=== PATIENT | female | born 1935 | race Caucasian/White ===

== ENCOUNTER 2016-09-07 16:02 | Outpatient (CLI) | payer MEDICARE, OTHER | END 2016-09-07 16:03 | disposition short-term general hospital (02) | LOC: EMS 16:02 | PROVIDERS: ATTEND Surgery | DX: R11.2 Nausea with vomiting, unspecified (principal) | CPT/HCPCS: A0425; A0427; A0888 ==

== ENCOUNTER 2017-05-12 13:39 | Outpatient (CLI) | payer MEDICARE, OTHER | END 2017-05-12 13:40 | disposition short-term general hospital (02) | LOC: EMS 13:39 | PROVIDERS: ATTEND Surgery | DX: H92.01 Otalgia, right ear (principal) | CPT/HCPCS: A0425; A0429; A0888 ==

== ENCOUNTER 2017-11-20 08:38 | Outpatient (CLI) | payer MEDICARE, OTHER | END 2017-11-20 08:39 | disposition critical access hospital (66) | LOC: EMS 08:38 | PROVIDERS: ATTEND Surgery | DX: R53.1 Weakness (principal); R19.7 Diarrhea, unspecified; W19.XXXA Unspecified fall, initial encounter; Y92.009 Unspecified place in unspecified non-institutional (private) residence as the place of occurrence of the external cause | CPT/HCPCS: A0425; A0429 ==

== ENCOUNTER 2017-11-20 08:58 | Emergency (ER) | payer MEDICARE, OTHER ==
[2017-11-20] MEDS ORDERED: SODIUM CHLORIDE 0.9% 1,000 ML IV ONE (09:11)
[2017-11-20] MEDS ORDERED: ACETAMINOPHEN 1,000 MG/100 ML 100 ML IV STA (09:11)
[2017-11-20] MEDS ORDERED: ACETAMINOPHEN 325 MG TABLET PO STA (09:14)
--- NOTE | 2017-11-20 09:29 | ED Physician Documentation ---
History of Present Illness - Stated complaint Stated Complaint: WEAKNESS - Chief complaint Chief Complaint: General - Additonal information Additional information: hx from pt 82 female pmhx multiple myeloma with bony lytic lesions, anemia, neutropenia, chronic back pain, DM neuropathy, CRI, d/p R nephrectomy for renal cell carcinoma Meds revlimid 3 wk on 1 wk off, primidone, hydroxyzine, metformin, folic acid, MVI, gabapentin, loperamide, flonase, levothyroxine, colestipol, carafate, lunesta, fioricet, propanolol, percocet,beconase, macrobid PRN UTI premarin, lomotil, clobetasol cream, tinazidine, omperazole, gent eye gtt All penicllin, bactrim, levaquin, bandages getting chemo for multiple myeloma states she felt dizzy on Monday while doing something with the TV and she fell onto carpeted floor she does not know how she landed she does not recall the fall very well but she does not think she had LOC she was too weak to get up and could not reach her life line so was on the floor alone and incontinent all weekend until her caregiver arrived today and called 911 does not think she hit her head but isn't sure no neck pain R rib pain no abd pain posterior R hip pain denies fever cough NV has diarrhea denies urinary sx no blood thinners in med basket EMS brought in Review of Systems Constitutional: reports: Fatigue. denies: Fever, Chills Throat: denies: Sore throat Cardiac: denies: Chest pain / pressure Respiratory: denies: Dyspnea GI: reports: Diarrhea. denies: Abdominal Pain, Nausea, Vomiting : denies: Dysuria Skin: denies: Laceration (s) Musculoskeletal: reports: Extremity pain, Joint pain. denies: Neck pain Neurologic: reports: Generalized weakness, Syncope (maybe). 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 HEENT: Cataracts - Present Medications Home Medications: Ambulatory Orders Medication Instructions Recorded Confirmed Atorvastatin Calcium [Lipitor] 20 mg PO HS 10/11/12 07/16/13 Butalb/Acetam/Caff 50/325/40 1 each PO Q4-6H PRN 10/11/12 07/16/13 [Fioricet] Cholecalciferol (Vitamin D3) 2,000 unit PO DAILY 10/11/12 07/16/13 [Vitamin D] Clobetasol 0.05% Oint [Temovate] 15 gm TP PRN 10/11/12 07/16/13 Estrogens, Conjugated [Premarin] 0.3 mg PO HS 10/11/12 07/16/13 Eszopiclone [Lunesta] 3 mg PO 10/11/12 07/16/13 Fluticasone [Flonase] 2 sprays CHANDRIKA DAILY 10/11/12 07/16/13 Gabapentin [Neurontin] 300 mg PO TID 10/11/12 07/16/13 Multivitamin [Multivitamins] 1 each PO DAILY 10/11/12 07/16/13 Omeprazole [PriLOSEC] 40 mg PO DAILY 10/11/12 07/16/13 Primidone 100 mg PO TID 10/11/12 07/16/13 Propranolol [Inderal] 80 mg PO QID 10/11/12 07/16/13 Sertraline [Zoloft] 200 mg PO DAILY 10/11/12 07/16/13 glipiZIDE [Glucotrol] 5 mg PO 0730 10/11/12 07/16/13 metFORMIN [Glucophage] 500 mg PO BID 10/11/12 07/16/13 HYDROcod/ACETAM 5/325 [Vicodin 1 - 2 ea PO Q6H PRN #15 tablet 01/05/13 07/16/13 5/325] Liraglutide [Victoza 2-Mio] SQ 06/18/13 07/16/13 Tamsulosin [Flomax] PO DAILY 06/18/13 07/16/13 hydrOXYzine PAMOATE [Vistaril] 25 mg PO Q6HR PRN 06/27/13 07/16/13 Morphine ER [Ms Contin] 20 mg PO BID 07/02/13 07/16/13 - Allergies Allergies/Adverse Reactions: Allergies Allergy/AdvReac Type Severity Reaction Status Date / Time phenazopyridine Allergy Unknown Unknown Verified 11/20/17 09:08 [Phenazopyridine] Sulfa (Sulfonamide Allergy Unknown Hives Verified 11/20/17 09:08 Antibiotics) adhesive Allergy Rash Verified 11/20/17 09:08 celecoxib [From Celebrex] Allergy Rash Verified 11/20/17 09:08 levofloxacin [From Levaquin] Allergy Hives Verified 11/20/17 09:08 Penicillins Allergy Rash Verified 11/20/17 09:08 - Social History Does the pt smoke?: No Smoking Status: Never smoker Does the pt drink ETOH?: No Does the pt have substance abuse?: No - Immunizations Immunizations are current?: No Immunizations: TDAP >10years/unknown - POLST Patient has POLST: No PD ED PE NORMAL - Vitals Vital signs reviewed: Yes - General General: No: Alert and oriented X 3 (mild confusion) - HEENT HEENT: Atraumatic, PERRL - Neck Neck: No bony TTP (but distracting hip injury and so cannot clear) - Cardiac Cardiac: RRR - Respiratory Respiratory: No respiratory distress, Other (TTP R ribs, port s infection) - Abdomen Abdomen: Soft - Back Back: No spinal TTP, Other (no bruises) - Derm Derm: Other (dried stool on legs) - Extremities Extremities: Other (TTP posterior R hip/SI region) - Neuro Neuro: Alert and oriented X 3, rounder and backer 2-12 intact, No motor deficit, No sensory deficit, Normal speech, Other (diffsuely but non focal weakness) Results - Vitals Vitals: Vital Signs - 24 hr 11/20/17 11/21/17 11/21/17 20:01 00:04 08:26 Temperature 37 C Heart Rate 97 92 97 Respiratory 22 16 18 Rate Blood Pressure 127/57 L 125/60 150/90 H O2 Saturation 97 98 99 11/21/17 12:30 Temperature Heart Rate 99 Respiratory 21 Rate Blood Pressure 122/67 O2 Saturation 100 Oxygen O2 Source Room air - EKG (time done) 1018 Rate: Rate (enter#) (80) Rhythm: NSR Intervals: RBBB Compare to prior EKG: Other (RBBB not new) - Labs Labs: Microbiology 11/20/17 14:10 Campylobacter Antigen Assay - Final Stool Stool Culture - Preliminary 11/20/17 14:10 Clostridium difficile (PCR) - Final Stool Occult Blood - Final Laboratory Tests 11/20/17 11/20/17 11/20/17 09:30 09:30 09:30 WBC 3.7 L RBC 3.44 L Hgb 11.5 L Hct 32.9 L MCV 95.6 MCH 33.4 H MCHC 34.9 RDW 18.7 H Plt Count 186 MPV 7.9 Neut # (Auto) 2.8 Lymph # (Auto) 0.4 L [place] # (Auto) 0.1 Eos # (Auto) 0.3 Baso # (Auto) 0.1 Absolute Nucleated RBC 0.00 Nucleated RBC % 0.0 Sodium 138 Potassium 4.0 Chloride 101 Carbon Dioxide 26 Anion Gap 11.0 BUN 19 Creatinine 0.8 Estimated GFR (MDRD) 69 L Glucose 134 H Calcium 8.8 CK-MB (CK-2) 4.0 Troponin I < 0.04 TSH Urine Color Urine Clarity Urine pH Ur Specific Theodore Urine Protein Urine Glucose (UA) Urine Ketones Urine Occult Blood Urine Nitrite Urine Bilirubin Urine Urobilinogen Ur Leukocyte Esterase Ur Microscopic Review Urine Culture Comments 11/20/17 11/20/17 09:30 11:00 WBC RBC Hgb Hct MCV MCH MCHC RDW Plt Count MPV Neut # (Auto) Lymph # (Auto) [place] # (Auto) Eos # (Auto) Baso # (Auto) Absolute Nucleated RBC Nucleated RBC % Sodium Potassium Chloride Carbon Dioxide Anion Gap BUN Creatinine Estimated GFR (MDRD) Glucose Calcium CK-MB (CK-2) Troponin I TSH 3.05 Urine Color YELLOW Urine Clarity CLEAR Urine pH 6.0 Ur Specific Theodore 1.020 Urine Protein NEGATIVE Urine Glucose (UA) NEGATIVE Urine Ketones NEGATIVE Urine Occult Blood NEGATIVE Urine Nitrite NEGATIVE Urine Bilirubin NEGATIVE Urine Urobilinogen 0.2 (NORMAL) Ur Leukocyte Esterase NEGATIVE Ur Microscopic Review NOT INDICATED Urine Culture Comments NOT INDICATED - Rads (name of study) CXR Radiology: See rad report (lytic bnone lesions, no fx no infiltrate, no acute, not new) hip pelvis Radiology: See rad report (no acute, degen changes) CTH Radiology: See rad report (no acute) CT CS Radiology: See rad report (no acute) CT pelvis Radiology: See rad report (numerous lytic lesions unchanged from prior - no acute) PD MEDICAL DECISION MAKING - ED course ED course: spoke with PMD Dr Melton pt now gets onc care at [facility] has had bouts of pna was in a snf in July was dced from home health in September he saw her 3 days ago and she was independent and ambulatory and only came in for a steroid shot for her chronic R side pain no other recent med changes he is aware of Dr melton states daughter Katelyn is the best person to contact - I called both her numbers - no answer - left message Katelyn called - I explained that her mother had fallen and was unable to get up all weekend and was too weak to stand unassisted but that her very extensive work up had not found any infections or injuries meriting admission to the hospital Katelny states she thinks her mother might be faking her sx, that she has responded this way to stress in the past, that she has had recent bad news, also that she cannot afford SNF out of pocket and no recent 3 days stay, Katelyn suggest we "call [facility]PS to get her the care she needs" daughter came in and met with SW SW also thinks may be conversion disorder so we will get telpsych for input either way patient's options are as follows 1) cannot go home because she can not stand unassisted 2) cannot be admitted as she has no admitting diagnosis 3) could go to inpt mental health if telepsych feels will be useful - but is will be very very diff to place a 82 female with cancer who had diarrhea in the ED and cannot stand unassisted 4) she has GREGOR so if not going to mental health, SW can call her machine adjuster leader case trim and try to get her benefits changed to cover SNF or assisted living - this also won't happen at night so pt will be boarding overnight I will be back in AM turned over to syrup mixer pt and family understand the plan resumed care 7 AM 11/21/17 telepscyh done - per note does not think pt will benefit from in mental health so now need to place pt and assist with funding for same anticipate this will be a long process asked for family to bring in pts daily meds so she can take her own per RAHUL pt does have DSHS so is eligible for longterm residential care pt does not want to go to [facility] [place] [facility] anticipate till tomorrow turned over to next shift - Sepsis Event Vital Signs: Vital Signs - 24 hr 11/20/17 11/21/17 11/21/17 20:01 00:04 08:26 Temperature 37 C Heart Rate 97 92 97 Respiratory 22 16 18 Rate Blood Pressure 127/57 L 125/60 150/90 H O2 Saturation 97 98 99 11/21/17 12:30 Temperature Heart Rate 99 Respiratory 21 Rate Blood Pressure 122/67 O2 Saturation 100 Oxygen O2 Source Room air Departure - Departure Clinical Impression: Weakness Condition: Fair
[2017-11-20 09:44] LABS: BASOPHILS # (AUTO) 0.1 10^3/uL (0.0-0.1); BASOPHILS % (AUTO) 1.9 %; EOSINOPHILS # (AUTO) 0.3 10^3/uL (0.0-0.7); EOSINOPHILS % (AUTO) 7.4 %; HGB - HEMOGLOBIN 11.5 g/dL (12.0-16.0); LYMPHOCYTES # (AUTO) 0.4 10^3/uL (1.5-3.5); LYMPHOCYTES % (AUTO) 11.4 %; MEAN CORPUSCULAR HEMOGLOBIN 33.4 pg (27.0-31.0); MEAN CORPUSCULAR HGB CONC 34.9 g/dL (32.0-36.0); MEAN CORPUSCULAR VOLUME 95.6 fL (81.0-99.0); MEAN PLATELET VOLUME 7.9 fL (7.9-10.8); MONOCYTES # (AUTO) 0.1 10^3/uL (0.0-1.0); MONOCYTES % (AUTO) 3.8 %; NEUTROPHILS # (AUTO) 2.8 10^3/uL (1.5-6.6); NEUTROPHILS % (AUTO) 75.5 %; PLT - PLATELET COUNT 186 10^3/uL (130-450); RED BLOOD COUNT 3.44 10^6/uL (4.20-5.40); RED CELL DISTRIBUTION WIDTH 18.7 % (12.0-15.0); WHITE BLOOD COUNT 3.7 x10^3/uL (4.8-10.8)
[2017-11-20 09:56] LABS: CALCIUM 8.8 mg/dL (8.5-10.3); CREATININE 0.8 mg/dL (0.4-1.0)
[2017-11-20 10:00] LABS: TROPONIN I < 0.04 ng/mL (<0.49)
--- NOTE | 2017-11-20 10:48 | XRAY Report ---
Reason: found down X 3 days R ribs pain Procedure Date: 11/20/2017 Accession Number: [id number] / [id number] Procedure: XR - Chest 2 View X-Ray CPT Code: 04573 FULL RESULT: EXAM: CHEST RADIOGRAPHY EXAM DATE: 11/20/2017 09:43 AM. CLINICAL HISTORY: Found down X 3 days R ribs pain. COMPARISON: Reference CT of the chest from 06/20/2013. TECHNIQUE: 2 views. FINDINGS: Lungs/Pleura: Decreased volumes, lungs clear. No effusion or pneumothorax. Mediastinum: A left sided port catheter with the catheter coursing in the left side of a duplicated superior vena cava. Heart size is normal. Other: A fiducial marker is in the right posterior fifth rib. There are expansile lytic rib lesions, possibly old pathologic fractures, but no new acute fractures are identified. A 17 mm lucency in the proximal to mid right humerus probably represents a metastasis. The spinal lytic lesions are not well seen due to technique. 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 Scattered lytic rib lesions, nothing acute. No pneumothorax. RADIA
--- NOTE | 2017-11-20 11:06 | XRAY Report ---
Reason: found down X 3 days R posterior hip pain Procedure Date: 11/20/2017 Accession Number: [id number] / [id number] Procedure: XR - Hip w/Pelvis 2-3V RT CPT Code: FULL RESULT: EXAM: RIGHT HIP AND PELVIS RADIOGRAPHY EXAM DATE: 11/20/2017 09:43 AM. HISTORY: Found down X 3 days R posterior hip pain. COMPARISONS: None. TECHNIQUE: 1 view of the pelvis and 1 view of the hip. FINDINGS: Bones: No acute fracture or bony lesion. Degenerative spurring. Joints: Joint space narrowing. No dislocation. Degenerative changes of the left hip joint and lower lumbar spine. Soft Tissues: Vascular calcifications. IMPRESSION: 1. No acute osseous abnormalities. Normal alignment. 2. Mild degenerative changes of the right hip joint. RADIA
[2017-11-20 12:16] LABS: BILIRUBIN,URINE NEGATIVE (NEGATIVE); GLUCOSE, URINE (UA) NEGATIVE (NEGATIVE); KETONES,URINE (UA) NEGATIVE (NEGATIVE); LEUKOCYTE ESTERASE, URINE NEGATIVE (NEGATIVE); NITRITE,URINE NEGATIVE (NEGATIVE); OCCULT BLOOD,URINE NEGATIVE (NEGATIVE); PROTEIN,URINE NEGATIVE (NEGATIVE); UROBILINOGEN,URINE 0.2 (NORMAL) E.U./dL (NORMAL)
--- NOTE | 2017-11-20 12:20 | CT Report ---
Reason: found down Procedure Date: 11/20/2017 Accession Number: [id number] / [id number] Procedure: CT - Cervical Spine W/O CPT Code: FULL RESULT: EXAM: CT HEAD. CT SCAN OF THE CERVICAL SPINE. EXAM DATE: 11/20/2017 09:56 AM. CLINICAL HISTORY: Found down. COMPARISON: HEAD W/O 07/16/2013 3:53 PM CERVICAL SPINE W/O 11/20/2017 9:42 AM. TECHNIQUE: Noncontrast axial sections through the head and cervical spine. Reformats: Sagittal and coronal of the head, coronal and sagittal of the cervical spine. In accordance with CT protocol optimization, one or more of the following dose reduction techniques were utilized for this exam: automated exposure control, adjustment of mA and/or KV based on patient size, or use of iterative reconstructive technique. FINDINGS CT HEAD: Parenchyma: No intraparenchymal hemorrhage. No evidence of mass, midline shift, or CT findings of infarction. Matthews-white differentiation is distinct. Extraaxial Spaces: Normal for age. No subdural or epidural collections identified. Ventricles: Normal in size and position. Sinuses and orbits: Imaged paranasal sinuses, orbits, and mastoids show no significant abnormality. Bones: No evidence of fracture or calvarial defect. Other: None. FINDINGS CT CERVICAL SPINE: Alignment: The atlantooccipital relationship is preserved. There is no evidence of rotatory subluxation. No scoliosis or spondylolisthesis. Bones: No fracture or bone lesion. Interspace Levels/Facets: There is multilevel degenerative disease which is most pronounced at C4-C6 with mild anterolisthesis of C4 on C5, 2 mm. There is no evidence of traumatic fracture or dislocation. Spinal Canal: No epidural collection is detected. Musculature: Normal. No fatty atrophy. Other: The paravertebral and prevertebral soft tissues are unremarkable. Lung apices demonstrate ground glass opacity. IMPRESSION: Head CT: No acute intracranial abnormality. Cervical Spine CT: No traumatic fracture or dislocation of the cervical spine. RADIA
[2017-11-20 12:23] LABS: CLARITY,URINE CLEAR (CLEAR)
[2017-11-20] MEDS ORDERED: oxyCODONE 5 MG TABLET PO STA (13:30)
--- NOTE | 2017-11-20 15:13 | CT Report ---
Reason: R hip SI region pain, xray neg, cant walk Procedure Date: 11/20/2017 Accession Number: [id number] / [id number] Procedure: CT - Pelvis W/O CPT Code: FULL RESULT: EXAM: CT BONY PELVIS WITHOUT CONTRAST EXAM DATE: 11/20/2017 02:39 PM. CLINICAL HISTORY: Right hip SI region pain, x-ray negative, cannot walk. Past history renal cell carcinoma with bony metastases. COMPARISON: HIP W/PELVIS 2-3V RT 11/20/2017 9:43 AM ABDOMEN/PELVIS W/O 07/17/2013 7:45 PM. TECHNIQUE: Thin-section axial images were acquired of the pelvis without contrast. Post-processing: Coronal and sagittal reformats. Other: None. In accordance with CT protocol optimization, one or more of the following dose reduction techniques were utilized for this exam: automated exposure control, adjustment of mA and/or KV based on patient size, or use of iterative reconstructive technique. FINDINGS: Bones: There are numerous lytic foci with sclerotic margins seen in the femoral heads and bony pelvis. Most of these lesions were present on the prior study in 2013. The findings are consistent with the clinical history of renal cell carcinoma with bony metastases. No visible fracture. Sacroiliac Joints: Mild bilateral sacroiliac joint osteoarthritis. Symphysis Pubis: Unremarkable. Mild bilateral hip osteoarthritis. Musculature: Normal. No fatty atrophy. Pelvic Cavity: Bladder distention. No lymphadenopathy. No free fluid. Other: No lymphadenopathy. No free air or free fluid. The other visualized soft tissues are unremarkable. IMPRESSION: 1. Numerous lytic lesions with sclerotic margins throughout the bony pelvis, upper femora and lower lumbar spine consistent with known metastatic disease not significantly changed since the prior study. RADIA
--- NOTE | 2017-11-21 00:35 | TELEPSYCH PHYS NOTE ---
Telepsych Note - CHIEF COMPLAINT/HX OF PRESENT ILLNESS Cheif Complaint and History of Present Illness: Chief Complaint: weakness History of Present Illness: Pt is an 82 yo female with a hx of depression, anxiety and per her daughter, dementia, diagnosed in 2016. Pt is AxOx2, Date, May. Pt presented to the ED, BIB EMS, called by her EYEGLASS MAKER after she was found on the ground in her home. Pt reported to ED that she was on the floor for the past 2- 3 days. Per staff, the pts medical workup was negative for any acute issues. ED staff consulted psychiatry as the pts daughter expressed concern that the pt was feigning illness, - specifically her current weakness and her recent reported fall. Pt seen and evaluated. Chart reviewed and appreciated. Pt reports she is currently in the hospital as she became dizzy, tripped and fell in her home. States she felt a lot of pain post her fall on her right hip and as a result had difficulty getting up from her fall. When asked why she did not reach out for help, the pt reported she had no access to her phone. States while on the floor she was in continent of stool and urine. States she was embarrassed by her EYEGLASS MAKER seeing her in the mess and then she helped to clean me up. States she is unsure of what she stripped on. States she is surprised her ED workup was negative. States she still experiences pain in her hip though reports it has improved from earlier. States her inability to walk is more related to pain than weakness. Pt reports that she is not depressed though states she has felt depressed in that past. Spoke to pts daughter, Katelyn @ [phone] who reports pt has a prior similar episodes in which during periods of more significant stress or worsening mood she has experienced falls. States at her baseline, she walks with a walker and has home PT for additional strength building. States in the past when she has been more severely depressed she has gone through periods in which she stops eating and drinking. States there is no evidence that the pt was not eating nor drinking. Also, no evidence that the pt stopped taking her medications. States this episode is atypical as she reports looking at her home it appears as though the pt was moving about in her home on the ground. States when she has fallen previously she has reached out for help immediately. States she has been discussing with her the need for retirement placement at this time.. States the pt continues to refuse. States there have been multiple family stressors which have been difficult on everyone. States the pts grandson unexpectedly in March, pts son is medically sick. Katelyn also reports that she is also medical sick with heart problems. States as a result she has been unable to do all of the things she usually does with the pt. States she knows this is a large trigger for her as well. Of note, when property underwriter asked the pt if there were any stressors in her life, pt initially reported no, then stated that she was concerned about her daughters heart problems. Pt reported that she was less concerned about her own medical issues as she reports she is older. States she has been living with cancer for the past 5 years and states my numbers are okay now. She states she is not concerned about her reported current inability to walk as she states she will work with the staff to get myself moving again. She does discuss that my daughter wants me to go to a retirement but I want to go to my home. On ROS, pt denies AVHs, delusions nor SI/HI. Pts affect is incongruent to the situation/content. She reports feeling unconcerned by her report of being unable to walk. Pt does have multiple medical problems, she is elderly and frail thus becoming dizzy and tripping vs. falling is a real possibility. Her affect however is incongruent. She expressed little to no concern about her rep orted current inability to walk and despite her daughter indicating that she is fully aware of all the stressors, pt expressed having no current stress beyond some concern over her daughters health problems. This apparent forgetfulness may be secondary to her reported diagnosis of dementia. There is no current evidence of imminent dangerousness that would require psychiatric admission. Pt denies SI/HI nor psychotic sxs. She is future oriented and notes a willingness and desire to work with medical staff an PT to regain her strength and resume her baseline level of functioning. Pts has home aids however, she reportedly still fell and ended up on the ground x approx.. 3 days. She admits to having difficulty caring for all of her needs. She likely requires a higher level of care given her declining cognitive and functional limitations. Pt should be evaluated for retirement placement - SI/HI/SELF HARM SI/HI/Self Harm Text (Current or History of):: Denies current nor prior hx of suicidality nor homicidality. - PSYCHIATRIC HX/TREATMENT HX Psychiatric: Depression Psychiatric/Treatment Hx Other: No hx of inpt nor outpt treatment. Medications Rxed by her PCP. - MEDICAL HX Does the pt have a hx of MRSA?: No Eyes, Ears, Nose, Throat: None Cardiovascular: Hypertension, High cholesterol Respiratory: None Endocrine/Autoimmune: Type 2 diabetes Gastrointestinal: GERD Musculoskeletal: Chronic back pain - SURGICAL HX General: Cholecystectomy Orthopedic: Knee replacement, Shoulder arthroplasty Gynecologic: Hysterectomy - HOME MEDICATIONS Home Meds (as last confirmed): Patient History Medication Instructions Recorded Confirmed Atorvastatin Calcium [Lipitor] 20 mg PO HS 10/11/12 07/16/13 Butalb/Acetam/Caff 50/325/40 1 each PO Q4-6H PRN 10/11/12 07/16/13 [Fioricet] Cholecalciferol (Vitamin D3) 2,000 unit PO DAILY 10/11/12 07/16/13 [Vitamin D] Clobetasol 0.05% Oint [Temovate] 15 gm TP PRN 10/11/12 07/16/13 Estrogens, Conjugated [Premarin] 0.3 mg PO HS 10/11/12 07/16/13 Eszopiclone [Lunesta] 3 mg PO 10/11/12 07/16/13 Fluticasone [Flonase] 2 sprays CHANDRIKA DAILY 10/11/12 07/16/13 Gabapentin [Neurontin] 300 mg PO TID 10/11/12 07/16/13 Multivitamin [Multivitamins] 1 each PO DAILY 10/11/12 07/16/13 Omeprazole [PriLOSEC] 40 mg PO DAILY 10/11/12 07/16/13 Primidone 100 mg PO TID 10/11/12 07/16/13 Propranolol [Inderal] 80 mg PO QID 10/11/12 07/16/13 Sertraline [Zoloft] 200 mg PO DAILY 10/11/12 07/16/13 glipiZIDE [Glucotrol] 5 mg PO 0730 10/11/12 07/16/13 metFORMIN [Glucophage] 500 mg PO BID 10/11/12 07/16/13 Liraglutide [Victoza 2-Mio] SQ 06/18/13 07/16/13 Tamsulosin [Flomax] PO DAILY 06/18/13 07/16/13 hydrOXYzine PAMOATE [Vistaril] 25 mg PO Q6HR PRN 06/27/13 07/16/13 Morphine ER [Ms Contin] 20 mg PO BID 07/02/13 07/16/13 - ALLERGIES Allergies (as last confirmed): Allergies Allergy/AdvReac Type Severity Reaction Status Date / Time phenazopyridine Allergy Unknown Unknown Verified 11/20/17 09:08 [Phenazopyridine] Sulfa (Sulfonamide Allergy Unknown Hives Verified 11/20/17 09:08 Antibiotics) adhesive Allergy Rash Verified 11/20/17 09:08 celecoxib [From Celebrex] Allergy Rash Verified 11/20/17 09:08 levofloxacin [From Levaquin] Allergy Hives Verified 11/20/17 09:08 Penicillins Allergy Rash Verified 11/20/17 09:08 - FAMILY PSYCH/SUICIDE/SOCIAL HX-MENTAL Family - Suicide - Social Hx and Mental Status Exam: Family Psych hx - none reported Mental Status Exam: Appearance and attire: Dressed in hospital attire Attitude and behavior: cooperative Affect and mood: anxious/bright Association and thought processes: forgetful Thought content: denies delusions. Denies SI/HI. Perceptual: Denies AVHs Sensorium, memory, and orientation AxOx2 Insight and judgment: limited - TREATMENT/PHARMACOLOGICAL RECOMMENDATION Treatment - Pharmacological - Therapy Recommendations: Diagnosis: Major Neurocognitive disorder, dementia, R/O conversion disorder, unspecified Depressive Disorder. Assessment: Pt does have multiple medical problems, she is elderly and frail thus becoming dizzy and tripping vs. falling is a real possibility. Her affect however is incongruent. She expressed little to no concern about her reported current inability to walk and despite her daughter indicating that she is fully aware of all the stressors, pt expressed having no current stress beyond some concern over her daughters health problems. This apparent forgetfulness may be secondary to her reported diagnosis of dementia. There is no current evidence of imminent dangerousness that would require psychiatric admission. Pt denies SI/HI nor psychotic sxs. She is future oriented and notes a willingness and desire to work with medical staff an PT to regain her strength and resume her baseline level of functioning. Pts has home aids however, she reportedly still fell and ended up on the ground x approx.. 3 days. She admits to having difficulty caring for all of her needs. She likely requires a higher level of care given her declining cognitive and functional limitations. Pt should be evaluated for retirement placement Treatment Recommendations: No current indication for psychiatry inpt placement. She likely requires a higher level of ongoing care given her declining cognitive and functional limitations. Pt should be evaluated for possible retirement placement Continue zoloft - TIME SPENT & PROVIDER LOCATION Telepsych consultation conducted via videoconferencing: Yes List names and roles of persons who participated in consult: Patient, Katelyn Maldonado (daughter) Telepsych Provider Location: [place] Time Telepsych consult began: 01:30 Time Telepsych consult completed: 02:10
--- NOTE | 2017-11-21 05:38 | ED Physician Documentation ---
ED Addendum - Addendum Addendum: 11/21/17 05:37 Patient was signed over to me by dr. olson. Patient was evaluated by telepsych who did not recommend inpatient psychiatric care, but agreed that the patient might need further resources. Patient was signed back over to Dr. Olson pending social work evaluation.
[2017-11-22] MEDS ORDERED: ACETAMINOPHEN 325 MG TABLET PO STA (09:44)
--- NOTE | 2017-11-22 15:15 | ED Physician Documentation ---
ED Addendum - Addendum Addendum: 11/22/17 15:13 Patient feeling better today and ambulating independently. She is comfortable going home at this time and will follow up with her [facility] program. Daughter comfortable with plan per SW. No acute emergency medical condition at this time. She may be taking too many of her narcotics and recommend that she stay away from narcotics. Patient counseled regarding signs and symptoms for which I believe and urgent re-evaluation would be necessary. Patient with good understanding of and agreement to plan and is comfortable going home at this time This document was made in part using voice recognition software. While efforts are made to proofread this document, sound alike and grammatical errors may occur. Departure - Departure Disposition: 01 Home, Self Care Clinical Impression: Weakness Condition: Good Instructions: ED Weakness [facility]O Follow-Up: Chaparro Avina MD [Primary Care Provider] - Within 3 Days Comments: Return if you worsen. Follow up with [facility] as instructed by Social work today. You should use a walker at home and try to avoid narcotic medications.
[2017-11-22 18:44] VITALS: BP 132/74
== END 2017-11-22 18:43 | disposition home or self-care (01) ==
LOC: EDUNIT# → ED 08:58
DX: R53.1 Weakness (principal); C90.00 Multiple myeloma not having achieved remission; I45.2 Bifascicular block; F32.9 Major depressive disorder, single episode, unspecified; F03.90 Unspecified dementia, unspecified severity, without behavioral disturbance, psychotic disturbance, mood disturbance, and anxiety; E11.42 Type 2 diabetes mellitus with diabetic polyneuropathy; Z79.84 Long term (current) use of oral hypoglycemic drugs; E78.00 Pure hypercholesterolemia, unspecified; Z96.659 Presence of unspecified artificial knee joint; Z85.53 Personal history of malignant neoplasm of renal pelvis; Z90.5 Acquired absence of kidney; Z92.21 Personal history of antineoplastic chemotherapy
CPT/HCPCS: 36415; 51701; 70450; 71046; 72125; 72192; 73502; 80048; 81003; 82270; 82553; 84443; 84484; 85025; 87045; 87046; 87493; 93005; 96361; 96374; 99284; 99285; A9270; G0425; Q3014; 81001; 87086

== ENCOUNTER 2017-12-20 11:42 | Outpatient (CLI) | payer MEDICARE, OTHER | END 2017-12-20 11:43 | disposition critical access hospital (66) | LOC: EMS 11:42 | PROVIDERS: ATTEND Surgery | DX: R06.02 Shortness of breath (principal) | CPT/HCPCS: A0425; A0429 ==

== ENCOUNTER 2017-12-20 12:07 | Inpatient (IN) | payer MEDICARE, OTHER ==
--- NOTE | 2017-12-20 13:01 | XRAY Report ---
Reason: hypoxia Procedure Date: 12/20/2017 Accession Number: [id number] / [id number] Procedure: XR - Chest 1 View X-Ray CPT Code: 16707 FULL RESULT: EXAM: CHEST RADIOGRAPHY EXAM DATE: 12/20/2017 12:47 PM. CLINICAL HISTORY: Hypoxia. COMPARISON: CHEST 2 VIEW 11/20/2017 9:43 AM CHEST W/O 06/20/2013 4:57 PM. TECHNIQUE: 1 view. FINDINGS: Lungs/Pleura: No focal opacities evident. No pleural effusion. No pneumothorax. Lung volumes are overall low. Mediastinum: Stable cardiomediastinal silhouette. Other: Chest port in stable position, known duplicated SVC. IMPRESSION: Low lung volumes with no detected acute cardiopulmonary abnormality. RADIA
[2017-12-20 13:12] LABS: BASOPHILS # (AUTO) 0.1 10^3/uL (0.0-0.1); BASOPHILS % (AUTO) 3.2 %; EOSINOPHILS # (AUTO) 0.2 10^3/uL (0.0-0.7); EOSINOPHILS % (AUTO) 5.6 %; HGB - HEMOGLOBIN 10.3 g/dL (12.0-16.0); LYMPHOCYTES # (AUTO) 0.6 10^3/uL (1.5-3.5); LYMPHOCYTES % (AUTO) 20.1 %; MEAN CORPUSCULAR HEMOGLOBIN 34.3 pg (27.0-31.0); MEAN CORPUSCULAR HGB CONC 33.9 g/dL (32.0-36.0); MEAN CORPUSCULAR VOLUME 101.1 fL (81.0-99.0); MEAN PLATELET VOLUME 8.4 fL (7.9-10.8); MONOCYTES # (AUTO) 0.4 10^3/uL (0.0-1.0); MONOCYTES % (AUTO) 12.7 %; NEUTROPHILS # (AUTO) 1.7 10^3/uL (1.5-6.6); NEUTROPHILS % (AUTO) 58.4 %; PLT - PLATELET COUNT 151 10^3/uL (130-450); RED BLOOD COUNT 3.01 10^6/uL (4.20-5.40); RED CELL DISTRIBUTION WIDTH 19.4 % (12.0-15.0); WHITE BLOOD COUNT 2.9 x10^3/uL (4.8-10.8)
[2017-12-20] MEDS ORDERED: IPRATROPIUM/ALBUTEROL 3 ML NEB INH STA (13:20)
[2017-12-20 13:27] LABS: ALBUMIN 2.9 g/dL (3.2-5.5); ALBUMIN/GLOBULIN RATIO 0.9 (1.0-2.2); BILIRUBIN,TOTAL 0.7 mg/dL (0.2-1.0); CALCIUM 7.7 mg/dL (8.5-10.3); CREATININE 0.9 mg/dL (0.4-1.0); TOTAL PROTEIN 6.1 g/dL (6.7-8.2)
[2017-12-20 13:29] LABS: BILIRUBIN,URINE NEGATIVE (NEGATIVE); GLUCOSE, URINE (UA) NEGATIVE (NEGATIVE); KETONES,URINE (UA) NEGATIVE (NEGATIVE); LEUKOCYTE ESTERASE, URINE TRACE (NEGATIVE); NITRITE,URINE NEGATIVE (NEGATIVE); OCCULT BLOOD,URINE NEGATIVE (NEGATIVE); PROTEIN,URINE 30 mg/dL (NEGATIVE); UROBILINOGEN,URINE 0.2 (NORMAL) E.U./dL (NORMAL)
[2017-12-20 13:36] LABS: CLARITY,URINE CLOUDY (CLEAR)
[2017-12-20 13:37] LABS: BACTERIA,URINE Many /HPF (None Seen); RBC,URINE 0-5 /HPF (0-5); SQUAMOUS EPITHELIAL CELL,UR NONE SEEN (<= Few); WBC CLUMPS,URINE PRESENT
[2017-12-20 13:58] LABS: PLATELET ESTIMATE, MANUAL NORMAL (130-450,000) (NORMAL); PLATELET MORPHOLOGY 1+ LARGE PLATELETS (NORMAL)
[2017-12-20] MEDS ORDERED: cefTRIAXone 1 GM VIAL IVP STA (14:26)
[2017-12-20] MEDS ORDERED: ALBUTEROL NEB 2.5 MG/3 ML INH STA (14:47)
--- NOTE | 2017-12-20 14:49 | ED Physician Documentation ---
History of Present Illness - Stated complaint Stated Complaint: DYSPNEA - Chief complaint Chief Complaint: Resp - History obtained from History obtained from: Patient, EMS - History of Present Illness Timing: Last night Pain level max: 0 Pain level now: 0 Improved by: rest Worsened by: exertion - Additonal information Additional information: Patient is an 82-year-old female who presents to the emergency department with dyspnea since last night. She states that she feels similar to when she has had pneumonia. Has been on multiple antibiotics for UTIs recently. Has not fallen or struck her head. Denies any pain anywhere. Does have a nonproductive cough. Unsure if she has had fevers or not. She was hypoxic when EMS arrived, pulse ox of 80. Does not use oxygen at home. Also does not currently use inhalers or nebulizers. She states that she does use a nebulizer when she has pneumonia Review of Systems Ten Systems: 10 systems reviewed and negative Constitutional: reports: Chills. denies: Fever Ears: denies: Ear pain Nose: reports: Rhinorrhea / runny nose Throat: denies: Sore throat Cardiac: denies: Chest pain / pressure Respiratory: reports: Dyspnea, Cough, Wheezing GI: denies: Abdominal Pain, Nausea, Vomiting, Diarrhea Skin: denies: Rash Musculoskeletal: denies: Neck pain, Back pain Neurologic: denies: Focal weakness, Numbness, Headache PD PAST MEDICAL HISTORY - Past Medical History Cardiovascular: Hypertension, High cholesterol Respiratory: None Endocrine/Autoimmune: Type 2 diabetes GI: GERD HEENT: None Psych: Depression Musculoskeletal: Chronic back pain - Past Surgical History Past Surgical History: Yes General: Cholecystectomy Ortho: Knee replacement, Shoulder arthroplasty /METHODOLOGIST: Hysterectomy HEENT: Cataracts - Present Medications Home Medications: Ambulatory Orders Medication Instructions Recorded Confirmed Atorvastatin Calcium [Lipitor] 20 mg PO HS 10/11/12 07/16/13 Butalb/Acetam/Caff 50/325/40 1 each PO Q4-6H PRN 10/11/12 07/16/13 [Fioricet] Cholecalciferol (Vitamin D3) 2,000 unit PO DAILY 10/11/12 07/16/13 [Vitamin D] Clobetasol 0.05% Oint [Temovate] 15 gm TP PRN 10/11/12 07/16/13 Estrogens, Conjugated [Premarin] 0.3 mg PO HS 10/11/12 12/20/17 Eszopiclone [Lunesta] 3 mg PO QPM PRN 10/11/12 12/20/17 Fluticasone [Flonase] 2 sprays CHNADRIKA DAILY 10/11/12 07/16/13 Gabapentin [Neurontin] 300 mg PO TID 10/11/12 07/16/13 Multivitamin [Multivitamins] 1 each PO DAILY 10/11/12 07/16/13 Primidone 100 mg PO TID 10/11/12 07/16/13 Propranolol [Inderal] 80 mg PO QID 10/11/12 07/16/13 glipiZIDE [Glucotrol] 5 mg PO 0730 10/11/12 07/16/13 metFORMIN [Glucophage] 500 mg PO BID 10/11/12 07/16/13 HYDROcod/ACETAM 5/325 [Vicodin 1 - 2 ea PO Q6H PRN #15 tablet 01/05/13 07/16/13 5/325] Liraglutide [Victoza 2-Mio] SQ 06/18/13 07/16/13 Tamsulosin [Flomax] PO DAILY 06/18/13 07/16/13 hydrOXYzine PAMOATE [Vistaril] 25 mg PO Q6HR PRN 06/27/13 07/16/13 Morphine ER [Ms Contin] 20 mg PO BID 07/02/13 07/16/13 Diphenoxylate HCl/Atropine 1 tab PO BID PRN 12/20/17 12/20/17 [Diphenoxylate-Atrop 2.5-0.025] Omeprazole 40 mg PO BIDAC 12/20/17 12/20/17 Sertraline HCl 100 mg PO DAILY 12/20/17 12/20/17 - Allergies Allergies/Adverse Reactions: Allergies Allergy/AdvReac Type Severity Reaction Status Date / Time phenazopyridine Allergy Unknown Unknown Verified 12/20/17 12:27 [Phenazopyridine] Sulfa (Sulfonamide Allergy Unknown Hives Verified 12/20/17 12:27 Antibiotics) adhesive Allergy Rash Verified 12/20/17 12:27 celecoxib [From Celebrex] Allergy Rash Verified 12/20/17 12:27 levofloxacin [From Levaquin] Allergy Hives Verified 12/20/17 12:27 Penicillins Allergy Rash Verified 12/20/17 12:27 morphine AdvReac Unknown Verified 12/20/17 20:44 - Social History Does the pt smoke?: No Smoking Status: Never smoker Does the pt drink ETOH?: No Does the pt have substance abuse?: No - Immunizations Immunizations are current?: No Immunizations: TDAP >10years/unknown - POLST Patient has POLST: No PD ED PE NORMAL - Vitals Vital signs reviewed: Yes - General General: Alert and oriented X 3, No acute distress - HEENT HEENT: Moist mucous membranes - Neck Neck: Supple, no meningeal sign - Cardiac Cardiac: RRR - Respiratory Respiratory: Other (Diminished breath sounds bilaterally) - Abdomen Abdomen: Soft, Non tender, Non distended - Derm Derm: Warm and dry - Extremities Extremities: No calf tenderness / cord - Neuro Neuro: Alert and oriented X 3 Results - Vitals Vitals: Vital Signs - 24 hr 12/20/17 12/20/17 12/20/17 12:20 13:55 14:16 Temperature 36.8 C Heart Rate 79 70 78 Heart Rate [ Brachial] Respiratory 18 16 20 Rate Blood Pressure 111/73 122/86 H Blood Pressure [Right Brachial artery] O2 Saturation 97 95 12/20/17 12/20/17 12/20/17 14:43 14:44 14:45 Temperature Heart Rate Heart Rate [ Brachial] Respiratory Rate Blood Pressure Blood Pressure [Right Brachial artery] O2 Saturation 90 L 85 L 95 12/20/17 12/20/17 12/20/17 15:03 17:00 18:38 Temperature 37.1 C Heart Rate 78 78 Heart Rate [ 80 Brachial] Respiratory 18 16 20 Rate Blood Pressure 117/62 Blood Pressure 120/60 [Right Brachial artery] O2 Saturation 99 97 Oxygen O2 Source Nasal cannula Oxygen Flow Rate 2 - Labs Labs: Laboratory Tests 12/20/17 12/20/17 12/20/17 12:52 12:52 12:52 WBC 2.9 L RBC 3.01 L Hgb 10.3 L Hct 30.5 L MCV 101.1 H MCH 34.3 H MCHC 33.9 RDW 19.4 H Plt Count 151 MPV 8.4 Neut # (Auto) 1.7 Lymph # (Auto) 0.6 L [place] # (Auto) 0.4 Eos # (Auto) 0.2 Baso # (Auto) 0.1 Absolute Nucleated RBC 0.00 Nucleated RBC % 0.0 Manual Slide Review Indicated WBC Morphology NORMAL APPEARANCE Platelet Estimate NORMAL (130-450,000) Platelet Morphology 1+ LARGE PLATELETS RBC Morph Micro Appear 1+ HYPOCHROMASIA D-Dimer Sodium 137 Potassium 4.1 Chloride 99 L Carbon Dioxide 27 Anion Gap 11.0 BUN 17 Creatinine 0.9 Estimated GFR (MDRD) 60 L Glucose 142 H Lactic Acid Calcium 7.7 L Total Bilirubin 0.7 AST 16 ALT 13 Alkaline Phosphatase 111 Troponin I B-Natriuretic Peptide 1146 H Total Protein 6.1 L Albumin 2.9 L Globulin 3.2 Albumin/Globulin Ratio 0.9 L Lipase 23 Urine Color Urine Clarity Urine pH Ur Specific Allison Urine Protein Urine Glucose (UA) Urine Ketones Urine Occult Blood Urine Nitrite Urine Bilirubin Urine Urobilinogen Ur Leukocyte Esterase Urine RBC Urine WBC Urine WBC Clumps Ur Squamous Epith Cells Urine Bacteria Ur Microscopic Review Urine Culture Comments 12/20/17 12/20/17 12/20/17 13:12 15:15 16:25 WBC RBC Hgb Hct MCV MCH MCHC RDW Plt Count MPV Neut # (Auto) Lymph # (Auto) [place] # (Auto) Eos # (Auto) Baso # (Auto) Absolute Nucleated RBC Nucleated RBC % Manual Slide Review WBC Morphology Platelet Estimate Platelet Morphology RBC Morph Micro Appear D-Dimer > 1050.0 H Sodium Potassium Chloride Carbon Dioxide Anion Gap BUN Creatinine Estimated GFR (MDRD) Glucose Lactic Acid 1.0 Calcium Total Bilirubin AST ALT Alkaline Phosphatase Troponin I B-Natriuretic Peptide Total Protein Albumin Globulin Albumin/Globulin Ratio Lipase Urine Color YELLOW Urine Clarity CLOUDY Urine pH 6.0 Ur Specific Allison 1.025 Urine Protein 30 H Urine Glucose (UA) NEGATIVE Urine Ketones NEGATIVE Urine Occult Blood NEGATIVE Urine Nitrite NEGATIVE Urine Bilirubin NEGATIVE Urine Urobilinogen 0.2 (NORMAL) Ur Leukocyte Esterase TRACE H Urine RBC 0-5 Urine WBC >25 H Urine WBC Clumps PRESENT Ur Squamous Epith Cells NONE SEEN Urine Bacteria Many H Ur Microscopic Review INDICATED Urine Culture Comments INDICATED 12/20/17 16:25 WBC RBC Hgb Hct MCV MCH MCHC RDW Plt Count MPV Neut # (Auto) Lymph # (Auto) [place] # (Auto) Eos # (Auto) Baso # (Auto) Absolute Nucleated RBC Nucleated RBC % Manual Slide Review WBC Morphology Platelet Estimate Platelet Morphology RBC Morph Micro Appear D-Dimer Sodium Potassium Chloride Carbon Dioxide Anion Gap BUN Creatinine Estimated GFR (MDRD) Glucose Lactic Acid Calcium Total Bilirubin AST ALT Alkaline Phosphatase Troponin I 0.44 B-Natriuretic Peptide Total Protein Albumin Globulin Albumin/Globulin Ratio Lipase Urine Color Urine Clarity Urine pH Ur Specific Allison Urine Protein Urine Glucose (UA) Urine Ketones Urine Occult Blood Urine Nitrite Urine Bilirubin Urine Urobilinogen Ur Leukocyte Esterase Urine RBC Urine WBC Urine WBC Clumps Ur Squamous Epith Cells Urine Bacteria Ur Microscopic Review Urine Culture Comments - Rads (name of study) cxr Radiology: Prelim report reviewed, EMP read contemporaneously, See rad report (No acute abnormality) PD MEDICAL DECISION MAKING - ED course Complexity details: reviewed results, re-evaluated patient, considered differential, d/w patient ED course: Patient is an 82-year-old female who presents to the emergency department with difficulty breathing since last night. States it feels similar to her prior episodes of pneumonia when inhalers have helped. Given nebulizer treatments and does feel better but is persistently hypoxic. We will admit her to the hospital for further evaluation and care. Discussed the case with Dr. Cade, hospitalist who accepts This document was made in part using voice recognition software. While efforts are made to proofread this document, sound alike and grammatical errors may occur. Departure - Departure Disposition: [facility] DC/Xfer Clinical Impression: Hypoxia UTI (urinary tract infection) Qualifiers: Urinary tract infection type: acute cystitis Hematuria presence: without hematuria Qualified Code(s): N30.00 - Acute cystitis without hematuria URI (upper respiratory infection) Qualifiers: URI type: unspecified viral URI Qualified Code(s): J06.9 - Acute upper respiratory infection, unspecified Condition: Stable Discharge Date/Time: 12/20/17 18:37
[2017-12-20] MEDS ORDERED: ALBUTEROL NEB 2.5 MG/3 ML INH PRN (15:54)
[2017-12-20] MEDS ORDERED: IPRATROPIUM/ALBUTEROL 3 ML NEB INH PRN (15:54)
[2017-12-20] MEDS ORDERED: SODIUM CHLORIDE FLUSH 0.9% 10 ML SYRINGE IVP PRN (16:03)
[2017-12-20] MEDS ORDERED: ONDANSETRON 4 MG/2 ML VIAL IVP PRN (16:03)
[2017-12-20] MEDS ORDERED: methylPREDNISolone SUCCINATE 40 MG/ML VIAL IVP SCH (17:00)
--- NOTE | 2017-12-20 17:00 | HISTORY & PHYSICAL EXAMINATION ---
Chief Complaint - Chief Complaint Chief Complaint: shortness of breath History of Present Illness - History of Present Illness HPI Comment/Other: Ms. 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 pt report she suddenly developed shortness of breath on last night, and continue to have SOB today. She denies hx of Asthma, or COPD. She denies fever, chill, cough, chest pain. CXR is unremarkable. pt had significant elevated D-dimer. CTA reveals moderate to large clot burden with central embolus, consistent with associated right heart strain. Dr. Camacho helped to call [facility] intensive team. From them, recommendations are: treat with Heparin, no TPA in consideration of high risk of intracranial bleeding based on pt's age, medical history. History - Past Medical History Cardiovascular: reports: Hypertension, High cholesterol Respiratory: reports: None Endocrine/Autoimmune: reports: Type 2 diabetes GI: reports: GERD HEENT: reports: None Psych: reports: Depression Musculoskeletal: reports: Chronic back pain MRSA Hx?: No - Past Surgical History General: reports: Cholecystectomy Ortho: reports: Knee replacement, Shoulder arthroplasty /[employer]: reports: Hysterectomy HEENT: reports: Cataracts - Family & Social History Family History: Mother: , Cancer, COPD/Emphysema, Father: Family History Comment/Other: pt is living [facility], pt had four children. pt did not know much about her father medical history, but know her mother from cancer and COPD and heavy smoking. - POLST Patient has POLST: No POLST Status: Full Code Meds/Allgy - Home Medications Home Medications: Ambulatory Orders Medication Instructions Recorded Confirmed Atorvastatin Calcium [Lipitor] 20 mg PO HS 10/11/12 07/16/13 Butalb/Acetam/Caff 50/325/40 1 each PO Q4-6H PRN 10/11/12 07/16/13 [Fioricet] Cholecalciferol (Vitamin D3) 2,000 unit PO DAILY 10/11/12 07/16/13 [Vitamin D] Clobetasol 0.05% Oint [Temovate] 15 gm TP PRN 10/11/12 07/16/13 Estrogens, Conjugated [Premarin] 0.3 mg PO HS 10/11/12 12/20/17 Eszopiclone [Lunesta] 3 mg PO QPM PRN 10/11/12 12/20/17 Fluticasone [Flonase] 2 sprays CHANDRIKA DAILY 10/11/12 07/16/13 Gabapentin [Neurontin] 300 mg PO TID 10/11/12 07/16/13 Multivitamin [Multivitamins] 1 each PO DAILY 10/11/12 07/16/13 Primidone 100 mg PO TID 10/11/12 07/16/13 Propranolol [Inderal] 80 mg PO QID 10/11/12 07/16/13 glipiZIDE [Glucotrol] 5 mg PO 0730 10/11/12 07/16/13 metFORMIN [Glucophage] 500 mg PO BID 10/11/12 07/16/13 HYDROcod/ACETAM 5/325 [Vicodin 1 - 2 ea PO Q6H PRN #15 tablet 01/05/13 07/16/13 5/325] Liraglutide [Victoza 2-Mio] SQ 06/18/13 07/16/13 Tamsulosin [Flomax] PO DAILY 06/18/13 07/16/13 hydrOXYzine PAMOATE [Vistaril] 25 mg PO Q6HR PRN 06/27/13 07/16/13 Morphine ER [Ms Contin] 20 mg PO BID 07/02/13 07/16/13 Diphenoxylate HCl/Atropine 1 tab PO BID PRN 12/20/17 12/20/17 [Diphenoxylate-Atrop 2.5-0.025] Omeprazole 40 mg PO BIDAC 12/20/17 12/20/17 Sertraline HCl 100 mg PO DAILY 12/20/17 12/20/17 - Allergies Allergies/Adverse Reactions: Allergies Allergy/AdvReac Type Severity Reaction Status Date / Time phenazopyridine Allergy Unknown Nausea Verified 12/21/17 00:26 [Phenazopyridine] Sulfa (Sulfonamide Allergy Unknown Hives Verified 12/20/17 12:27 Antibiotics) adhesive Allergy Rash Verified 12/20/17 12:27 celecoxib [From Celebrex] Allergy Rash Verified 12/20/17 12:27 levofloxacin [From Levaquin] Allergy Hives Verified 12/20/17 12:27 Penicillins Allergy Rash Verified 12/20/17 12:27 morphine AdvReac Unknown Verified 12/20/17 20:44 Review of Systems - Constitutional Constitutional: denies: Fatigue, Fever, Chills, Malaise, Weakness, Poor appetite, Diaphoresis, Night sweats - Eyes Eyes: denies: Pain, Irritation, Amaurosis, Blurred vision, Spots in vision, Field loss, Vision loss, Dipolpia - Ears, Nose & Throat Ears, Nose & Throat: denies: Ear pain, Hearing loss, Hearing aids, Tinnitus, Vertigo, Nasal pain, Nasal discharge, Nosebleeds, Nasal obstruction, Nasal congestion, Postnasal drainage, Dentures, Sore throat, Hoarseness, Mouth lesions, Bleeding gums, Dental decay - Cardiovascular Cariovascular: reports: Exertional dyspnea, Decr. exercise tolerance. denies: Irregular heart rate, Palpitations, Chest pain, Edema, Lightheadedness, Syncope - Respiratory Respiratory: reports: SOB at rest, SOB with exertion. denies: Cough, Sputum pro duction, Wheezing, Snoring, Hemoptysis, Orthopnea, Apnea, Stridor, Pleuritic pain, Other - Gastrointestinal Gastrointestinal: denies: Abdominal pain, Abdominal distention, Constipation, Diarrhea, Change in bowel habits, Rectal bleeding, Black stools, Bloody stools, Vomiting, Patrice blood emesis, Coffee grounds emesis, Reflux/heartburn - Genitourinary Genitourinary: denies: Dysuria, Frequency, Urgency, Hematuria, Incontinence, Flank pain, Nocturia, Urethral discharge - Musculoskeletal Musculoskeletal: denies: Muscle pain, Back pain, Muscle aches, Stiffness, Limited range of motion, Muscle weakness, Gout, Joint pain - Integumentary Integumentary: denies: Rash, Pruritis, Lesions, Dryness, Lumps, Acne, Pigment changes, Nail changes - Neurological Neurological: denies: General weakness, Focal weakness, Headache, Dizziness, Numbness, Memory problems, Pre-existing deficit, Abnormal gait, Seizures, In coordination, Slurred speech - Psychiatric Psychiatric: denies: Depression, Anxiety, Suicidal, Delusions, Hallucinations, Homicidal - Endocrine Endocrine: denies: Polyuria, Polydypsia, Polyphagia, Intolerance to cold - Hematologic/Lymphatic Hematologic/Lymphatic: denies: Anemia, Bruising, Petechiae, Blood clots, Lymphadenopathy, Bleeding tendencies Prior Level of Functionality: pt is living with her family Exam - Vital Signs Reviewed Vital Signs: Yes Vital Signs: Vital Signs x48h Temp Pulse Resp BP Pulse Ox 12/20/17 15:03 78 18 12/20/17 14:45 95 12/20/17 14:44 85 L 12/20/17 14:43 90 L 12/20/17 14:16 78 20 122/86 H 95 12/20/17 13:55 70 16 12/20/17 12:20 36.8 C 79 18 111/73 97 - Physical Exam General Appearance: positive: No acute distress, Mild distress. negative: Lethargic Eyes Bilateral: positive: Normal inspection, PERRL, No lid inflammation, Conjunctivae nml ENT: positive: ENT inspection nml, Pharynx nml, No signs of dehydration. negative: Purulent nasal drainage, Pharyngeal erythema, Oral lesions Neck: positive: Nml inspection, Thyroid nml, No JVD, Trachea midline. negative: Thyromegaly, Lymphadenopathy (R), Lymphadenopathy (L), Stiff neck, Swelling/bruising, Tracheal deviation Respiratory: positive: Chest non-tender. negative: No respiratory distress, Breath sounds nml, Wheezes, Rales, Rhonchi Cardiovascular: positive: Regular rate & rhythm, No murmur, No gallop. negative: Irregularly irregular, Extrasystoles, Tachycardia, Bradycardia, JVD present, Systolic murmur, Diastolic murmur Peripheral Pulses: positive: 2+ Abdomen: positive: Non-tender, No organomegaly, Nml bowel sounds, No distention. negative: Tenderness, Guarding, Rebound Back: positive: Nml inspection. negative: CVA tenderness (R), CVA tenderness (L) Skin: positive: Color nml, No rash, Warm, Dry. negative: Cyanosis, Diaphoresis, Pallor Extremities: positive: Non-tender, Full ROM, Nml appearance. negative: Calf tenderness, Joint swelling, Brannon's sign/cords Neurologic/Psychiatric: positive: Oriented x3, Motor nml, Sensation nml, Mood/affect nml. negative: Weakness, Sensory loss, Facial droop, Slurred/abnml speech, Depressed mood/affect Conclusion/Plan - Problem List (1) Pulmonary embolism Conclusion/Plan: Moderate to large central PE, pt present significantly SOB, followup recommendation: Heparin IV and heparin protocol tele and vital monitor (2) Shortness of breath Conclusion/Plan: It appears caused by PE treat with Heparin PRN with INH treatment O2 supplement as needed (3) Elevated troponin Conclusion/Plan: it appears from strain from moderate to large to the right ventricle, per CTA analysis. pt denies chest pain. EKG is pending will continue serial troponin tele and vital monitor pt is on Heparin and protocol (4) Pancytopenia Conclusion/Plan: WBC 2.9, RBC 3. it appears from her MM advise pt followup her oncologist as out-pt (5) DM2 (diabetes mellitus, type 2) Conclusion/Plan: slide scale, ACHS hypoglycemia protocol (6) UTI (urinary tract infection) Conclusion/Plan: UA reveals UTI, Rocephin and follow up UA culture (7) Full code status Conclusion/Plan: pt request full code - Lab Results Fish Bones: 12/21/17 10:57 12/21/17 03:15 Core Measures - Anticipated LOS I expect patient to be DC'd or transferred within 96 hours.: Yes - DVT/VTE - Prophylaxis VTE/DVT Device ordered at admit?: Yes
[2017-12-20] MEDS ORDERED: IOPAMIDOL-300 100 ML VIAL ONE (17:11)
[2017-12-20] MEDS ORDERED: MORPHINE 2 MG/ML CARPUJECT IVP PRN (18:31)
--- NOTE | 2017-12-20 18:57 | CT Report ---
Reason: suddenly SOB Procedure Date: 12/20/2017 Accession Number: [id number] / [id number] Procedure: CT - Chest Angio (PE) CPT Code: FULL RESULT: EXAM: CT ANGIOGRAM CHEST EXAM DATE: 12/20/2017 06:23 PM. CLINICAL HISTORY: Suddenly SOB. COMPARISON: CHEST W/O 06/20/2013 4:57 PM CH/ABD/PEL 07/07/2009 11:37 AM. TECHNIQUE: Routine helical imaging was performed through the chest in the pulmonary arterial phase. IV Contrast: ISOVUE 300 80mL. Reconstructions: Coronal 3-D MIP reconstructions.Sagittal and coronal. In accordance with CT protocol optimization, one or more of the following dose reduction techniques were utilized for this exam: automated exposure control, adjustment of mA and/or KV based on patient size, or use of iterative reconstructive technique. FINDINGS: Pulmonary Arteries: Diagnostic quality: Adequate through the segmental arteries. There is pulmonary embolism within branch vessel supplying all lung lobes. Thrombus is seen within the central left pulmonary artery. There is enlargement of the main pulmonary artery. There is flattening of the interventricular septum and increased RV/LV ratio. Lungs/Pleura: The lungs demonstrate a mosaic parenchymal pattern with mildly increased perihilar groundglass. No evidence of lobar infiltrate. No effusion. No pneumothorax. Mediastinum: Mild cardiomegaly. 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 There are coronary artery calcifications. There are no enlarged axillary, supraclavicular, mediastinal, or hilar lymph nodes. Thoracic Aorta: There is thoracic aortic tortuosity. Upper Abdomen: Unremarkable. Other: None. IMPRESSION: 1. There is pulmonary embolism. Moderate to large clot burden with central embolus. There is flattening of the interventricular septum and increased RV/LV ratio, consistent with associated right heart strain. 2. The lungs demonstrate a mosaic parenchymal pattern. The relative groundglass opacity is located within a perihilar distribution; findings are suspicious for lung edema rather than air trapping. 3. No evidence of lobar infiltrate. No pneumothorax. 4. There is thoracic aortic tortuosity. There is no evidence of dissection or aneurysm. 5. Incidental note is made of a left-sided SVC. RADIA The above findings were discussed with Dr Brown by Dr. Merry Parker at 18:55 hrs on 12/20/17.
[2017-12-20] MEDS: FUROSEMIDE 20 MG TABLET PO SCH (19:39)
[2017-12-20] MEDS: SODIUM CHLORIDE FLUSH 0.9% 10 ML SYRINGE IVP SCH (19:40)
[2017-12-20] MEDS: ACETAMINOPHEN 325 MG TABLET PO PRN (20:47)
[2017-12-20] MEDS: FAMOTIDINE 20 MG TABLET PO SCH (20:48)
[2017-12-20] MEDS: INSULIN ASPART 300 UNIT/3 ML PEN SUBQ SCH (20:57)
[2017-12-20] MEDS ORDERED: HEPARIN 5,000 UNIT/ML VIAL IVP SCH (21:00)
[2017-12-20] MEDS ORDERED: ENOXAPARIN 80 MG/0.8 ML SYRINGE SUBQ SCH (21:00)
[2017-12-20] MEDS: HEPARIN 25000UNITS/500ML (D5W) 25,000 UNIT/500 ML BAG IV SCH (21:19)
[2017-12-20 21:24] LABS: HGB - HEMOGLOBIN 9.8 g/dL (12.0-16.0); MEAN CORPUSCULAR HEMOGLOBIN 33.4 pg (27.0-31.0); MEAN CORPUSCULAR HGB CONC 32.8 g/dL (32.0-36.0); MEAN CORPUSCULAR VOLUME 101.8 fL (81.0-99.0); MEAN PLATELET VOLUME 8.7 fL (7.9-10.8); RED BLOOD COUNT 2.95 10^6/uL (4.20-5.40); RED CELL DISTRIBUTION WIDTH 19.3 % (12.0-15.0); WHITE BLOOD COUNT 2.9 x10^3/uL (4.8-10.8)
[2017-12-20 22:03] LABS: HB2 TOTAL 10.2 g/dL; HEMOGLOBIN A1C 0.47 g/dL; HEMOGLOBIN A1C % 6.4 % (4.6-6.2)
[2017-12-21] MEDS ORDERED: COD LIVER OIL/ZINC OXIDE 113 GM TUBE TOP PRN (00:10)
[2017-12-21] MEDS ORDERED: LIDOCAINE 2% URO-JET 5 ML SYRINGE UR SCH (00:55)
[2017-12-21] MEDS ORDERED: LIDOCAINE JELLY 2% 5 ML TUBE TOP ONE (01:03)
[2017-12-21] MEDS ORDERED: LIDOCAINE 2% URO-JET 5 ML SYRINGE UR ONE (01:07)
[2017-12-21] MEDS: SODIUM CHLORIDE FLUSH 0.9% 10 ML SYRINGE IVP SCH ×3 (01:26→16:59)
[2017-12-21 03:29] LABS: BASOPHILS # (AUTO) 0.1 10^3/uL (0.0-0.1); BASOPHILS % (AUTO) 2.3 %; EOSINOPHILS # (AUTO) 0.2 10^3/uL (0.0-0.7); EOSINOPHILS % (AUTO) 5.9 %; HGB - HEMOGLOBIN 9.8 g/dL (12.0-16.0); LYMPHOCYTES # (AUTO) 0.5 10^3/uL (1.5-3.5); LYMPHOCYTES % (AUTO) 17.8 %; MEAN CORPUSCULAR HEMOGLOBIN 34.2 pg (27.0-31.0); MEAN CORPUSCULAR HGB CONC 33.3 g/dL (32.0-36.0); MEAN CORPUSCULAR VOLUME 102.8 fL (81.0-99.0); MEAN PLATELET VOLUME 8.8 fL (7.9-10.8); MONOCYTES # (AUTO) 0.3 10^3/uL (0.0-1.0); MONOCYTES % (AUTO) 10.2 %; NEUTROPHILS # (AUTO) 1.9 10^3/uL (1.5-6.6); NEUTROPHILS % (AUTO) 63.8 %; PLT - PLATELET COUNT 139 10^3/uL (130-450); RED BLOOD COUNT 2.85 10^6/uL (4.20-5.40); RED CELL DISTRIBUTION WIDTH 19.8 % (12.0-15.0)
[2017-12-21 03:36] LABS: ALBUMIN 2.7 g/dL (3.2-5.5); ALBUMIN/GLOBULIN RATIO 0.9 (1.0-2.2); BILIRUBIN,TOTAL 0.6 mg/dL (0.2-1.0); CALCIUM 7.7 mg/dL (8.5-10.3); CREATININE 0.8 mg/dL (0.4-1.0); MAGNESIUM 1.6 mg/dL (1.7-2.8); TOTAL PROTEIN 5.8 g/dL (6.7-8.2)
[2017-12-21] MEDS ORDERED: POTASSIUM CHLORIDE 20 MEQ TABLET PO ONE ×3 (04:18→08:04)
[2017-12-21] MEDS: ACETAMINOPHEN 325 MG TABLET PO PRN ×3 (05:30→16:08)
[2017-12-21] MEDS ORDERED: MAGNESIUM SULFATE 1 GM in SODIUM CHLORIDE 0.9% 50 ML IV ONE (08:05)
[2017-12-21] MEDS: MAGNESIUM OXIDE 400 MG TABLET PO SCH (08:08)
[2017-12-21] MEDS: FAMOTIDINE 20 MG TABLET PO SCH ×2 (08:08→21:12)
[2017-12-21] MEDS: POTASSIUM CHLORIDE 20 MEQ TABLET PO SCH (08:08)
[2017-12-21] MEDS: FUROSEMIDE 20 MG TABLET PO SCH (08:08)
[2017-12-21] MEDS: POLYETHYLENE GLYCOL 3350 17 GM PACKET PO SCH (08:32)
[2017-12-21] MEDS: INSULIN ASPART 300 UNIT/3 ML PEN SUBQ SCH ×4 (08:33→21:13)
[2017-12-21] MEDS ORDERED: ENOXAPARIN 40 MG/0.4 ML SYRINGE SUBQ SCH (09:00)
[2017-12-21] MEDS ORDERED: FUROSEMIDE 20 MG TABLET PO SCH (09:00)
[2017-12-21] MEDS ORDERED: cefTRIAXone 1 GM VIAL IVP SCH (09:00)
[2017-12-21 11:03] LABS: HGB - HEMOGLOBIN 10.3 g/dL (12.0-16.0); MEAN CORPUSCULAR HEMOGLOBIN 34.1 pg (27.0-31.0); MEAN CORPUSCULAR HGB CONC 33.6 g/dL (32.0-36.0); MEAN CORPUSCULAR VOLUME 101.5 fL (81.0-99.0); MEAN PLATELET VOLUME 8.7 fL (7.9-10.8); RED BLOOD COUNT 3.04 10^6/uL (4.20-5.40); RED CELL DISTRIBUTION WIDTH 19.5 % (12.0-15.0); WHITE BLOOD COUNT 2.7 x10^3/uL (4.8-10.8)
[2017-12-21] MEDS: cefTRIAXone 1 GM in SODIUM CHLORIDE 0.9% MINIBAG 100 ML IV SCH (13:50)
[2017-12-21] MEDS: ZINC OXIDE 20% OINT 28.35 GM TUBE TOP PRN (15:33)
--- NOTE | 2017-12-21 15:35 | PROVIDER PROGRESS NOTE ---
Subjective - Prog Note Date Prog Note Date: 12/21/17 - Subjective Pt reports feeling: Improved Subjective: pt feel breathing is slight better than yesterday. pt denies chest pain, fever, or chill. Current Medications - Current Medications Current Medications: Active Medications Acetaminophen (Tylenol) 650 mg PO Q4HR PRN PRN Reason: Pain 1 to 4 Last Admin: 12/21/17 16:08 Dose: 650 mg Albuterol () 2.5 mg INH RTQ4H PRN PRN Reason: Wheezing Albuterol/Ipratropium (Duoneb) 3 ml INH RTQ4H PRN PRN Reason: Wheezing Diphenoxylate HCl/Atropine (Lomotil) 1 tab PO BID PRN PRN Reason: Diarrhea Famotidine (Pepcid) 20 mg PO BID [facility] Last Admin: 12/21/17 08:08 Dose: 20 mg Furosemide (Lasix) 40 mg PO DAILY [facility] Last Admin: 12/21/17 08:08 Dose: 40 mg Gabapentin (Neurontin) 600 mg PO TID [facility] Ceftriaxone Sodium 1 gm/ (Sodium Chloride) 100 mls @ 200 mls/hr IV Q24H [facility] Last Infusion: 12/21/17 14:10 Dose: Infused Heparin Sodium/Dextrose () 25,000 unit in 500 mls @ 26.1 mls/hr IV .[id number] [facility]; Protocol Last Titration: 12/21/17 12:00 Dose: 16 unit/kg/hr, 27.84 mls/hr Insulin Aspart (Novolog) 1 - 5 unit SUBQ 0800,1200,1700,2100 [facility]; Protocol Last Admin: 12/21/17 16:57 Dose: Not Given Levothyroxine Sodium (Synthroid) 125 mcg PO QDAC [facility] Levothyroxine Sodium (Synthroid) 25 mcg PO QDAC [facility] Magnesium Oxide (Mag Ox) 400 mg PO DAILYWM [facility] Last Admin: 12/21/17 08:08 Dose: 400 mg Multi-Ingredient Ointment (Zinc Oxide) 1 applic TOP PRN PRN PRN Reason: Skin Care Last Admin: 12/21/17 15:33 Dose: 1 applic Ondansetron HCl (Zofran Inj) 4 mg IVP Q6HR PRN PRN Reason: Nausea / Vomiting Oxycodone HCl (Roxicodone) 10 mg PO BID PRN PRN Reason: Severe Pain Polyethylene Glycol (Miralax) 17 gm PO DAILY [facility] Last Admin: 12/21/17 08:32 Dose: Not Given Potassium Chloride (K-Dur) 20 meq PO DAILYWM [facility] Last Admin: 12/21/17 08:08 Dose: 20 meq Primidone (Mysoline) 500 mg PO DAILY ANNCY Primidone (Mysoline) 300 mg PO 1200 NANCY Primidone (Mysoline) 200 mg PO QPM [facility] Sodium Chloride (Normal Saline Flush 0.9%) 10 ml IVP PRN PRN PRN Reason: NEEDED PER PROVIDER ORDERS Last Admin: 12/21/17 05:24 Dose: 10 ml Sodium Chloride (Normal Saline Flush 0.9%) 10 ml IVP 0100,0900,1700 [facility] Last Admin: 12/21/17 16:59 Dose: 10 ml Zinc Oxide (Desitin) 113 gm TOP PRN PRN PRN Reason: Skin Care Zolpidem Tartrate (Ambien) 10 mg PO QPM PRN PRN Reason: Insomnia Cholecalciferol (Vitamin D3) [Vitamin D] 2,000 unit PO DAILY 10/11/12 Clobetasol 0.05% Oint [Temovate] 1 applic TP DAILY PRN 10/11/12 Estrogens, Conjugated [Premarin] 0.3 mg PO HS 10/11/12 Eszopiclone [Lunesta] 3 mg PO QPM PRN 10/11/12 Gabapentin [Neurontin] 600 mg PO TID 10/11/12 Multivitamin [Multivitamins] 1 each PO DAILY 10/11/12 Primidone 100 mg PO TID 10/11/12 Propranolol [Inderal] 80 mg PO QID 10/11/12 Diphenoxylate HCl/Atropine [Diphenoxylate-Atrop 2.5-0.025] 1 tab PO BID PRN 12/20/17 Omeprazole 40 mg PO BIDAC 12/20/17 Sertraline HCl 100 mg PO DAILY 12/20/17 Beclomethasone Dipropionate [Beconase Aq] 2 spray NS DAILY 12/21/17 Levothyroxine Sodium 150 mcg PO DAILY 12/21/17 Nitrofurantoin [Macrobid] 100 mg PO BID PRN 12/21/17 Oxycodone HCl/Acetaminophen [Oxycodone-Acetaminophen 10-325] 1 tab PO BID PRN 12/21/17 tiZANidine [Zanaflex] 4 mg PO DAILY PRN 12/21/17 Objective - Vital Signs/Intake & Output Reviewed Vital Signs: Yes Vital Signs: Vital Signs x48h Temp Pulse Resp BP Pulse Ox 12/21/17 08:00 36.8 C 78 17 100/78 96 Intake & Output: Intake & Output 12/18/17 12/19/17 12/20/17 12/21/17 23:59 23:59 23:59 23:59 Intake Total 100 755.37 Output Total 2280 Balance 100 -1524.63 - Objective General Appearance: positive: No acute distress, Alert. negative: Lethargic Eyes Bilateral: positive: Normal inspection, PERRL, No lid inflammation, Conjunctivae nml ENT: positive: ENT inspection nml, Pharynx nml, No signs of dehydration. negative: Purulent nasal drainage, Pharyngeal erythema, Oral lesions Neck: positive: Nml inspection, Thyroid nml, No JVD, Trachea midline. negative: Thyromegaly, Lymphadenopathy (R), Lymphadenopathy (L), Stiff neck, Carotid bruit, Swelling/bruising, Tracheal deviation Respiratory: positive: Chest non-tender, No respiratory distress. negative: Wheezes, Rales, Rhonchi Cardiovascular: positive: Regular rate & rhythm, No murmur, No gallop. negative: Irregularly irregular, Extrasystoles, Tachycardia, Bradycardia, JVD present, Systolic murmur, Diastolic murmur Peripheral Pulses: 2+ Radial (R), 2+ Radial (L), 2+ Dorsalis pedis (R), 2+ Dorsalis pedis (L) Abdomen: positive: Non-tender, No organomegaly, Nml bowel sounds, No distention. negative: Tenderness, Guarding, Rebound Back: positive: Nml inspection. negative: CVA tenderness (R), CVA tenderness (L) Skin: positive: Color nml, No rash, Warm, Dry. negative: Cyanosis, Diaphoresis, Pallor Extremities: positive: Non-tender, Full ROM, Nml appearance. negative: Calf tenderness, Joint swelling, Brannon's sign/cords Neurologic/Psychiatric: positive: Oriented x3, Sensation nml, Mood/affect nml. negative: Weakness, Sensory loss, Facial droop, Slurred/abnml speech, Depressed mood/affect - Lab Results Fish Bones: 12/21/17 10:57 12/21/17 03:15 Other Labs: Lab Results x24hrs 12/21/17 12/21/17 12/21/17 Range/Units 10:57 10:57 05:00 WBC 2.7 L (4.8-10.8) x10^3/uL RBC 3.04 L (4.20-5.40) 10^6/uL Hgb 10.3 L (12.0-16.0) g/dL Hct 30.8 L (37.0-47.0) % MCV 101.5 H (81.0-99.0) fL MCH 34.1 H (27.0-31.0) pg MCHC 33.6 (32.0-36.0) g/dL RDW 19.5 H (12.0-15.0) % Plt Count 150 (130-450) 10^3/uL MPV 8.7 (7.9-10.8) fL Neut # (Auto) (1.5-6.6) 10^3/uL Lymph # (Auto) (1.5-3.5) 10^3/uL [place] # (Auto) (0.0-1.0) 10^3/uL Eos # (Auto) (0.0-0.7) 10^3/uL Baso # (Auto) (0.0-0.1) 10^3/uL Absolute Nucleated RBC x10^3/uL Nucleated RBC % /100WBC D-Dimer (200.0-255.0) ng/mL Anti-Xa Level 0.0 0.4 ( - 0.7) U/mL Sodium (135-145) mmol/L Potassium (3.5-5.0) mmol/L Chloride (101-111) mmol/L Carbon Dioxide (21-32) mmol/L Anion Gap (6-13) BUN (6-20) mg/dL Creatinine (0.4-1.0) mg/dL Estimated GFR (MDRD) (>89) Glucose (70-100) mg/dL Glycated Hemoglobin (4.6-6.2) % Estim Average Glucose (70-100) Calcium (8.5-10.3) mg/dL Magnesium (1.7-2.8) mg/dL Total Bilirubin (0.2-1.0) mg/dL AST (10-42) IU/L ALT (10-60) IU/L Alkaline Phosphatase (42-121) IU/L Troponin I (<0.49) ng/mL Total Protein (6.7-8.2) g/dL Albumin (3.2-5.5) g/dL Globulin (2.1-4.2) g/dL Albumin/Globulin Ratio (1.0-2.2) 12/21/17 12/21/17 12/21/17 Range/Units 05:00 03:15 03:15 WBC (4.8-10.8) x10^3/uL RBC (4.20-5.40) 10^6/uL Hgb (12.0-16.0) g/dL Hct (37.0-47.0) % MCV (81.0-99.0) fL MCH (27.0-31.0) pg MCHC (32.0-36.0) g/dL RDW (12.0-15.0) % Plt Count (130-450) 10^3/uL MPV (7.9-10.8) fL Neut # (Auto) (1.5-6.6) 10^3/uL Lymph # (Auto) (1.5-3.5) 10^3/uL [place] # (Auto) (0.0-1.0) 10^3/uL Eos # (Auto) (0.0-0.7) 10^3/uL Baso # (Auto) (0.0-0.1) 10^3/uL Absolute Nucleated RBC x10^3/uL Nucleated RBC % /100WBC D-Dimer (200.0-255.0) ng/mL Anti-Xa Level 1.0 H ( - 0.7) U/mL Sodium 137 (135-145) mmol/L Potassium 3.3 L (3.5-5.0) mmol/L Chloride 100 L (101-111) mmol/L Carbon Dioxide 27 (21-32) mmol/L Anion Gap 10.0 (6-13) BUN 15 (6-20) mg/dL Creatinine 0.8 (0.4-1.0) mg/dL Estimated GFR (MDRD) 69 L (>89) Glucose 157 H (70-100) mg/dL Glycated Hemoglobin (4.6-6.2) % Estim Average Glucose (70-100) Calcium 7.7 L (8.5-10.3) mg/dL Magnesium 1.6 L (1.7-2.8) mg/dL Total Bilirubin 0.6 (0.2-1.0) mg/dL AST 18 (10-42) IU/L ALT 12 (10-60) IU/L Alkaline Phosphatase 102 (42-121) IU/L Troponin I 0.29 (<0.49) ng/mL Total Protein 5.8 L (6.7-8.2) g/dL Albumin 2.7 L (3.2-5.5) g/dL Globulin 3.1 (2.1-4.2) g/dL Albumin/Globulin Ratio 0.9 L (1.0-2.2) 12/21/17 12/20/17 12/20/17 Range/Units 03:15 23:50 21:12 WBC 3.0 L 2.9 L (4.8-10.8) x10^3/uL RBC 2.85 L 2.95 L (4.20-5.40) 10^6/uL Hgb 9.8 L 9.8 L (12.0-16.0) g/dL Hct 29.3 L 30.0 L (37.0-47.0) % MCV 102.8 H 101.8 H (81.0-99.0) fL MCH 34.2 H 33.4 H (27.0-31.0) pg MCHC 33.3 32.8 (32.0-36.0) g/dL RDW 19.8 H 19.3 H (12.0-15.0) % Plt Count 139 142 (130-450) 10^3/uL MPV 8.8 8.7 (7.9-10.8) fL Neut # (Auto) 1.9 (1.5-6.6) 10^3/uL Lymph # (Auto) 0.5 L (1.5-3.5) 10^3/uL [place] # (Auto) 0.3 (0.0-1.0) 10^3/uL Eos # (Auto) 0.2 (0.0-0.7) 10^3/uL Baso # (Auto) 0.1 (0.0-0.1) 10^3/uL Absolute Nucleated RBC 0.00 x10^3/uL Nucleated RBC % 0.2 /100WBC D-Dimer (200.0-255.0) ng/mL Anti-Xa Level ( - 0.7) U/mL Sodium (135-145) mmol/L Potassium (3.5-5.0) mmol/L Chloride (101-111) mmol/L Carbon Dioxide (21-32) mmol/L Anion Gap (6-13) BUN (6-20) mg/dL Creatinine (0.4-1.0) mg/dL Estimated GFR (MDRD) (>89) Glucose (70-100) mg/dL Glycated Hemoglobin (4.6-6.2) % Estim Average Glucose (70-100) Calcium (8.5-10.3) mg/dL Magnesium (1.7-2.8) mg/dL Total Bilirubin (0.2-1.0) mg/dL AST (10-42) IU/L ALT (10-60) IU/L Alkaline Phosphatase (42-121) IU/L Troponin I 0.37 (<0.49) ng/mL Total Protein (6.7-8.2) g/dL Albumin (3.2-5.5) g/dL Globulin (2.1-4.2) g/dL Albumin/Globulin Ratio (1.0-2.2) 12/20/17 12/20/17 12/20/17 Range/Units 21:12 21:12 16:25 WBC (4.8-10.8) x10^3/uL RBC (4.20-5.40) 10^6/uL Hgb (12.0-16.0) g/dL Hct (37.0-47.0) % MCV (81.0-99.0) fL MCH (27.0-31.0) pg MCHC (32.0-36.0) g/dL RDW (12.0-15.0) % Plt Count (130-450) 10^3/uL MPV (7.9-10.8) fL Neut # (Auto) (1.5-6.6) 10^3/uL Lymph # (Auto) (1.5-3.5) 10^3/uL [place] # (Auto) (0.0-1.0) 10^3/uL Eos # (Auto) (0.0-0.7) 10^3/uL Baso # (Auto) (0.0-0.1) 10^3/uL Absolute Nucleated RBC x10^3/uL Nucleated RBC % /100WBC D-Dimer (200.0-255.0) ng/mL Anti-Xa Level 0.0 ( - 0.7) U/mL Sodium (135-145) mmol/L Potassium (3.5-5.0) mmol/L Chloride (101-111) mmol/L Carbon Dioxide (21-32) mmol/L Anion Gap (6-13) BUN (6-20) mg/dL Creatinine (0.4-1.0) mg/dL Estimated GFR (MDRD) (>89) Glucose (70-100) mg/dL Glycated Hemoglobin 6.4 H (4.6-6.2) % Estim Average Glucose 137 H (70-100) Calcium (8.5-10.3) mg/dL Magnesium (1.7-2.8) mg/dL Total Bilirubin (0.2-1.0) mg/dL AST (10-42) IU/L ALT (10-60) IU/L Alkaline Phosphatase (42-121) IU/L Troponin I 0.44 (<0.49) ng/mL Total Protein (6.7-8.2) g/dL Albumin (3.2-5.5) g/dL Globulin (2.1-4.2) g/dL Albumin/Globulin Ratio (1.0-2.2) 12/20/17 Range/Units 16:25 WBC (4.8-10.8) x10^3/uL RBC (4.20-5.40) 10^6/uL Hgb (12.0-16.0) g/dL Hct (37.0-47.0) % MCV (81.0-99.0) fL MCH (27.0-31.0) pg MCHC (32.0-36.0) g/dL RDW (12.0-15.0) % Plt Count (130-450) 10^3/uL MPV (7.9-10.8) fL Neut # (Auto) (1.5-6.6) 10^3/uL Lymph # (Auto) (1.5-3.5) 10^3/uL [place] # (Auto) (0.0-1.0) 10^3/uL Eos # (Auto) (0.0-0.7) 10^3/uL Baso # (Auto) (0.0-0.1) 10^3/uL Absolute Nucleated RBC x10^3/uL Nucleated RBC % /100WBC D-Dimer > 1050.0 H (200.0-255.0) ng/mL Anti-Xa Level ( - 0.7) U/mL Sodium (135-145) mmol/L Potassium (3.5-5.0) mmol/L Chloride (101-111) mmol/L Carbon Dioxide (21-32) mmol/L Anion Gap (6-13) BUN (6-20) mg/dL Creatinine (0.4-1.0) mg/dL Estimated GFR (MDRD) (>89) Glucose (70-100) mg/dL Glycated Hemoglobin (4.6-6.2) % Estim Average Glucose (70-100) Calcium (8.5-10.3) mg/dL Magnesium (1.7-2.8) mg/dL Total Bilirubin (0.2-1.0) mg/dL AST (10-42) IU/L ALT (10-60) IU/L Alkaline Phosphatase (42-121) IU/L Troponin I (<0.49) ng/mL Total Protein (6.7-8.2) g/dL Albumin (3.2-5.5) g/dL Globulin (2.1-4.2) g/dL Albumin/Globulin Ratio (1.0-2.2) ABX Reporting Has patient been on IV antibiotics over the past 48 hours?: No Assessment/Plan - Problem List (1) Pulmonary embolism Impression: 12/21 pt feel slight better for her breathing. continue heparin IV and follow up protocol continue tele and monitor Moderate to large central PE, pt present significantly SOB, followup recommendation: Heparin IV and heparin protocol tele and vital monitor (2) Shortness of breath Conclusion/Plan: 12/21 improved, continue heparin IV and protocol It appears caused by PE treat with Heparin PRN with INH treatment O2 supplement as needed (3) Elevated troponin Conclusion/Plan: 12/21 stable, denies chest pain, ECHO reveals unremarkable. it seems from large PE stain on right ventricle. continue on ICU monitor, continue tele, vital it appears from strain from moderate to large to the right ventricle, per CTA analysis. pt denies chest pain. EKG is pending will continue serial troponin tele and vital monitor pt is on Heparin and protocol (4) Pancytopenia Conclusion/Plan: stable, no fever, or chill, follow up Dr. Sharma as out-pt WBC 2.9, RBC 3. it appears from her MM advise pt followup her oncologist as out-pt (5) DM2 (diabetes mellitus, type 2) Conclusion/Plan: slide scale, ACHS hypoglycemia protocol (6) UTI (urinary tract infection) Conclusion/Plan: UA reveals UTI, Rocephin and follow up UA culture
[2017-12-21] MEDS ORDERED: ZOLPIDEM 5 MG TABLET PO PRN (16:27)
[2017-12-21] MEDS: HEPARIN 25000UNITS/500ML (D5W) 25,000 UNIT/500 ML BAG IV SCH (18:00)
[2017-12-21] MEDS: DIPHENOX/ATROPINE 2.5/0.025 MG TABLET PO PRN ×2 (18:16→21:12)
[2017-12-21] MEDS: PRIMIDONE 50 MG TABLET PO SCH (21:13)
[2017-12-21] MEDS: GABAPENTIN 300 MG CAPSULE PO SCH (21:13)
[2017-12-22] MEDS: SODIUM CHLORIDE FLUSH 0.9% 10 ML SYRINGE IVP SCH ×3 (01:40→17:02)
[2017-12-22] MEDS ORDERED: HEPARIN 5,000 UNIT/ML VIAL IVP ONE (03:05)
[2017-12-22 05:14] LABS: BASOPHILS % (AUTO) 2.5 %; EOSINOPHILS % (AUTO) 6.5 %; HGB - HEMOGLOBIN 9.7 g/dL (12.0-16.0); MEAN CORPUSCULAR HEMOGLOBIN 33.6 pg (27.0-31.0); MEAN CORPUSCULAR VOLUME 101.9 fL (81.0-99.0); MEAN PLATELET VOLUME 9.2 fL (7.9-10.8); MONOCYTES % (AUTO) 9.9 %; NEUTROPHILS % (AUTO) 66.1 %; PLT - PLATELET COUNT 132 10^3/uL (130-450); RED CELL DISTRIBUTION WIDTH 19.7 % (12.0-15.0); WHITE BLOOD COUNT 2.5 x10^3/uL (4.8-10.8)
[2017-12-22 05:21] LABS: ALBUMIN 2.6 g/dL (3.2-5.5); ALBUMIN/GLOBULIN RATIO 0.9 (1.0-2.2); BILIRUBIN,TOTAL 0.9 mg/dL (0.2-1.0); CALCIUM 7.6 mg/dL (8.5-10.3); CREATININE 0.9 mg/dL (0.4-1.0); TOTAL PROTEIN 5.4 g/dL (6.7-8.2)
[2017-12-22 05:24] LABS: ABNORMAL LYMPHS % (MANUAL) 0 %
[2017-12-22 05:50] LABS: BAND NEUTROPHILS % (MANUAL) 8 %; DIFFERENTIAL COMMENT MANUAL DIFFERENTIAL; EOSINOPHILS # (MANUAL) 0.1 10^3/uL (0-0.7); LYMPHOCYTES # (MANUAL) 0.4 10^3/uL (1.5-3.5); LYMPHOCYTES % (MANUAL) 14 %; MONOCYTES # (MANUAL) 0.2 10^3/uL (0.0-1.0); NEUTROPHILS # (MANUAL) 1.9 10^3/uL (1.5-6.6); NEUTROPHILS % (MANUAL) 66 %; PLATELET ESTIMATE, MANUAL NORMAL (130-450,000) (NORMAL)
[2017-12-22] MEDS: GABAPENTIN 300 MG CAPSULE PO SCH ×3 (06:32→21:14)
[2017-12-22] MEDS: LEVOTHYROXINE 125 MCG TABLET PO SCH (06:33)
[2017-12-22] MEDS: ACETAMINOPHEN 325 MG TABLET PO PRN ×3 (06:33→22:58)
[2017-12-22] MEDS: LEVOTHYROXINE 25 MCG TABLET PO SCH (06:33)
[2017-12-22] MEDS ORDERED: POTASSIUM CHLORIDE 20 MEQ TABLET PO ONE (08:15)
[2017-12-22] MEDS: INSULIN ASPART 300 UNIT/3 ML PEN SUBQ SCH ×4 (08:32→21:14)
[2017-12-22] MEDS: DIPHENOX/ATROPINE 2.5/0.025 MG TABLET PO PRN (08:34)
[2017-12-22] MEDS: PRIMIDONE 50 MG TABLET PO SCH ×3 (08:34→21:14)
[2017-12-22] MEDS: FAMOTIDINE 20 MG TABLET PO SCH ×2 (08:35→21:13)
[2017-12-22] MEDS: POTASSIUM CHLORIDE 20 MEQ TABLET PO SCH (08:35)
[2017-12-22] MEDS: FUROSEMIDE 20 MG TABLET PO SCH (08:35)
[2017-12-22] MEDS: MAGNESIUM OXIDE 400 MG TABLET PO SCH (08:35)
[2017-12-22] MEDS: POLYETHYLENE GLYCOL 3350 17 GM PACKET PO SCH (08:36)
[2017-12-22] MEDS ORDERED: LEVOTHYROXINE SODIUM 150 MCG PO SCH (09:00)
[2017-12-22] MEDS: ZINC OXIDE 20% OINT 28.35 GM TUBE TOP PRN (11:41)
[2017-12-22] MEDS: cefTRIAXone 1 GM in SODIUM CHLORIDE 0.9% MINIBAG 100 ML IV SCH (14:10)
--- NOTE | 2017-12-22 15:34 | PROVIDER PROGRESS NOTE ---
Subjective - Prog Note Date Prog Note Date: 12/22/17 - Subjective Pt reports feeling: Improved Subjective: pt report she feel breath is better. She denies chest pain, fever, chill, cough. Because IV pump machine did not work on yesterday, pt did not get Heparin on yesterday. Machine is working today. Current Medications - Current Medications Current Medications: Active Medications Acetaminophen (Tylenol) 650 mg PO Q4HR PRN PRN Reason: Pain 1 to 4 Last Admin: 12/22/17 12:08 Dose: 650 mg Albuterol () 2.5 mg INH RTQ4H PRN PRN Reason: Wheezing Albuterol/Ipratropium (Duoneb) 3 ml INH RTQ4H PRN PRN Reason: Wheezing Diphenoxylate HCl/Atropine (Lomotil) 1 tab PO BID PRN PRN Reason: Diarrhea Last Admin: 12/22/17 08:34 Dose: 1 tab Famotidine (Pepcid) 20 mg PO BID [facility] Last Admin: 12/22/17 08:35 Dose: 20 mg Furosemide (Lasix) 40 mg PO DAILY [facility] Last Admin: 12/22/17 08:35 Dose: 40 mg Gabapentin (Neurontin) 600 mg PO TID [facility] Last Admin: 12/22/17 14:12 Dose: 600 mg Ceftriaxone Sodium 1 gm/ (Sodium Chloride) 100 mls @ 200 mls/hr IV Q24H [facility] Last Infusion: 12/22/17 14:40 Dose: Infused Heparin Sodium/Dextrose () 25,000 unit in 500 mls @ 26.1 mls/hr IV .[id number] [facility]; Protocol Last Titration: 12/22/17 06:14 Dose: 12 unit/kg/hr, 20.88 mls/hr Insulin Aspart (Novolog) 1 - 5 unit SUBQ 0800,1200,1700,2100 [facility]; Protocol Last Admin: 12/22/17 11:46 Dose: 1 unit Levothyroxine Sodium (Synthroid) 125 mcg PO QDAC [facility] Last Admin: 12/22/17 06:33 Dose: 125 mcg Levothyroxine Sodium (Synthroid) 25 mcg PO QDAC [facility] Last Admin: 12/22/17 06:33 Dose: 25 mcg Magnesium Oxide (Mag Ox) 400 mg PO DAILYWM [facility] Last Admin: 11/02/18 08:35 Dose: 400 mg Multi-Ingredient Ointment (Zinc Oxide) 1 applic TOP PRN PRN PRN Reason: Skin Care Last Admin: 12/22/17 11:41 Dose: 1 applic Ondansetron HCl (Zofran Inj) 4 mg IVP Q6HR PRN PRN Reason: Nausea / Vomiting Oxycodone HCl (Roxicodone) 10 mg PO BID PRN PRN Reason: Severe Pain Polyethylene Glycol (Miralax) 17 gm PO DAILY [facility] Last Admin: 12/22/17 08:36 Dose: Not Given Potassium Chloride (K-Dur) 20 meq PO DAILYWM [facility] Last Admin: 12/22/17 08:35 Dose: 20 meq Primidone (Mysoline) 500 mg PO DAILY [facility] Last Admin: 12/22/17 08:34 Dose: 500 mg Primidone (Mysoline) 300 mg PO 1200 [facility] Last Admin: 12/22/17 12:07 Dose: 300 mg Primidone (Mysoline) 200 mg PO QPM [facility] Last Admin: 12/21/17 21:13 Dose: 200 mg Sodium Chloride (Normal Saline Flush 0.9%) 10 ml IVP PRN PRN PRN Reason: NEEDED PER PROVIDER ORDERS Last Admin: 12/21/17 05:24 Dose: 10 ml Sodium Chloride (Normal Saline Flush 0.9%) 10 ml IVP 0100,0900,1700 [facility] Last Admin: 12/22/17 08:38 Dose: 10 ml Zinc Oxide (Desitin) 113 gm TOP PRN PRN PRN Reason: Skin Care Zolpidem Tartrate (Ambien) 10 mg PO QPM PRN PRN Reason: Insomnia Cholecalciferol (Vitamin D3) [Vitamin D] 2,000 unit PO DAILY 10/11/12 Clobetasol 0.05% Oint [Temovate] 1 applic TP DAILY PRN 10/11/12 Estrogens, Conjugated [Premarin] 0.3 mg PO HS 10/11/12 Eszopiclone [Lunesta] 3 mg PO QPM PRN 10/11/12 Gabapentin [Neurontin] 600 mg PO TID 10/11/12 Multivitamin [Multivitamins] 1 each PO DAILY 10/11/12 Primidone 100 mg PO TID 10/11/12 Propranolol [Inderal] 80 mg PO QID 10/11/12 Diphenoxylate HCl/Atropine [Diphenoxylate-Atrop 2.5-0.025] 1 tab PO BID PRN 12/20/17 Omeprazole 40 mg PO BIDAC 12/20/17 Sertraline HCl 100 mg PO DAILY 12/20/17 Beclomethasone Dipropionate [Beconase Aq] 2 spray NS DAILY 12/21/17 Levothyroxine Sodium 150 mcg PO DAILY 12/21/17 Nitrofurantoin [Macrobid] 100 mg PO BID PRN 12/21/17 Oxycodone HCl/Acetaminophen [Oxycodone-Acetaminophen 10-325] 1 tab PO BID PRN 12/21/17 tiZANidine [Zanaflex] 4 mg PO DAILY PRN 12/21/17 Objective - Vital Signs/Intake & Output Reviewed Vital Signs: Yes Vital Signs: Vital Signs x48h Temp Pulse Pulse Resp BP Pulse Ox 12/22/17 08:07 89 21 12/22/17 07:51 37.1 C 86 24 115/54 L 96 Intake & Output: Intake & Output 12/19/17 12/20/17 12/21/17 12/22/17 23:59 23:59 23:59 23:59 Intake Total 100 8678.289 5420.072 Output Total 2485 685 Balance 100 -1380.448 570.072 - Objective General Appearance: positive: No acute distress, Alert. negative: Lethargic Eyes Bilateral: positive: Normal inspection, PERRL, No lid inflammation, Conjunctivae nml ENT: positive: ENT inspection nml, Pharynx nml, No signs of dehydration. negative: Purulent nasal drainage, Pharyngeal erythema, Oral lesions Neck: positive: Nml inspection, Thyroid nml, No JVD, Trachea midline. negative: Thyromegaly, Lymphadenopathy (R), Lymphadenopathy (L), Stiff neck, Swelling/bruising, Tracheal deviation Respiratory: positive: Chest non-tender, No respiratory distress, Breath sounds nml. negative: Wheezes, Rales, Rhonchi Cardiovascular: positive: Regular rate & rhythm, No murmur, No gallop. negative: Irregularly irregular, Extrasystoles, Tachycardia, Bradycardia, JVD present, Systolic murmur, Diastolic murmur Peripheral Pulses: 2+ Radial (R), 2+ Radial (L), 2+ Dorsalis pedis (R), 2+ Dorsalis pedis (L) Abdomen: positive: Non-tender, No organomegaly, Nml bowel sounds, No distention. negative: Tenderness, Guarding, Rebound Back: positive: Nml inspection. negative: CVA tenderness (R), CVA tenderness ( L) Skin: positive: Color nml, No rash, Warm, Dry. negative: Cyanosis, Diaphoresis, Pallor Extremities: positive: Non-tender, Full ROM, Nml appearance. negative: Calf tenderness, Joint swelling, Brannon's sign/cords Neurologic/Psychiatric: positive: Oriented x3, Motor nml, Sensation nml. negative: Weakness, Sensory loss, Facial droop, Slurred/abnml speech, Depressed mood/affect - Lab Results Fish Bones: 12/22/17 04:45 12/22/17 04:45 Other Labs: Lab Results x24hrs 12/22/17 12/22/17 12/22/17 Range/Units 12:20 11:40 07:58 WBC (4.8-10.8) x10^3/uL RBC (4.20-5.40) 10^6/uL Hgb (12.0-16.0) g/dL Hct (37.0-47.0) % MCV (81.0-99.0) fL MCH (27.0-31.0) pg MCHC (32.0-36.0) g/dL RDW (12.0-15.0) % Plt Count (130-450) 10^3/uL MPV (7.9-10.8) fL Neut # (Auto) Lymph # (Auto) [place] # (Auto) Eos # (Auto) Baso # (Auto) Absolute Nucleated RBC Total Counted Band Neuts % (Manual) (0 - 10) % Abnorm Lymph % (Manual) % Nucleated RBC % Neutrophils # (Manual) (1.5-6.6) 10^3/uL Lymphocytes # (Manual) (1.5-3.5) 10^3/uL Monocytes # (Manual) (0.0-1.0) 10^3/uL Eosinophils # (Manual) (0-0.7) 10^3/uL Basophils # (Manual) (0-0.1) 10^3/uL Nucleated RBCs % Differential Comment Platelet Estimate (NORMAL) RBC Morph Micro Appear (NORMAL) Anti-Xa Level 0.5 ( - 0.7) U/mL Sodium (135-145) mmol/L Potassium (3.5-5.0) mmol/L Chloride (101-111) mmol/L Carbon Dioxide (21-32) mmol/L Anion Gap (6-13) BUN (6-20) mg/dL Creatinine (0.4-1.0) mg/dL Estimated GFR (MDRD) (>89) Glucose (70-100) mg/dL POC Whole Bld Glucose 145 H 157 H (70 - 100) mg/dL Calcium (8.5-10.3) mg/dL Total Bilirubin (0.2-1.0) mg/dL AST (10-42) IU/L ALT (10-60) IU/L Alkaline Phosphatase (42-121) IU/L B-Natriuretic Peptide (5-100) pg/mL Total Protein (6.7-8.2) g/dL Albumin (3.2-5.5) g/dL Globulin (2.1-4.2) g/dL Albumin/Globulin Ratio (1.0-2.2) TSH (0.34-5.60) uIU/mL 12/22/17 12/22/17 12/22/17 Range/Units 04:45 04:45 04:45 WBC (4.8-10.8) x10^3/uL RBC (4.20-5.40) 10^6/uL Hgb (12.0-16.0) g/dL Hct (37.0-47.0) % MCV (81.0-99.0) fL MCH (27.0-31.0) pg MCHC (32.0-36.0) g/dL RDW (12.0-15.0) % Plt Count (130-450) 10^3/uL MPV (7.9-10.8) fL Neut # (Auto) Lymph # (Auto) [place] # (Auto) Eos # (Auto) Baso # (Auto) Absolute Nucleated RBC Total Counted Band Neuts % (Manual) (0 - 10) % Abnorm Lymph % (Manual) % Nucleated RBC % Neutrophils # (Manual) (1.5-6.6) 10^3/uL Lymphocytes # (Manual) (1.5-3.5) 10^3/uL Monocytes # (Manual) (0.0-1.0) 10^3/uL Eosinophils # (Manual) (0-0.7) 10^3/uL Basophils # (Manual) (0-0.1) 10^3/uL Nucleated RBCs % Differential Comment Platelet Estimate (NORMAL) RBC Morph Micro Appear (NORMAL) Anti-Xa Level ( - 0.7) U/mL Sodium 137 (135-145) mmol/L Potassium 3.4 L (3.5-5.0) mmol/L Chloride 103 (101-111) mmol/L Carbon Dioxide 27 (21-32) mmol/L Anion Gap 7.0 (6-13) BUN 12 (6-20) mg/dL Creatinine 0.9 (0.4-1.0) mg/dL Estimated GFR (MDRD) 60 L (>89) Glucose 145 H (70-100) mg/dL POC Whole Bld Glucose (70 - 100) mg/dL Calcium 7.6 L (8.5-10.3) mg/dL Total Bilirubin 0.9 (0.2-1.0) mg/dL AST 12 (10-42) IU/L ALT 12 (10-60) IU/L Alkaline Phosphatase 101 (42-121) IU/L B-Natriuretic Peptide 629 H (5-100) pg/mL Total Protein 5.4 L (6.7-8.2) g/dL Albumin 2.6 L (3.2-5.5) g/dL Globulin 2.8 (2.1-4.2) g/dL Albumin/Globulin Ratio 0.9 L (1.0-2.2) TSH 1.62 (0.34-5.60) uIU/mL 12/22/17 12/22/17 12/21/17 Range/Units 04:45 02:05 21:10 WBC 2.5 L (4.8-10.8) x10^3/uL RBC 2.90 L (4.20-5.40) 10^6/uL Hgb 9.7 L (12.0-16.0) g/dL Hct 29.5 L (37.0-47.0) % MCV 101.9 H (81.0-99.0) fL MCH 33.6 H (27.0-31.0) pg MCHC 33.0 (32.0-36.0) g/dL RDW 19.7 H (12.0-15.0) % Plt Count 132 (130-450) 10^3/uL MPV 9.2 (7.9-10.8) fL Neut # (Auto) Not Reportable Lymph # (Auto) Not Reportable [place] # (Auto) Not Reportable Eos # (Auto) Not Reportable Baso # (Auto) Not Reportable Absolute Nucleated RBC Not Reportable Total Counted 100 Band Neuts % (Manual) 8 (0 - 10) % Abnorm Lymph % (Manual) 0 % Nucleated RBC % Not Reportable Neutrophils # (Manual) 1.9 (1.5-6.6) 10^3/uL Lymphocytes # (Manual) 0.4 L (1.5-3.5) 10^3/uL Monocytes # (Manual) 0.2 (0.0-1.0) 10^3/uL Eosinophils # (Manual) 0.1 (0-0.7) 10^3/uL Basophils # (Manual) 0.0 (0-0.1) 10^3/uL Nucleated RBCs 1 % Differential Comment MANUAL DIFFERENTIAL Platelet Estimate NORMAL (130-450,000) (NORMAL) RBC Morph Micro Appear 1+ HYPOCHROMASIA (NORMAL) Anti-Xa Level 0.1 ( - 0.7) U/mL Sodium (135-145) mmol/L Potassium (3.5-5.0) mmol/L Chloride (101-111) mmol/L Carbon Dioxide (21-32) mmol/L Anion Gap (6-13) BUN (6-20) mg/dL Creatinine (0.4-1.0) mg/dL Estimated GFR (MDRD) (>89) Glucose (70-100) mg/dL POC Whole Bld Glucose 140 H (70 - 100) mg/dL Calcium (8.5-10.3) mg/dL Total Bilirubin (0.2-1.0) mg/dL AST (10-42) IU/L ALT (10-60) IU/L Alkaline Phosphatase (42-121) IU/L B-Natriuretic Peptide (5-100) pg/mL Total Protein (6.7-8.2) g/dL Albumin (3.2-5.5) g/dL Globulin (2.1-4.2) g/dL Albumin/Globulin Ratio (1.0-2.2) TSH (0.34-5.60) uIU/mL 12/21/17 12/21/17 12/21/17 Range/Units 18:04 16:51 12:05 WBC (4.8-10.8) x10^3/uL RBC (4.20-5.40) 10^6/uL Hgb (12.0-16.0) g/dL Hct (37.0-47.0) % MCV (81.0-99.0) fL MCH (27.0-31.0) pg MCHC (32.0-36.0) g/dL RDW (12.0-15.0) % Plt Count (130-450) 10^3/uL MPV (7.9-10.8) fL Neut # (Auto) Lymph # (Auto) [place] # (Auto) Eos # (Auto) Baso # (Auto) Absolute Nucleated RBC Total Counted Band Neuts % (Manual) (0 - 10) % Abnorm Lymph % (Manual) % Nucleated RBC % Neutrophils # (Manual) (1.5-6.6) 10^3/uL Lymphocytes # (Manual) (1.5-3.5) 10^3/uL Monocytes # (Manual) (0.0-1.0) 10^3/uL Eosinophils # (Manual) (0-0.7) 10^3/uL Basophils # (Manual) (0-0.1) 10^3/uL Nucleated RBCs % Differential Comment Platelet Estimate (NORMAL) RBC Morph Micro Appear (NORMAL) Anti-Xa Level 0.0 ( - 0.7) U/mL Sodium (135-145) mmol/L Potassium (3.5-5.0) mmol/L Chloride (101-111) mmol/L Carbon Dioxide (21-32) mmol/L Anion Gap (6-13) BUN (6-20) mg/dL Creatinine (0.4-1.0) mg/dL Estimated GFR (MDRD) (>89) Glucose (70-100) mg/dL POC Whole Bld Glucose 126 H 154 H (70 - 100) mg/dL Calcium (8.5-10.3) mg/dL Total Bilirubin (0.2-1.0) mg/dL AST (10-42) IU/L ALT (10-60) IU/L Alkaline Phosphatase (42-121) IU/L B-Natriuretic Peptide (5-100) pg/mL Total Protein (6.7-8.2) g/dL Albumin (3.2-5.5) g/dL Globulin (2.1-4.2) g/dL Albumin/Globulin Ratio (1.0-2.2) TSH (0.34-5.60) uIU/mL 12/21/17 12/20/17 Range/Units 08:16 20:20 WBC (4.8-10.8) x10^3/uL RBC (4.20-5.40) 10^6/uL Hgb (12.0-16.0) g/dL Hct (37.0-47.0) % MCV (81.0-99.0) fL MCH (27.0-31.0) pg MCHC (32.0-36.0) g/dL RDW (12.0-15.0) % Plt Count (130-450) 10^3/uL MPV (7.9-10.8) fL Neut # (Auto) Lymph # (Auto) [place] # (Auto) Eos # (Auto) Baso # (Auto) Absolute Nucleated RBC Total Counted Band Neuts % (Manual) (0 - 10) % Abnorm Lymph % (Manual) % Nucleated RBC % Neutrophils # (Manual) (1.5-6.6) 10^3/uL Lymphocytes # (Manual) (1.5-3.5) 10^3/uL Monocytes # (Manual) (0.0-1.0) 10^3/uL Eosinophils # (Manual) (0-0.7) 10^3/uL Basophils # (Manual) (0-0.1) 10^3/uL Nucleated RBCs % Differential Comment Platelet Estimate (NORMAL) RBC Morph Micro Appear (NORMAL) Anti-Xa Level ( - 0.7) U/mL Sodium (135-145) mmol/L Potassium (3.5-5.0) mmol/L Chloride (101-111) mmol/L Carbon Dioxide (21-32) mmol/L Anion Gap (6-13) BUN (6-20) mg/dL Creatinine (0.4-1.0) mg/dL Estimated GFR (MDRD) (>89) Glucose (70-100) mg/dL POC Whole Bld Glucose 130 H 195 H (70 - 100) mg/dL Calcium (8.5-10.3) mg/dL Total Bilirubin (0.2-1.0) mg/dL AST (10-42) IU/L ALT (10-60) IU/L Alkaline Phosphatase (42-121) IU/L B-Natriuretic Peptide (5-100) pg/mL Total Protein (6.7-8.2) g/dL Albumin (3.2-5.5) g/dL Globulin (2.1-4.2) g/dL Albumin/Globulin Ratio (1.0-2.2) TSH (0.34-5.60) uIU/mL ABX Reporting Has patient been on IV antibiotics over the past 48 hours?: No Assessment/Plan - Problem List (1) Pulmonary embolism Impression: 12/22 pt took Estrogen at home without medical need as pt's daughter report. It is a high risk factor for pt to develop PE. continue heparin and follow up heparin protocol There is no swelling, redness, or any indication for DVT in pt's low extremities 12/21 pt feel slight better for her breathing. continue heparin IV and follow up protocol continue tele and monitor Moderate to large central PE, pt present significantly SOB, followup recommendation: Heparin IV and heparin protocol tele and vital monitor (2) Shortness of breath Conclusion/Plan: 12/22 better for breath, continue heparin treatment plan 12/21 improved, continue heparin IV and protocol It appears caused by PE treat with Heparin PRN with INH treatment O2 supplement as needed (3) Elevated troponin Conclusion/Plan: 12/22 no chest pain or distress 12/21 stable, denies chest pain, ECHO reveals unremarkable. it seems from large PE stain on right ventricle. continue on ICU monitor, continue tele, vital it appears from strain from moderate to large to the right ventricle, per CTA analysis. pt denies chest pain. EKG is pending will continue serial troponin tele and vital monitor pt is on Heparin and protocol (4) Pancytopenia Conclusion/Plan: 12/22 stable, continue monitor stable, no fever, or chill, follow up Dr. Sharma as out-pt WBC 2.9, RBC 3. it appears from her MM advise pt followup her oncologist as out-pt (5) DM2 (diabetes mellitus, type 2) Conclusion/Plan: slide scale, ACHS hypoglycemia protocol (6) UTI (urinary tract infection) Conclusion/Plan: UA reveals UTI, Rocephin and follow up UA culture
--- NOTE | 2017-12-22 15:42 | ADVANCE CARE PLANNING NOTE ---
Advance Care Planning - Date/Time Date: 12/22/17 Time: 13:00 - Purpose of encounter Text: advance care - Parties in attendance Parties in attendance: pt, me and nurse - Decisional capacity Decisional capacity of: pt is alert and oriented, full capability to made decision. - Subjective/Patient's story Subjective/Patient's story: pt report she recognize she can not have full code at this time medical condition, because she had large central PE - Objective/Medical story Objective/Medical Story: Multiple meyloma, large PE, DM2, UTI - Goals of Care Goals of care determinations: pt desire to switch from full code to DNR - Plan Plan: code status switch to DNR - Time Spent on Advance Care Planning Time spent on advance care plannin
[2017-12-23] MEDS: SODIUM CHLORIDE FLUSH 0.9% 10 ML SYRINGE IVP SCH ×3 (00:36→19:41)
[2017-12-23 04:47] LABS: BASOPHILS # (AUTO) 0.1 10^3/uL (0.0-0.1); EOSINOPHILS # (AUTO) 0.1 10^3/uL (0.0-0.7); EOSINOPHILS % (AUTO) 4.5 %; HGB - HEMOGLOBIN 9.5 g/dL (12.0-16.0); LYMPHOCYTES # (AUTO) 0.8 10^3/uL (1.5-3.5); LYMPHOCYTES % (AUTO) 23.9 %; MEAN CORPUSCULAR HEMOGLOBIN 33.7 pg (27.0-31.0); MEAN CORPUSCULAR HGB CONC 32.8 g/dL (32.0-36.0); MEAN CORPUSCULAR VOLUME 102.6 fL (81.0-99.0); MEAN PLATELET VOLUME 9.2 fL (7.9-10.8); MONOCYTES # (AUTO) 0.4 10^3/uL (0.0-1.0); MONOCYTES % (AUTO) 11.6 %; NEUTROPHILS # (AUTO) 1.8 10^3/uL (1.5-6.6); PLT - PLATELET COUNT 140 10^3/uL (130-450); RED BLOOD COUNT 2.82 10^6/uL (4.20-5.40); RED CELL DISTRIBUTION WIDTH 19.2 % (12.0-15.0); WHITE BLOOD COUNT 3.2 x10^3/uL (4.8-10.8)
[2017-12-23 04:53] LABS: ALBUMIN 2.4 g/dL (3.2-5.5); ALBUMIN/GLOBULIN RATIO 0.8 (1.0-2.2); BILIRUBIN,TOTAL 0.5 mg/dL (0.2-1.0); CALCIUM 7.7 mg/dL (8.5-10.3); CREATININE 0.9 mg/dL (0.4-1.0); TOTAL PROTEIN 5.4 g/dL (6.7-8.2)
[2017-12-23] MEDS: HEPARIN 25000UNITS/500ML (D5W) 25,000 UNIT/500 ML BAG IV SCH (04:55)
[2017-12-23] MEDS: GABAPENTIN 300 MG CAPSULE PO SCH ×3 (06:27→21:03)
[2017-12-23] MEDS: LEVOTHYROXINE 125 MCG TABLET PO SCH (06:28)
[2017-12-23] MEDS: LEVOTHYROXINE 25 MCG TABLET PO SCH (06:28)
[2017-12-23] MEDS: ZINC OXIDE 20% OINT 28.35 GM TUBE TOP PRN (08:20)
[2017-12-23] MEDS: INSULIN ASPART 300 UNIT/3 ML PEN SUBQ SCH ×4 (08:40→20:36)
[2017-12-23] MEDS: FAMOTIDINE 20 MG TABLET PO SCH ×2 (08:42→21:04)
[2017-12-23] MEDS: DIPHENOX/ATROPINE 2.5/0.025 MG TABLET PO PRN ×2 (08:42→21:03)
[2017-12-23] MEDS: MAGNESIUM OXIDE 400 MG TABLET PO SCH (08:42)
[2017-12-23] MEDS: POTASSIUM CHLORIDE 20 MEQ TABLET PO SCH (08:42)
[2017-12-23] MEDS ORDERED: CALCIUM GLUCONATE 1,000 MG in SODIUM CHLORIDE 0.9% 50 ML IV ONE (09:00)
[2017-12-23] MEDS: PRIMIDONE 50 MG TABLET PO SCH ×3 (09:05→21:03)
[2017-12-23] MEDS: FUROSEMIDE 20 MG TABLET PO SCH (09:05)
[2017-12-23] MEDS: POLYETHYLENE GLYCOL 3350 17 GM PACKET PO SCH (09:08)
--- NOTE | 2017-12-23 09:52 | XRAY Report ---
Reason: SOB Procedure Date: 12/23/2017 Accession Number: [id number] / [id number] Procedure: XR - Chest 1 View X-Ray CPT Code: 76502 FULL RESULT: EXAM: CHEST RADIOGRAPHY EXAM DATE: 12/23/2017 09:20 AM. CLINICAL HISTORY: Shortness of breath. COMPARISON: Chest radiograph from 12/20/2017, CT pulmonary angiogram from 12/20/2017. TECHNIQUE: 1 view. FINDINGS: Lungs/Pleura: There are mild hazy opacities throughout both lungs, not significantly changed. No dense consolidation demonstrated. No pleural effusion or pneumothorax. Mediastinum: There is prominence of the right hilum, as seen previously. This may correspond to enlarged branch of the right pulmonary artery with pulmonary embolus, seen on prior CTA. Cardiomediastinal contours otherwise within normal limits. Other: Right Port-A-Cath is present, terminating in the region of the right atrium. A duplicated SVC is present, as seen on CT. There are expansile lytic lesions of the left lateral sixth rib and right lateral seventh rib, as seen on CT. There also appears to be lucent lesions in bilateral humeri. There is osteolysis of the lateral right clavicle. IMPRESSION: 1. Prominence of the right hilum, which may correspond to enlarged branch of the right pulmonary artery, which demonstrated embolus on prior CTA. Prior CT demonstrated fairly large embolic burden with findings suggestive of right heart strain. 2. No significant change in mild hazy opacities over both lungs, corresponding to groundglass foci seen on CT. This may represent pneumonitis or perfusion abnormality related to pulmonary emboli. 3. Multiple lucent osseous lesions involving bilateral ribs and bilateral humeri, compatible with osseous metastatic disease seen on previous CT. [facility]
[2017-12-23] MEDS: ACETAMINOPHEN 325 MG TABLET PO PRN ×2 (10:05→21:03)
[2017-12-23] MEDS: oxyCODONE 5 MG TABLET PO PRN (12:10)
[2017-12-23] MEDS: cefTRIAXone 1 GM in SODIUM CHLORIDE 0.9% MINIBAG 100 ML IV SCH (14:08)
[2017-12-23] MEDS: PROPRANOLOL 40 MG TABLET PO SCH ×2 (14:51→21:03)
--- NOTE | 2017-12-23 15:41 | PROVIDER PROGRESS NOTE ---
Subjective - Prog Note Date Prog Note Date: 12/23/17 - Subjective Pt reports feeling: Improved Subjective: pt report she feel a little better breath than yesterday. She report some cough today but no fever, chill, or chest pain. Because this is moderate to large central PE without thrombolytic according to [facility] critical team recommendation, because of high risk of intracranial bleeding as pt's ago, continue three days heparin then switch to Subq lovenex. According to Update Dr. Polo Moore's article, either LMW heparin or Edoxaban is the choice for superintendent container terminal (3-6 months) treatment with malignancy pt. Pt has hx of MM. Current Medications - Current Medications Current Medications: Active Medications Acetaminophen (Tylenol) 650 mg PO Q4HR PRN PRN Reason: Pain 1 to 4 Last Admin: 12/23/17 10:05 Dose: 650 mg Albuterol () 2.5 mg INH RTQ4H PRN PRN Reason: Wheezing Albuterol/Ipratropium (Duoneb) 3 ml INH RTQ4H PRN PRN Reason: Wheezing Cholecalciferol (Vitamin D3) 2,000 unit PO DAILY [facility] Diphenoxylate HCl/Atropine (Lomotil) 1 tab PO BID PRN PRN Reason: Diarrhea Last Admin: 12/23/17 08:42 Dose: 1 tab Famotidine (Pepcid) 20 mg PO BID [facility] Last Admin: 12/23/17 08:42 Dose: 20 mg Furosemide (Lasix) 40 mg PO DAILY [facility] Last Admin: 12/23/17 09:05 Dose: 40 mg Gabapentin (Neurontin) 600 mg PO TID [facility] Last Admin: 12/23/17 14:08 Dose: 600 mg Ceftriaxone Sodium 1 gm/ (Sodium Chloride) 100 mls @ 200 mls/hr IV Q24H [facility] Last Infusion: 12/23/17 14:40 Dose: Infused Heparin Sodium/Dextrose () 25,000 unit in 500 mls @ 26.1 mls/hr IV .[id number] [facility]; Protocol Last Admin: 12/23/17 04:55 Dose: 14 unit/kg/hr, 24.36 mls/hr Insulin Aspart (Novolog) 1 - 5 unit SUBQ 0800,1200,1700,2100 [facility]; Protocol Last Admin: 12/23/17 12:05 Dose: 2 unit Levothyroxine Sodium (Synthroid) 125 mcg PO QDAC [facility] Last Admin: 12/23/17 06:28 Dose: 125 mcg Levothyroxine Sodium (Synthroid) 25 mcg PO QDAC [facility] Last Admin: 12/23/17 06:28 Dose: 25 mcg Magnesium Oxide (Mag Ox) 400 mg PO DAILYWM [facility] Last Admin: 12/23/17 08:42 Dose: 400 mg Multi-Ingredient Ointment (Zinc Oxide) 1 applic TOP PRN PRN PRN Reason: Skin Care Last Admin: 12/23/17 08:20 Dose: 1 applic Multivitamins (Theragran) 1 tab PO DAILYWM [facility] Ondansetron HCl (Zofran Inj) 4 mg IVP Q6HR PRN PRN Reason: Nausea / Vomiting Oxycodone HCl (Roxicodone) 10 mg PO BID PRN PRN Reason: Severe Pain Last Admin: 12/23/17 12:10 Dose: 10 mg Beclomethasone Dipropionate [ Beconase Aq] 2 each [place] DAILY [facility] Polyethylene Glycol (Miralax) 17 gm PO DAILY [facility] Last Admin: 12/23/17 09:08 Dose: Not Given Potassium Chloride (K-Dur) 20 meq PO DAILYWM [facility] Last Admin: 12/23/17 08:42 Dose: 20 meq Primidone (Mysoline) 500 mg PO DAILY [facility] Last Admin: 12/23/17 09:05 Dose: 500 mg Primidone (Mysoline) 300 mg PO 1200 [facility] Last Admin: 12/23/17 12:13 Dose: 300 mg Primidone (Mysoline) 200 mg PO QPM [facility] Last Admin: 12/22/17 21:14 Dose: 200 mg Propranolol HCl (Inderal) 80 mg PO 1200 [facility] Last Admin: 12/23/17 14:51 Dose: 80 mg Propranolol HCl (Inderal) 80 mg PO QPM [facility] Propranolol HCl (Inderal) 160 mg PO DAILY [facility] Sertraline HCl (Zoloft) 100 mg PO DAILY [facility] Sodium Chloride (Normal Saline Flush 0.9%) 10 ml IVP PRN PRN PRN Reason: NEEDED PER PROVIDER ORDERS Last Admin: 12/21/17 05:24 Dose: 10 ml Sodium Chloride (Normal Saline Flush 0.9%) 10 ml IVP 0100,0900,1700 [facility] Last Admin: 12/23/17 09:07 Dose: 10 ml Zinc Oxide (Desitin) 113 gm TOP PRN PRN PRN Reason: Skin Care Zolpidem Tartrate (Ambien) 10 mg PO QPM PRN PRN Reason: Insomnia Cholecalciferol (Vitamin D3) [Vitamin D] 2,000 unit PO DAILY 10/11/12 Clobetasol 0.05% Oint [Temovate] 1 applic TP DAILY PRN 10/11/12 Estrogens, Conjugated [Premarin] 0.3 mg PO HS 10/11/12 Eszopiclone [Lunesta] 3 mg PO QPM PRN 10/11/12 Gabapentin [Neurontin] 600 mg PO TID 10/11/12 Multivitamin [Multivitamins] 1 each PO DAILY 10/11/12 Primidone 100 mg PO TID 10/11/12 Propranolol [Inderal] 80 mg PO QID 10/11/12 Diphenoxylate HCl/Atropine [Diphenoxylate-Atrop 2.5-0.025] 1 tab PO BID PRN 12/20/17 Omeprazole 40 mg PO BIDAC 12/20/17 Sertraline HCl 100 mg PO DAILY 12/20/17 Beclomethasone Dipropionate [Beconase Aq] 2 spray NS DAILY 12/21/17 Levothyroxine Sodium 150 mcg PO DAILY 12/21/17 Nitrofurantoin [Macrobid] 100 mg PO BID PRN 12/21/17 Oxycodone HCl/Acetaminophen [Oxycodone-Acetaminophen 10-325] 1 tab PO BID PRN 12/21/17 tiZANidine [Zanaflex] 4 mg PO DAILY PRN 12/21/17 Objective - Vital Signs/Intake & Output Vital Signs: Vital Signs x48h Temp Pulse Pulse Resp Resp BP Pulse Ox 12/23/17 12:42 102 H 18 12/23/17 08:00 36.9 C 87 27 H 117/58 L 98 Pulse Ox 12/23/17 12:42 98 12/23/17 08:00 Intake & Output: Intake & Output 12/20/17 12/21/17 12/22/17 12/23/17 23:59 23:59 23:59 23:59 Intake Total 100 4737.505 1771.448 920 Output Total 2485 900 701 Balance 100 -1380.448 918.448 219 - Objective General Appearance: positive: No acute distress, Alert. negative: Lethargic Eyes Bilateral: positive: Normal inspection, PERRL, No lid inflammation, Conjunctivae nml ENT: positive: ENT inspection nml, Pharynx nml, No signs of dehydration. negative: Purulent nasal drainage, Pharyngeal erythema, Oral lesions Neck: positive: Nml inspection, Thyroid nml, No JVD, Trachea midline. negative: Thyromegaly, Lymphadenopathy (R), Lymphadenopathy (L), Stiff neck, Swelling/bruising, Tracheal deviation Respiratory: positive: Chest non-tender, No respiratory distress. negative: Wheezes, Rales, Rhonchi Cardiovascular: positive: Regular rate & rhythm, No murmur, No gallop. negative: Irregularly irregular, Extrasystoles, Tachycardia, Bradycardia, JVD present, Systolic murmur, Diastolic murmur Peripheral Pulses: 2+ Radial (R), 2+ Radial (L), 2+ Dorsalis pedis (R), 2+ Dorsalis pedis (L) Abdomen: positive: Non-tender, No organomegaly, Nml bowel sounds, No distention. negative: Tenderness, Guarding, Rebound Back: positive: Nml inspection. negative: CVA tenderness (R), CVA tenderness (L) Skin: positive: Color nml, No rash, Warm, Dry. negative: Cyanosis, Diaphoresis, Pallor Extremities: positive: Non-tender, Full ROM, Nml appearance. negative: Calf tenderness, Joint swelling, Brannon's sign/cords Neurologic/Psychiatric: positive: Oriented x3, Motor nml, Sensation nml, Mood/affect nml. negative: Weakness, Sensory loss, Facial droop, Slurred/abnml speech, Depressed mood/affect - Lab Results Fish Bones: 12/23/17 04:10 12/23/17 04:10 Other Labs: Lab Results x24hrs 12/23/17 12/23/17 12/23/17 Range/Units 11:45 10:55 08:00 WBC (4.8-10.8) x10^3/uL RBC (4.20-5.40) 10^6/uL Hgb (12.0-16.0) g/dL Hct (37.0-47.0) % MCV (81.0-99.0) fL MCH (27.0-31.0) pg MCHC (32.0-36.0) g/dL RDW (12.0-15.0) % Plt Count (130-450) 10^3/uL MPV (7.9-10.8) fL Neut # (Auto) (1.5-6.6) 10^3/uL Lymph # (Auto) (1.5-3.5) 10^3/uL [place] # (Auto) (0.0-1.0) 10^3/uL Eos # (Auto) (0.0-0.7) 10^3/uL Baso # (Auto) (0.0-0.1) 10^3/uL Absolute Nucleated RBC x10^3/uL Nucleated RBC % /100WBC Anti-Xa Level 0.5 ( - 0.7) U/mL Sodium (135-145) mmol/L Potassium (3.5-5.0) mmol/L Chloride (101-111) mmol/L Carbon Dioxide (21-32) mmol/L Anion Gap (6-13) BUN (6-20) mg/dL Creatinine (0.4-1.0) mg/dL Estimated GFR (MDRD) (>89) Glucose (70-100) mg/dL POC Whole Bld Glucose 185 H 142 H (70 - 100) mg/dL Calcium (8.5-10.3) mg/dL Total Bilirubin (0.2-1.0) mg/dL AST (10-42) IU/L ALT (10-60) IU/L Alkaline Phosphatase (42-121) IU/L Total Protein (6.7-8.2) g/dL Albumin (3.2-5.5) g/dL Globulin (2.1-4.2) g/dL Albumin/Globulin Ratio (1.0-2.2) 12/23/17 12/23/17 12/23/17 Range/Units 04:10 04:10 04:10 WBC 3.2 L (4.8-10.8) x10^3/uL RBC 2.82 L (4.20-5.40) 10^6/uL Hgb 9.5 L (12.0-16.0) g/dL Hct 29.0 L (37.0-47.0) % MCV 102.6 H (81.0-99.0) fL MCH 33.7 H (27.0-31.0) pg MCHC 32.8 (32.0-36.0) g/dL RDW 19.2 H (12.0-15.0) % Plt Count 140 (130-450) 10^3/uL MPV 9.2 (7.9-10.8) fL Neut # (Auto) 1.8 (1.5-6.6) 10^3/uL Lymph # (Auto) 0.8 L (1.5-3.5) 10^3/uL [place] # (Auto) 0.4 (0.0-1.0) 10^3/uL Eos # (Auto) 0.1 (0.0-0.7) 10^3/uL Baso # (Auto) 0.1 (0.0-0.1) 10^3/uL Absolute Nucleated RBC 0.01 x10^3/uL Nucleated RBC % 0.2 /100WBC Anti-Xa Level 0.2 ( - 0.7) U/mL Sodium 137 (135-145) mmol/L Potassium 3.7 (3.5-5.0) mmol/L Chloride 99 L (101-111) mmol/L Carbon Dioxide 29 (21-32) mmol/L Anion Gap 9.0 (6-13) BUN 11 (6-20) mg/dL Creatinine 0.9 (0.4-1.0) mg/dL Estimated GFR (MDRD) 60 L (>89) Glucose 135 H (70-100) mg/dL POC Whole Bld Glucose (70 - 100) mg/dL Calcium 7.7 L (8.5-10.3) mg/dL Total Bilirubin 0.5 (0.2-1.0) mg/dL AST 12 (10-42) IU/L ALT 11 (10-60) IU/L Alkaline Phosphatase 107 (42-121) IU/L Total Protein 5.4 L (6.7-8.2) g/dL Albumin 2.4 L (3.2-5.5) g/dL Globulin 3.0 (2.1-4.2) g/dL Albumin/Globulin Ratio 0.8 L (1.0-2.2) 11/02/18 11/02/18 11/02/18 Range/Units 21:12 18:46 16:59 WBC (4.8-10.8) x10^3/uL RBC (4.20-5.40) 10^6/uL Hgb (12.0-16.0) g/dL Hct (37.0-47.0) % MCV (81.0-99.0) fL MCH (27.0-31.0) pg MCHC (32.0-36.0) g/dL RDW (12.0-15.0) % Plt Count (130-450) 10^3/uL MPV (7.9-10.8) fL Neut # (Auto) (1.5-6.6) 10^3/uL Lymph # (Auto) (1.5-3.5) 10^3/uL [place] # (Auto) (0.0-1.0) 10^3/uL Eos # (Auto) (0.0-0.7) 10^3/uL Baso # (Auto) (0.0-0.1) 10^3/uL Absolute Nucleated RBC x10^3/uL Nucleated RBC % /100WBC Anti-Xa Level 0.3 ( - 0.7) U/mL Sodium (135-145) mmol/L Potassium (3.5-5.0) mmol/L Chloride (101-111) mmol/L Carbon Dioxide (21-32) mmol/L Anion Gap (6-13) BUN (6-20) mg/dL Creatinine (0.4-1.0) mg/dL Estimated GFR (MDRD) (>89) Glucose (70-100) mg/dL POC Whole Bld Glucose 156 H 116 H (70 - 100) mg/dL Calcium (8.5-10.3) mg/dL Total Bilirubin (0.2-1.0) mg/dL AST (10-42) IU/L ALT (10-60) IU/L Alkaline Phosphatase (42-121) IU/L Total Protein (6.7-8.2) g/dL Albumin (3.2-5.5) g/dL Globulin (2.1-4.2) g/dL Albumin/Globulin Ratio (1.0-2.2) ABX Reporting Has patient been on IV antibiotics over the past 48 hours?: No Assessment/Plan - Problem List (1) Pulmonary embolism Impression: (1) Pulmonary embolism Impression: 12/23 continue heparin until tomorrow then switch to Lovenox, according Update study, LMW heparin or Edoxaban are the choice for pt with malignancy 12/22 pt took Estrogen at home without medical need as pt's daughter report. It is a high risk factor for pt to develop PE. continue heparin and follow up heparin protocol There is no swelling, redness, or any indication for DVT in pt's low extremities 12/21 pt feel slight better for her breathing. continue heparin IV and follow up protocol continue tele and monitor Moderate to large central PE, pt present significantly SOB, followup recommendation: Heparin IV and heparin protocol tele and vital monitor (2) Shortness of breath Conclusion/Plan: 12/23 pt is better, 98% sats on 2 liter of O2, but pt report some cough order CXR, follow up continue Heparin drip 12/22 better for breath, continue heparin treatment plan 12/21 improved, continue heparin IV and protocol It appears caused by PE treat with Heparin PRN with INH treatment O2 supplement as needed (3) Elevated troponin Conclusion/Plan: 12/23 stable, continue tele, vital monitor 12/22 no chest pain or distress 12/21 stable, denies chest pain, ECHO reveals unremarkable. it seems from large PE stain on right ventricle. continue on ICU monitor, continue tele, vital it appears from strain from moderate to large to the right ventricle, per CTA analysis. pt denies chest pain. EKG is pending will continue serial troponin tele and vital monitor pt is on Heparin and protocol (4) Pancytopenia Conclusion/Plan: 12/22 stable, continue monitor stable, no fever, or chill, follow up Dr. Sharma as out-pt WBC 2.9, RBC 3. it appears from her MM advise pt followup her oncologist as out-pt (5) DM2 (diabetes mellitus, type 2) Conclusion/Plan: slide scale, ACHS hypoglycemia protocol (6) UTI (urinary tract infection) Conclusion/Plan: 12/23 UA culture, is positive Klebsiella pneumoniae, sensitive to Rocephin continue Rocephin in hospital course UA reveals UTI, Rocephin and follow up UA culture
[2017-12-24] MEDS: HEPARIN 25000UNITS/500ML (D5W) 25,000 UNIT/500 ML BAG IV SCH ×2 (00:23→20:28)
[2017-12-24] MEDS: SODIUM CHLORIDE FLUSH 0.9% 10 ML SYRINGE IVP SCH ×3 (00:24→16:41)
[2017-12-24 04:58] LABS: BASOPHILS # (AUTO) 0.1 10^3/uL (0.0-0.1); BASOPHILS % (AUTO) 2.4 %; EOSINOPHILS # (AUTO) 0.1 10^3/uL (0.0-0.7); EOSINOPHILS % (AUTO) 3.7 %; LYMPHOCYTES # (AUTO) 0.7 10^3/uL (1.5-3.5); LYMPHOCYTES % (AUTO) 22.7 %; MEAN CORPUSCULAR HEMOGLOBIN 34.1 pg (27.0-31.0); MEAN CORPUSCULAR HGB CONC 33.7 g/dL (32.0-36.0); MEAN CORPUSCULAR VOLUME 101.1 fL (81.0-99.0); MEAN PLATELET VOLUME 9.3 fL (7.9-10.8); MONOCYTES # (AUTO) 0.3 10^3/uL (0.0-1.0); MONOCYTES % (AUTO) 8.4 %; NEUTROPHILS # (AUTO) 1.9 10^3/uL (1.5-6.6); NEUTROPHILS % (AUTO) 62.8 %; PLT - PLATELET COUNT 139 10^3/uL (130-450); RED BLOOD COUNT 2.64 10^6/uL (4.20-5.40); RED CELL DISTRIBUTION WIDTH 18.7 % (12.0-15.0)
[2017-12-24 05:18] LABS: ALBUMIN 2.4 g/dL (3.2-5.5); ALBUMIN/GLOBULIN RATIO 0.9 (1.0-2.2); ALKALINE PHOSPHATASE 100 IU/L (42-121); ALT ALANINE AMINOTRANSFERASE < 10 IU/L (10-60); AST ASPARTATE AMINOTRANSFERASE < 10 IU/L (10-42); BILIRUBIN,TOTAL 0.6 mg/dL (0.2-1.0); BUN - BLOOD UREA NITROGEN 10 mg/dL (6-20); CALCIUM 8.2 mg/dL (8.5-10.3); CARBON DIOXIDE - CO2 28 mmol/L (21-32); CHLORIDE 98 mmol/L (101-111); CREATININE 0.7 mg/dL (0.4-1.0); GFR - MDRD 81 (>89); GLUCOSE 140 mg/dL (70-100); SODIUM 135 mmol/L (135-145); TOTAL PROTEIN 5.2 g/dL (6.7-8.2)
[2017-12-24] MEDS: ACETAMINOPHEN 325 MG TABLET PO PRN ×2 (06:34→10:01)
[2017-12-24] MEDS: LEVOTHYROXINE 25 MCG TABLET PO SCH (06:34)
[2017-12-24] MEDS: GABAPENTIN 300 MG CAPSULE PO SCH ×3 (06:34→21:42)
[2017-12-24] MEDS: LEVOTHYROXINE 125 MCG TABLET PO SCH (06:34)
[2017-12-24] MEDS: POLYETHYLENE GLYCOL 3350 17 GM PACKET PO SCH (07:39)
[2017-12-24] MEDS: INSULIN ASPART 300 UNIT/3 ML PEN SUBQ SCH ×4 (08:57→21:46)
[2017-12-24] MEDS: POTASSIUM CHLORIDE 20 MEQ TABLET PO SCH (09:20)
[2017-12-24] MEDS: MULTIVITAMIN TABLET PO SCH (09:21)
[2017-12-24] MEDS: DIPHENOX/ATROPINE 2.5/0.025 MG TABLET PO PRN (09:21)
[2017-12-24] MEDS: FAMOTIDINE 20 MG TABLET PO SCH ×2 (09:22→21:41)
[2017-12-24] MEDS: MAGNESIUM OXIDE 400 MG TABLET PO SCH (09:22)
[2017-12-24] MEDS: CHOLECALCIFEROL 1,000 UNIT TABLET PO SCH (09:23)
[2017-12-24] MEDS: SERTRALINE 50 MG TABLET PO SCH (09:24)
[2017-12-24] MEDS: FUROSEMIDE 20 MG TABLET PO SCH (09:25)
[2017-12-24] MEDS: BECLOMETHASONE DIPROPIONATE NAS SCH (09:43)
--- NOTE | 2017-12-24 10:55 | PROVIDER PROGRESS NOTE ---
Subjective - Prog Note Date Prog Note Date: 12/24/17 - Subjective Pt reports feeling: Improved Subjective: pt state she feel fine, she is working with PT now. This is the second day pt had therapeutical heparin treatment, tomorrow will be the third day, then switch to Lovenox. Plan d/[facility] on [facility] per PT recommended. Current Medications - Current Medications Current Medications: Active Medications Acetaminophen (Tylenol) 650 mg PO Q4HR PRN PRN Reason: Pain 1 to 4 Last Admin: 12/24/17 10:01 Dose: 650 mg Albuterol () 2.5 mg INH RTQ4H PRN PRN Reason: Wheezing Albuterol/Ipratropium (Duoneb) 3 ml INH RTQ4H PRN PRN Reason: Wheezing Cholecalciferol (Vitamin D3) 2,000 unit PO DAILY [facility] Last Admin: 12/24/17 09:23 Dose: 2,000 unit Diphenoxylate HCl/Atropine (Lomotil) 1 tab PO BID PRN PRN Reason: Diarrhea Last Admin: 12/24/17 09:21 Dose: 1 tab Famotidine (Pepcid) 20 mg PO BID [facility] Last Admin: 12/24/17 09:22 Dose: 20 mg Furosemide (Lasix) 40 mg PO DAILY [facility] Last Admin: 12/24/17 09:25 Dose: 40 mg Gabapentin (Neurontin) 600 mg PO TID [facility] Last Admin: 12/24/17 06:34 Dose: 600 mg Ceftriaxone Sodium 1 gm/ (Sodium Chloride) 100 mls @ 200 mls/hr IV Q24H [facility] Last Infusion: 12/23/17 14:40 Dose: Infused Heparin Sodium/Dextrose () 25,000 unit in 500 mls @ 26.1 mls/hr IV .[id number] [facility]; Protocol Last Admin: 12/24/17 00:23 Dose: 14 unit/kg/hr, 24.36 mls/hr Insulin Aspart (Novolog) 1 - 5 unit SUBQ 0800,1200,1700,2100 [facility]; Protocol Last Admin: 12/24/17 08:57 Dose: Not Given Levothyroxine Sodium (Synthroid) 125 mcg PO QDAC [facility] Last Admin: 12/24/17 06:34 Dose: 125 mcg Levothyroxine Sodium (Synthroid) 25 mcg PO QDAC [facility] Last Admin: 12/24/17 06:34 Dose: 25 mcg Magnesium Oxide (Mag Ox) 400 mg PO DAILYWM [facility] Last Admin: 12/24/17 09:22 Dose: 400 mg Multi-Ingredient Ointment (Zinc Oxide) 1 applic TOP PRN PRN PRN Reason: Skin Care Last Admin: 12/23/17 08:20 Dose: 1 applic Multivitamins (Theragran) 1 tab PO DAILYWM [facility] Last Admin: 12/24/17 09:21 Dose: 1 tab Ondansetron HCl (Zofran Inj) 4 mg IVP Q6HR PRN PRN Reason: Nausea / Vomiting Oxycodone HCl (Roxicodone) 10 mg PO BID PRN PRN Reason: Severe Pain Last Admin: 12/23/17 12:10 Dose: 10 mg Beclomethasone Dipropionate [ Beconase Aq] 2 each CHANDRIKA DAILY [facility] Last Admin: 12/24/17 09:43 Dose: Not Given Polyethylene Glycol (Miralax) 17 gm PO DAILY [facility] Last Admin: 12/24/17 07:39 Dose: Not Given Potassium Chloride (K-Dur) 20 meq PO DAILYWM [facility] Last Admin: 12/24/17 09:20 Dose: 20 meq Primidone (Mysoline) 500 mg PO DAILY [facility] Last Admin: 12/23/17 09:05 Dose: 500 mg Primidone (Mysoline) 300 mg PO 1200 [facility] Last Admin: 12/23/17 12:13 Dose: 300 mg Primidone (Mysoline) 200 mg PO QPM [facility] Last Admin: 12/23/17 21:03 Dose: 200 mg Propranolol HCl (Inderal) 80 mg PO 1200 [facility] Last Admin: 12/23/17 14:51 Dose: 80 mg Propranolol HCl (Inderal) 80 mg PO QPM [facility] Last Admin: 12/23/17 21:03 Dose: 80 mg Propranolol HCl (Inderal) 160 mg PO DAILY [facility] Sertraline HCl (Zoloft) 100 mg PO DAILY [facility] Last Admin: 12/24/17 09:24 Dose: 100 mg Sodium Chloride (Normal Saline Flush 0.9%) 10 ml IVP PRN PRN PRN Reason: NEEDED PER PROVIDER ORDERS Last Admin: 12/21/17 05:24 Dose: 10 ml Sodium Chloride (Normal Saline Flush 0.9%) 10 ml IVP 0100,0900,1700 [facility] Last Admin: 12/24/17 09:44 Dose: Not Given Zinc Oxide (Desitin) 113 gm TOP PRN PRN PRN Reason: Skin Care Zolpidem Tartrate (Ambien) 10 mg PO QPM PRN PRN Reason: Insomnia Cholecalciferol (Vitamin D3) [Vitamin D] 2,000 unit PO DAILY 10/11/12 Clobetasol 0.05% Oint [Temovate] 1 applic TP DAILY PRN 10/11/12 Estrogens, Conjugated [Premarin] 0.3 mg PO HS 10/11/12 Eszopiclone [Lunesta] 3 mg PO QPM PRN 10/11/12 Gabapentin [Neurontin] 600 mg PO TID 10/11/12 Multivitamin [Multivitamins] 1 each PO DAILY 10/11/12 Primidone 100 mg PO TID 10/11/12 Propranolol [Inderal] 80 mg PO QID 10/11/12 Diphenoxylate HCl/Atropine [Diphenoxylate-Atrop 2.5-0.025] 1 tab PO BID PRN 12/20/17 Omeprazole 40 mg PO BIDAC 12/20/17 Sertraline HCl 100 mg PO DAILY 12/20/17 Beclomethasone Dipropionate [Beconase Aq] 2 spray NS DAILY 12/21/17 Levothyroxine Sodium 150 mcg PO DAILY 12/21/17 Nitrofurantoin [Macrobid] 100 mg PO BID PRN 12/21/17 Oxycodone HCl/Acetaminophen [Oxycodone-Acetaminophen 10-325] 1 tab PO BID PRN 12/21/17 tiZANidine [Zanaflex] 4 mg PO DAILY PRN 12/21/17 Objective - Vital Signs/Intake & Output Reviewed Vital Signs: Yes Vital Signs: Vital Signs x48h Temp Pulse Resp BP Pulse Ox 12/24/17 08:05 65 20 101/67 98 12/24/17 04:00 36.8 C 63 25 H 114/61 100 Intake & Output: Intake & Output 12/21/17 12/22/17 12/23/17 12/24/17 23:59 23:59 23:59 22:59 Intake Total 2421.745 3448.448 1200 824.208 Output Total 2485 900 1251 700 Balance -1380.448 918.448 -51 124.208 - Objective General Appearance: positive: No acute distress, Alert. negative: Lethargic Eyes Bilateral: positive: Normal inspection, PERRL, No lid inflammation, Conjunctivae nml ENT: positive: ENT inspection nml, Pharynx nml, No signs of dehydration. negat marisela: Purulent nasal drainage, Pharyngeal erythema, Oral lesions Neck: positive: Nml inspection, Thyroid nml, No JVD, Trachea midline. negative: Thyromegaly, Lymphadenopathy (R), Lymphadenopathy (L), Stiff neck, Swelling/bruising, Tracheal deviation Respiratory: positive: Chest non-tender, No respiratory distress. negative: Wheezes, Rales, Rhonchi Cardiovascular: positive: Regular rate & rhythm, No murmur, No gallop. ne gative: Irregularly irregular, Extrasystoles, Bradycardia, JVD present, Systolic murmur, Diastolic murmur Peripheral Pulses: 2+ Radial (R), 2+ Radial (L), 2+ Dorsalis pedis (R), 2+ Dorsalis pedis (L) Abdomen: positive: Non-tender, No organomegaly, Nml bowel sounds, No distention. negative: Tenderness, Guarding, Rebound Back: positive: Nml inspection. negative: CVA tenderness (R), CVA tenderness (L) Skin: positive: Color nml, No rash, Warm, Dry. negative: Cyanosis, Diaphoresis, Pallor Extremities: positive: Non-tender, Full ROM, Nml appearance. negative: Calf tenderness, Joint swelling, Brannon's sign/cords Neurologic/Psychiatric: positive: Oriented x3, Sensation nml, Mood/affect nml. negative: Weakness, Sensory loss, Facial droop, Slurred/abnml speech, Depressed mood/affect - Lab Results Fish Bones: 12/24/17 04:25 12/24/17 04:25 Other Labs: Lab Results x24hrs 12/24/17 12/24/17 12/24/17 Range/Units 04:25 04:25 04:25 WBC 3.0 L (4.8-10.8) x10^3/uL RBC 2.64 L (4.20-5.40) 10^6/uL Hgb 9.0 L (12.0-16.0) g/dL Hct 26.7 L (37.0-47.0) % MCV 101.1 H (81.0-99.0) fL MCH 34.1 H (27.0-31.0) pg MCHC 33.7 (32.0-36.0) g/dL RDW 18.7 H (12.0-15.0) % Plt Count 139 (130-450) 10^3/uL MPV 9.3 (7.9-10.8) fL Neut # (Auto) 1.9 (1.5-6.6) 10^3/uL Lymph # (Auto) 0.7 L (1.5-3.5) 10^3/uL [place] # (Auto) 0.3 (0.0-1.0) 10^3/uL Eos # (Auto) 0.1 (0.0-0.7) 10^3/uL Baso # (Auto) 0.1 (0.0-0.1) 10^3/uL Absolute Nucleated RBC 0.00 x10^3/uL Nucleated RBC % 0.1 /100WBC Anti-Xa Level 0.4 ( - 0.7) U/mL Sodium 135 (135-145) mmol/L Potassium 3.7 (3.5-5.0) mmol/L Chloride 98 L (101-111) mmol/L Carbon Dioxide 28 (21-32) mmol/L Anion Gap 9.0 (6-13) BUN 10 (6-20) mg/dL Creatinine 0.7 (0.4-1.0) mg/dL Estimated GFR (MDRD) 81 L (>89) Glucose 140 H (70-100) mg/dL POC Whole Bld Glucose (70 - 100) mg/dL Calcium 8.2 L (8.5-10.3) mg/dL Total Bilirubin 0.6 (0.2-1.0) mg/dL AST < 10 L (10-42) IU/L ALT < 10 L (10-60) IU/L Alkaline Phosphatase 100 (42-121) IU/L Total Protein 5.2 L (6.7-8.2) g/dL Albumin 2.4 L (3.2-5.5) g/dL Globulin 2.8 (2.1-4.2) g/dL Albumin/Globulin Ratio 0.9 L (1.0-2.2) 12/23/17 12/23/17 12/23/17 Range/Units 17:08 17:07 11:45 WBC (4.8-10.8) x10^3/uL RBC (4.20-5.40) 10^6/uL Hgb (12.0-16.0) g/dL Hct (37.0-47.0) % MCV (81.0-99.0) fL MCH (27.0-31.0) pg MCHC (32.0-36.0) g/dL RDW (12.0-15.0) % Plt Count (130-450) 10^3/uL MPV (7.9-10.8) fL Neut # (Auto) (1.5-6.6) 10^3/uL Lymph # (Auto) (1.5-3.5) 10^3/uL [place] # (Auto) (0.0-1.0) 10^3/uL Eos # (Auto) (0.0-0.7) 10^3/uL Baso # (Auto) (0.0-0.1) 10^3/uL Absolute Nucleated RBC x10^3/uL Nucleated RBC % /100WBC Anti-Xa Level 0.3 ( - 0.7) U/mL Sodium (135-145) mmol/L Potassium (3.5-5.0) mmol/L Chloride (101-111) mmol/L Carbon Dioxide (21-32) mmol/L Anion Gap (6-13) BUN (6-20) mg/dL Creatinine (0.4-1.0) mg/dL Estimated GFR (MDRD) (>89) Glucose (70-100) mg/dL POC Whole Bld Glucose 142 H 185 H (70 - 100) mg/dL Calcium (8.5-10.3) mg/dL Total Bilirubin (0.2-1.0) mg/dL AST (10-42) IU/L ALT (10-60) IU/L Alkaline Phosphatase (42-121) IU/L Total Protein (6.7-8.2) g/dL Albumin (3.2-5.5) g/dL Globulin (2.1-4.2) g/dL Albumin/Globulin Ratio (1.0-2.2) 12/23/17 Range/Units 10:55 WBC (4.8-10.8) x10^3/uL RBC (4.20-5.40) 10^6/uL Hgb (12.0-16.0) g/dL Hct (37.0-47.0) % MCV (81.0-99.0) fL MCH (27.0-31.0) pg MCHC (32.0-36.0) g/dL RDW (12.0-15.0) % Plt Count (130-450) 10^3/uL MPV (7.9-10.8) fL Neut # (Auto) (1.5-6.6) 10^3/uL Lymph # (Auto) (1.5-3.5) 10^3/uL [place] # (Auto) (0.0-1.0) 10^3/uL Eos # (Auto) (0.0-0.7) 10^3/uL Baso # (Auto) (0.0-0.1) 10^3/uL Absolute Nucleated RBC x10^3/uL Nucleated RBC % /100WBC Anti-Xa Level 0.5 ( - 0.7) U/mL Sodium (135-145) mmol/L Potassium (3.5-5.0) mmol/L Chloride (101-111) mmol/L Carbon Dioxide (21-32) mmol/L Anion Gap (6-13) BUN (6-20) mg/dL Creatinine (0.4-1.0) mg/dL Estimated GFR (MDRD) (>89) Glucose (70-100) mg/dL POC Whole Bld Glucose (70 - 100) mg/dL Calcium (8.5-10.3) mg/dL Total Bilirubin (0.2-1.0) mg/dL AST (10-42) IU/L ALT (10-60) IU/L Alkaline Phosphatase (42-121) IU/L Total Protein (6.7-8.2) g/dL Albumin (3.2-5.5) g/dL Globulin (2.1-4.2) g/dL Albumin/Globulin Ratio (1.0-2.2) ABX Reporting Has patient been on IV antibiotics over the past 48 hours?: No Assessment/Plan - Problem List (1) Pulmonary embolism Impression: 12/24 this the second day pt had therapeutic Xa of heparin drip treatment, continue to tomorrow per Update recommendation, then switch to Lovenox. continue heparin drip and protocol 12/23 continue heparin until tomorrow then switch to Lovenox, according Update study, LMW heparin or Edoxaban are the choice for pt with malignancy 12/22 pt took Estrogen at home without medical need as pt's daughter report. It is a high risk factor for pt to develop PE. continue heparin and follow up heparin protocol There is no swelling, redness, or any indication for DVT in pt's low extremities 12/21 pt feel slight better for her breathing. continue heparin IV and follow up protocol continue tele and monitor Moderate to large central PE, pt present significantly SOB, followup re commendation: Heparin IV and heparin protocol tele and vital monitor (2) Shortness of breath Conclusion/Plan: 12/24 improved 12/23 pt is better, 98% sats on 2 liter of O2, but pt report some cough order CXR, follow up continue Heparin drip 12/22 better for breath, continue heparin treatment plan 12/21 improved, continue heparin IV and protocol It appears caused by PE treat with Heparin PRN with INH treatment O2 supplement as needed (3) Elevated troponin Conclusion/Plan: 12/24 stable, no chest pain 12/23 stable, continue tele, vital monitor 12/22 no chest pain or distress 12/21 stable, denies chest pain, ECHO reveals unremarkable. it seems from large PE stain on right ventricle. continue on ICU monitor, continue tele, vital it appears from strain from moderate to large to the right ventricle, per CTA analysis. pt denies chest pain. EKG is pending will continue serial troponin tele and vital monitor pt is on Heparin and protocol (4) Pancytopenia Conclusion/Plan: 12/24 continue lab monitor, Platelet is stable. 12/22 stable, continue monitor stable, no fever, or chill, follow up Dr. Sharma as out-pt WBC 2.9, RBC 3. it appears from her MM advise pt followup her oncologist as out-pt (5) DM2 (diabetes mellitus, type 2) Conclusion/Plan: slide scale, ACHS hypoglycemia protocol (6) UTI (urinary tract infection) Conclusion/Plan: 12/24 continue Rocephin 12/23 UA culture, is positive Klebsiella pneumoniae, sensitive to Rocephin continue Rocephin in hospital course UA reveals UTI, Rocephin and follow up UA culture
[2017-12-24] MEDS: PROPRANOLOL 40 MG TABLET PO SCH ×3 (10:56→21:42)
[2017-12-24] MEDS: oxyCODONE 5 MG TABLET PO PRN ×2 (11:14→21:44)
[2017-12-24] MEDS: PRIMIDONE 50 MG TABLET PO SCH ×2 (11:18→21:43)
[2017-12-24] MEDS: cefTRIAXone 1 GM in SODIUM CHLORIDE 0.9% MINIBAG 100 ML IV SCH (14:48)
[2017-12-24] MEDS ORDERED: MELATONIN PO SCH (21:00)
[2017-12-24] MEDS ORDERED: PYRIDOXINE PO SCH (21:00)
[2017-12-25] MEDS: SODIUM CHLORIDE FLUSH 0.9% 10 ML SYRINGE IVP SCH ×3 (03:46→17:38)
[2017-12-25 05:20] LABS: BASOPHILS # (AUTO) 0.1 10^3/uL (0.0-0.1); BASOPHILS % (AUTO) 2.7 %; EOSINOPHILS # (AUTO) 0.1 10^3/uL (0.0-0.7); EOSINOPHILS % (AUTO) 2.5 %; HGB - HEMOGLOBIN 9.2 g/dL (12.0-16.0); LYMPHOCYTES # (AUTO) 0.8 10^3/uL (1.5-3.5); LYMPHOCYTES % (AUTO) 21.5 %; MEAN CORPUSCULAR HEMOGLOBIN 34.1 pg (27.0-31.0); MEAN CORPUSCULAR HGB CONC 33.3 g/dL (32.0-36.0); MEAN CORPUSCULAR VOLUME 102.3 fL (81.0-99.0); MEAN PLATELET VOLUME 8.7 fL (7.9-10.8); MONOCYTES # (AUTO) 0.3 10^3/uL (0.0-1.0); MONOCYTES % (AUTO) 7.7 %; NEUTROPHILS # (AUTO) 2.4 10^3/uL (1.5-6.6); NEUTROPHILS % (AUTO) 65.6 %; PLT - PLATELET COUNT 159 10^3/uL (130-450); RED CELL DISTRIBUTION WIDTH 18.8 % (12.0-15.0); WHITE BLOOD COUNT 3.7 x10^3/uL (4.8-10.8)
[2017-12-25 05:31] LABS: ALBUMIN 2.4 g/dL (3.2-5.5); ALBUMIN/GLOBULIN RATIO 0.8 (1.0-2.2); BILIRUBIN,TOTAL 0.5 mg/dL (0.2-1.0); CALCIUM 8.2 mg/dL (8.5-10.3); CREATININE 0.8 mg/dL (0.4-1.0); TOTAL PROTEIN 5.5 g/dL (6.7-8.2)
[2017-12-25] MEDS: LEVOTHYROXINE 125 MCG TABLET PO SCH (06:22)
[2017-12-25] MEDS: GABAPENTIN 300 MG CAPSULE PO SCH ×3 (06:22→20:58)
[2017-12-25] MEDS: LEVOTHYROXINE 25 MCG TABLET PO SCH (06:22)
[2017-12-25] MEDS: SERTRALINE 50 MG TABLET PO SCH (09:21)
[2017-12-25] MEDS: MAGNESIUM OXIDE 400 MG TABLET PO SCH (09:21)
[2017-12-25] MEDS: MULTIVITAMIN TABLET PO SCH (09:22)
[2017-12-25] MEDS: FAMOTIDINE 20 MG TABLET PO SCH ×2 (09:22→20:57)
[2017-12-25] MEDS: POTASSIUM CHLORIDE 20 MEQ TABLET PO SCH (09:22)
[2017-12-25] MEDS: PRIMIDONE 50 MG TABLET PO SCH ×3 (09:22→20:58)
[2017-12-25] MEDS: PROPRANOLOL 40 MG TABLET PO SCH ×3 (09:23→20:57)
[2017-12-25] MEDS: CHOLECALCIFEROL 1,000 UNIT TABLET PO SCH (09:23)
[2017-12-25] MEDS: INSULIN ASPART 300 UNIT/3 ML PEN SUBQ SCH ×4 (09:23→20:59)
[2017-12-25] MEDS: POLYETHYLENE GLYCOL 3350 17 GM PACKET PO SCH (09:24)
[2017-12-25] MEDS: BECLOMETHASONE DIPROPIONATE NAS SCH (09:24)
[2017-12-25] MEDS: FUROSEMIDE 20 MG TABLET PO SCH (09:28)
--- NOTE | 2017-12-25 12:10 | PROVIDER PROGRESS NOTE ---
Subjective - Prog Note Date Prog Note Date: 12/25/17 - Subjective Pt reports feeling: Improved Subjective: pt report her breath is stable. She denies chest pain, fever, chill. we will switch to Lovenox this afternoon and stop Heparin drip. PT/OT recommended pt for SNF. Current Medications - Current Medications Current Medications: Active Medications Acetaminophen (Tylenol) 650 mg PO Q4HR PRN PRN Reason: Pain 1 to 4 Last Admin: 12/24/17 10:01 Dose: 650 mg Albuterol () 2.5 mg INH RTQ4H PRN PRN Reason: Wheezing Albuterol/Ipratropium (Duoneb) 3 ml INH RTQ4H PRN PRN Reason: Wheezing Cholecalciferol (Vitamin D3) 2,000 unit PO DAILY [facility] Last Admin: 12/25/17 09:23 Dose: 2,000 unit Diphenoxylate HCl/Atropine (Lomotil) 1 tab PO BID PRN PRN Reason: Diarrhea Last Admin: 12/24/17 09:21 Dose: 1 tab Famotidine (Pepcid) 20 mg PO BID [facility] Last Admin: 12/25/17 09:22 Dose: 20 mg Furosemide (Lasix) 40 mg PO DAILY [facility] Last Admin: 12/25/17 09:28 Dose: 40 mg Gabapentin (Neurontin) 600 mg PO TID [facility] Last Admin: 12/25/17 06:22 Dose: 600 mg Ceftriaxone Sodium 1 gm/ (Sodium Chloride) 100 mls @ 200 mls/hr IV Q24H [facility] Last Infusion: 12/24/17 15:20 Dose: Infused Heparin Sodium/Dextrose () 25,000 unit in 500 mls @ 26.1 mls/hr IV .[id number] [facility]; Protocol Last Admin: 12/24/17 20:28 Dose: 14 unit/kg/hr, 24.36 mls/hr Insulin Aspart (Novolog) 1 - 5 unit SUBQ 0800,1200,1700,2100 [facility]; Protocol Last Admin: 12/25/17 12:08 Dose: 2 unit Levothyroxine Sodium (Synthroid) 125 mcg PO QDAC [facility] Last Admin: 12/25/17 06:22 Dose: 125 mcg Levothyroxine Sodium (Synthroid) 25 mcg PO QDAC [facility] Last Admin: 12/25/17 06:22 Dose: 25 mcg Magnesium Oxide (Mag Ox) 400 mg PO DAILYWM [facility] Last Admin: 12/25/17 09:21 Dose: 400 mg Multi-Ingredient Ointment (Zinc Oxide) 1 applic TOP PRN PRN PRN Reason: Skin Care Last Admin: 12/23/17 08:20 Dose: 1 applic Multivitamins (Theragran) 1 tab PO DAILYWM [facility] Last Admin: 12/25/17 09:22 Dose: 1 tab Ondansetron HCl (Zofran Inj) 4 mg IVP Q6HR PRN PRN Reason: Nausea / Vomiting Oxycodone HCl (Roxicodone) 10 mg PO BID PRN PRN Reason: Severe Pain Last Admin: 12/24/17 21:44 Dose: 10 mg Beclomethasone Dipropionate [ Beconase Aq] 2 each CHANDRIKA DAILY [facility] Last Admin: 12/25/17 09:24 Dose: Not Given Melatonin 5 Mg 1 each PO QPM [facility] Last Admin: 12/25/17 09:08 Dose: Not Given Polyethylene Glycol (Miralax) 17 gm PO DAILY [facility] Last Admin: 12/25/17 09:24 Dose: Not Given Potassium Chloride (K-Dur) 20 meq PO DAILYWM [facility] Last Admin: 12/25/17 09:22 Dose: 20 meq Primidone (Mysoline) 200 mg PO DAILY [facility] Last Admin: 12/25/17 09:22 Dose: 200 mg Primidone (Mysoline) 100 mg PO QPM [facility] Last Admin: 12/24/17 21:43 Dose: 100 mg Primidone (Mysoline) 100 mg PO 1200 [facility] Propranolol HCl (Inderal) 80 mg PO 1200 [facility] Last Admin: 12/25/17 12:04 Dose: 80 mg Propranolol HCl (Inderal) 80 mg PO QPM [facility] Last Admin: 12/24/17 21:42 Dose: 80 mg Propranolol HCl (Inderal) 160 mg PO DAILY [facility] Last Admin: 12/25/17 09:23 Dose: 160 mg Sertraline HCl (Zoloft) 100 mg PO DAILY [facility] Last Admin: 12/25/17 09:21 Dose: 100 mg Sodium Chloride (Normal Saline Flush 0.9%) 10 ml IVP PRN PRN PRN Reason: NEEDED PER PROVIDER ORDERS Last Admin: 12/21/17 05:24 Dose: 10 ml Sodium Chloride (Normal Saline Flush 0.9%) 10 ml IVP 0100,0900,1700 [facility] Last Admin: 12/25/17 09:24 Dose: Not Given Zinc Oxide (Desitin) 113 gm TOP PRN PRN PRN Reason: Skin Care Zolpidem Tartrate (Ambien) 10 mg PO QPM PRN PRN Reason: Insomnia Cholecalciferol (Vitamin D3) [Vitamin D] 2,000 unit PO DAILY 10/11/12 Clobetasol 0.05% Oint [Temovate] 1 applic TP DAILY PRN 10/11/12 Estrogens, Conjugated [Premarin] 0.3 mg PO HS 10/11/12 Eszopiclone [Lunesta] 3 mg PO QPM PRN 10/11/12 Gabapentin [Neurontin] 600 mg PO TID 10/11/12 Multivitamin [Multivitamins] 1 each PO DAILY 10/11/12 Primidone 200 mg PO DAILY 10/11/12 Propranolol [Inderal] 160 mg PO DAILY 10/11/12 Diphenoxylate HCl/Atropine [Diphenoxylate-Atrop 2.5-0.025] 1 tab PO BID PRN 12/20/17 Omeprazole 40 mg PO BIDAC 12/20/17 Sertraline HCl 100 mg PO DAILY 12/20/17 Levothyroxine Sodium 150 mcg PO DAILY 12/21/17 Oxycodone HCl/Acetaminophen [Oxycodone-Acetaminophen 10-325] 1 tab PO BID PRN 12/21/17 tiZANidine [Zanaflex] 1 mg PO BID PRN 12/21/17 Ipratropium [place] 2 puffs NS DAILY 12/24/17 Lenalidomide [Revlimid] 15 mg PO DAILY 12/24/17 Melatonin 5 mg PO QPM 12/24/17 Primidone [Mysoline] 100 mg PO 1200 12/24/17 Primidone [Mysoline] 100 mg PO QPM 12/24/17 Propranolol HCl 80 mg PO 1200 12/24/17 Propranolol HCl 80 mg PO QPM 12/24/17 Objective - Vital Signs/Intake & Output Reviewed Vital Signs: Yes Vital Signs: Vital Signs x48h Temp Pulse Pulse Resp BP Pulse Ox 12/25/17 11:40 37.0 C 68 14 100 12/25/17 11:27 37.0 C 70 22 97/47 L 84 L 12/25/17 08:00 36.8 C 59 L 22 96/34 L 98 12/25/17 05:00 36.8 C 69 20 99/43 L 98 Intake & Output: Intake & Output 12/23/17 12/24/17 12/24/17 12/25/17 00:59 00:59 23:59 23:59 Intake Total 180 Output Total 750 Balance -570 - Objective General Appearance: positive: No acute distress, Alert. negative: Lethargic Eyes Bilateral: positive: Normal inspection, PERRL, No lid inflammation, Conjunctivae nml ENT: positive: ENT inspection nml, Pharynx nml, No signs of dehydration. negative: Purulent nasal drainage, Pharyngeal erythema, Oral lesions Neck: positive: Nml inspection, Thyroid nml, No JVD, Trachea midline. negative: Thyromegaly, Lymphadenopathy (R), Lymphadenopathy (L), Stiff neck, Swelling/bruising, Tracheal deviation Respiratory: positive: Chest non-tender, No respiratory distress. negative: Wheezes, Rales, Rhonchi Cardiovascular: positive: Regular rate & rhythm, No murmur, No gallop. negative: Irregularly irregular, Extrasystoles, Tachycardia, Bradycardia, JVD present, Systolic murmur, Diastolic murmur Peripheral Pulses: 2+ Radial (R), 2+ Radial (L), 2+ Dorsalis pedis (R), 2+ Dorsalis pedis (L) Abdomen: positive: Non-tender, No organomegaly, Nml bowel sounds, No distention. negative: Tenderness, Guarding, Rebound Back: positive: Nml inspection. negative: CVA tenderness (R), CVA tenderness (L) Skin: positive: Color nml, No rash, Warm, Dry. negative: Cyanosis, Diaphoresis, Pallor Extremities: positive: Non-tender, Full ROM, Nml appearance. negative: Calf tenderness, Joint swelling, Brannon's sign/cords Neurologic/Psychiatric: positive: Oriented x3, Sensation nml, Mood/affect nml. negative: Weakness, Sensory loss, Facial droop, Slurred/abnml speech, Depressed mood/affect - Lab Results Fish Bones: 12/25/17 05:15 12/25/17 05:15 Other Labs: Lab Results x24hrs 12/25/17 12/25/17 12/25/17 Range/Units 11:57 07:29 05:15 WBC (4.8-10.8) x10^3/uL RBC (4.20-5.40) 10^6/uL Hgb (12.0-16.0) g/dL Hct (37.0-47.0) % MCV (81.0-99.0) fL MCH (27.0-31.0) pg MCHC (32.0-36.0) g/dL RDW (12.0-15.0) % Plt Count (130-450) 10^3/uL MPV (7.9-10.8) fL Neut # (Auto) (1.5-6.6) 10^3/uL Lymph # (Auto) (1.5-3.5) 10^3/uL Long # (Auto) (0.0-1.0) 10^3/uL Eos # (Auto) (0.0-0.7) 10^3/uL Baso # (Auto) (0.0-0.1) 10^3/uL Absolute Nucleated RBC x10^3/uL Nucleated RBC % /100WBC Anti-Xa Level 0.4 ( - 0.7) U/mL Sodium (135-145) mmol/L Potassium (3.5-5.0) mmol/L Chloride (101-111) mmol/L Carbon Dioxide (21-32) mmol/L Anion Gap (6-13) BUN (6-20) mg/dL Creatinine (0.4-1.0) mg/dL Estimated GFR (MDRD) (>89) Glucose (70-100) mg/dL POC Whole Bld Glucose 188 H 156 H (70 - 100) mg/dL Calcium (8.5-10.3) mg/dL Total Bilirubin (0.2-1.0) mg/dL AST (10-42) IU/L ALT (10-60) IU/L Alkaline Phosphatase (42-121) IU/L Total Protein (6.7-8.2) g/dL Albumin (3.2-5.5) g/dL Globulin (2.1-4.2) g/dL Albumin/Globulin Ratio (1.0-2.2) 12/25/17 12/25/17 12/24/17 Range/Units 05:15 05:15 20:34 WBC 3.7 L (4.8-10.8) x10^3/uL RBC 2.70 L (4.20-5.40) 10^6/uL Hgb 9.2 L (12.0-16.0) g/dL Hct 27.7 L (37.0-47.0) % MCV 102.3 H (81.0-99.0) fL MCH 34.1 H (27.0-31.0) pg MCHC 33.3 (32.0-36.0) g/dL RDW 18.8 H (12.0-15.0) % Plt Count 159 (130-450) 10^3/uL MPV 8.7 (7.9-10.8) fL Neut # (Auto) 2.4 (1.5-6.6) 10^3/uL Lymph # (Auto) 0.8 L (1.5-3.5) 10^3/uL Long # (Auto) 0.3 (0.0-1.0) 10^3/uL Eos # (Auto) 0.1 (0.0-0.7) 10^3/uL Baso # (Auto) 0.1 (0.0-0.1) 10^3/uL Absolute Nucleated RBC 0.00 x10^3/uL Nucleated RBC % 0.1 /100WBC Anti-Xa Level ( - 0.7) U/mL Sodium 131 L (135-145) mmol/L Potassium 3.5 (3.5-5.0) mmol/L Chloride 94 L (101-111) mmol/L Carbon Dioxide 28 (21-32) mmol/L Anion Gap 9.0 (6-13) BUN 11 (6-20) mg/dL Creatinine 0.8 (0.4-1.0) mg/dL Estimated GFR (MDRD) 69 L (>89) Glucose 131 H (70-100) mg/dL POC Whole Bld Glucose 162 H (70 - 100) mg/dL Calcium 8.2 L (8.5-10.3) mg/dL Total Bilirubin 0.5 (0.2-1.0) mg/dL AST 13 (10-42) IU/L ALT 10 (10-60) IU/L Alkaline Phosphatase 104 (42-121) IU/L Total Protein 5.5 L (6.7-8.2) g/dL Albumin 2.4 L (3.2-5.5) g/dL Globulin 3.1 (2.1-4.2) g/dL Albumin/Globulin Ratio 0.8 L (1.0-2.2) 12/24/17 12/24/17 Range/Units 16:33 12:37 WBC (4.8-10.8) x10^3/uL RBC (4.20-5.40) 10^6/uL Hgb (12.0-16.0) g/dL Hct (37.0-47.0) % MCV (81.0-99.0) fL MCH (27.0-31.0) pg MCHC (32.0-36.0) g/dL RDW (12.0-15.0) % Plt Count (130-450) 10^3/uL MPV (7.9-10.8) fL Neut # (Auto) (1.5-6.6) 10^3/uL Lymph # (Auto) (1.5-3.5) 10^3/uL Long # (Auto) (0.0-1.0) 10^3/uL Eos # (Auto) (0.0-0.7) 10^3/uL Baso # (Auto) (0.0-0.1) 10^3/uL Absolute Nucleated RBC x10^3/uL Nucleated RBC % /100WBC Anti-Xa Level ( - 0.7) U/mL Sodium (135-145) mmol/L Potassium (3.5-5.0) mmol/L Chloride (101-111) mmol/L Carbon Dioxide (21-32) mmol/L Anion Gap (6-13) BUN (6-20) mg/dL Creatinine (0.4-1.0) mg/dL Estimated GFR (MDRD) (>89) Glucose (70-100) mg/dL POC Whole Bld Glucose 160 H 190 H (70 - 100) mg/dL Calcium (8.5-10.3) mg/dL Total Bilirubin (0.2-1.0) mg/dL AST (10-42) IU/L ALT (10-60) IU/L Alkaline Phosphatase (42-121) IU/L Total Protein (6.7-8.2) g/dL Albumin (3.2-5.5) g/dL Globulin (2.1-4.2) g/dL Albumin/Globulin Ratio (1.0-2.2) ABX Reporting Has patient been on IV antibiotics over the past 48 hours?: No Assessment/Plan - Problem List (1) Pulmonary embolism Impression: (1) Pulmonary embolism Impression: 12/25 pt is stable, per recommendations, stop Heparin drip, start Lovenox continue tele, vital monitor 12/24 this the second day pt had therapeutic Xa of heparin drip treatment, continue to tomorrow per Update recommendation, then switch to Lovenox. continue heparin drip and protocol 12/23 continue heparin until tomorrow then switch to Lovenox, according Update study, LMW heparin or Edoxaban are the choice for pt with malignancy 12/22 pt took Estrogen at home without medical need as pt's daughter report. It is a high risk factor for pt to develop PE. continue heparin and follow up heparin protocol There is no swelling, redness, or any indication for DVT in pt's low extremities 12/21 pt feel slight better for her breathing. continue heparin IV and follow up protocol continue tele and monitor Moderate to large central PE, pt present significantly SOB, followup recommendation: Heparin IV and heparin protocol tele and vital monitor (2) Shortness of breath Conclusion/Plan: 12/25, improved, switch to Lovenox 12/24 improved 12/23 pt is better, 98% sats on 2 liter of O2, but pt report some cough order CXR, follow up continue Heparin drip 12/22 better for breath, continue heparin treatment plan 12/21 improved, continue heparin IV and protocol It appears caused by PE treat with Heparin PRN with INH treatment O2 supplement as needed (3) Elevated troponin Conclusion/Plan: 12/24 stable, no chest pain 12/23 stable, continue tele, vital monitor 12/22 no chest pain or distress 12/21 stable, denies chest pain, ECHO reveals unremarkable. it seems from large PE stain on right ventricle. continue on ICU monitor, continue tele, vital it appears from strain from moderate to large to the right ventricle, per CTA analysis. pt denies chest pain. EKG is pending will continue serial troponin tele and vital monitor pt is on Heparin and protocol (4) Pancytopenia Conclusion/Plan: 12/25 stable, continue lab monitor Platelet is stable 12/24 continue lab monitor, Platelet is stable. 12/22 stable, continue monitor stable, no fever, or chill, follow up Dr. Sharma as out-pt WBC 2.9, RBC 3. it appears from her MM advise pt followup her oncologist as out-pt (5) DM2 (diabetes mellitus, type 2) Conclusion/Plan: 12/25 glucose stable, continue slide scale, ACHS slide scale, ACHS hypoglycemia protocol (6) UTI (urinary tract infection) Conclusion/Plan: 12/24 continue Rocephin 12/23 UA culture, is positive Klebsiella pneumoniae, sensitive to Rocephin continue Rocephin in hospital course UA reveals UTI, Rocephin and follow up UA culture (7) weakness continue PT/OT recommendation by PT/OT to [facility], [facility], on tomorrow.
[2017-12-25] MEDS: cefTRIAXone 1 GM in SODIUM CHLORIDE 0.9% MINIBAG 100 ML IV SCH (13:52)
[2017-12-25] MEDS: ENOXAPARIN 80 MG/0.8 ML SYRINGE SUBQ SCH ×2 (14:48→20:58)
[2017-12-25] MEDS: ZINC OXIDE 20% OINT 28.35 GM TUBE TOP PRN (17:38)
[2017-12-26] MEDS: SODIUM CHLORIDE FLUSH 0.9% 10 ML SYRINGE IVP SCH ×2 (00:59→09:05)
[2017-12-26] MEDS: GABAPENTIN 300 MG CAPSULE PO SCH ×2 (06:16→13:34)
[2017-12-26] MEDS: LEVOTHYROXINE 25 MCG TABLET PO SCH (06:17)
[2017-12-26] MEDS: LEVOTHYROXINE 125 MCG TABLET PO SCH (06:17)
[2017-12-26 07:58] VITALS: BP 109/57
[2017-12-26] MEDS: PROPRANOLOL 40 MG TABLET PO SCH ×2 (08:56→12:14)
[2017-12-26] MEDS: SERTRALINE 50 MG TABLET PO SCH (08:56)
[2017-12-26] MEDS: FUROSEMIDE 20 MG TABLET PO SCH (08:57)
[2017-12-26] MEDS: oxyCODONE 5 MG TABLET PO PRN (08:57)
[2017-12-26] MEDS: MAGNESIUM OXIDE 400 MG TABLET PO SCH (08:58)
[2017-12-26] MEDS: FAMOTIDINE 20 MG TABLET PO SCH (08:58)
[2017-12-26] MEDS: ENOXAPARIN 80 MG/0.8 ML SYRINGE SUBQ SCH (08:58)
[2017-12-26] MEDS: MULTIVITAMIN TABLET PO SCH (08:58)
[2017-12-26] MEDS: CHOLECALCIFEROL 1,000 UNIT TABLET PO SCH (08:58)
[2017-12-26] MEDS: POTASSIUM CHLORIDE 20 MEQ TABLET PO SCH (08:58)
[2017-12-26] MEDS: INSULIN ASPART 300 UNIT/3 ML PEN SUBQ SCH ×2 (09:04→12:13)
[2017-12-26] MEDS: BECLOMETHASONE DIPROPIONATE NAS SCH (09:04)
[2017-12-26] MEDS: POLYETHYLENE GLYCOL 3350 17 GM PACKET PO SCH (09:04)
[2017-12-26] MEDS: PRIMIDONE 50 MG TABLET PO SCH ×2 (09:04→12:14)
[2017-12-26] MEDS: cefTRIAXone 1 GM in SODIUM CHLORIDE 0.9% MINIBAG 100 ML IV SCH (13:34)
--- NOTE | 2017-12-26 13:50 | Discharge Plan ---
"Discharge Plan for SNF / [facility] - Discharge Plan And Transition Orders Disposition: 03 SNF DC/Xfer Condition: Good Allergies and Adverse Reactions: Allergies Allergy/AdvReac Type Severity Reaction Status Date / Time phenazopyridine Allergy Unknown Nausea Verified 12/21/17 00:26 [Phenazopyridine] Sulfa (Sulfonamide Allergy Unknown Hives Verified 12/20/17 12:27 Antibiotics) adhesive Allergy Rash Verified 12/20/17 12:27 celecoxib [From Celebrex] Allergy Rash Verified 12/20/17 12:27 levofloxacin [From Levaquin] Allergy Hives Verified 12/20/17 12:27 Penicillins Allergy Rash Verified 12/20/17 12:27 morphine AdvReac Unknown Verified 12/20/17 20:44 - SNF / DETENTION Transition Orders Admit to (Facility): [facility] Under the care of (Name): Dr. 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 Multiple myeloma (C90.00) stable. UTI (urinary tract infection) (N39.0) treatment to continue with Cipro x3 days based on urine sensitivities. Weakness (R53.1) Recommend ongoing PT. Shortness of breath (R06.02) improved, no oxygen needed. DM2 (diabetes mellitus, type 2) (E11.9) chronic, stable. Urinary incontinence (R32) chronic, stable. HLD (hyperlipidemia) (E78.5) chronic, stable. Hypertension (I10) chronic, stable. Hx of benign essential tremor (Z86.69) chronic, stable. Insomnia (G47.00) chronic, stable. Medicare Certification Statement: I certify that Post Hospital correction care is medically necessary on a continuing basis for any of the conditions for which she/he is receiving care during hospitalization. Notify PCP of admission and forward orders to primary provider for signature. Weight on admission and: Weekly Other Notification Orders: Call PCP immediately if patient develops dyspnea, chest pain/tightness or edema. House Bowel Program: Yes Additional Bowel Program Orders: If no BM after 2 days, nurse may give M.O.M. 30ml PO PRN and/or ducolax Supp 1 IN and/or JYOTHI 250mg P.O., and/or senna 1-2 tabs PO. On day 3 nurse may give repeat above order until residents constipation is resolved. Annual Influenza Vaccine (between Oct 21 and May 20): Yes Two-step PPD per [facility] [phone] or approved exception documents: Yes Treatments & Other Orders: Routine, weekly labs. Medication Orders: PLEASE REFER TO THE DISCHARGE MEDICATION LIST. Insulin Orders?: No - Medications New Prescriptions: Apixaban [Eliquis] 5 mg PO BID #60 tablet Ciprofloxacin HCl [Cipro] 500 mg PO BID #6 tablet Saccharomyces Boulardii [Florastor] 250 mg PO BID #60 capsule - Diet Type: Geriatric Texture: Regular Liquids: Thin May have monthly special meal: Yes - Therapies | Activity Therapy: Evaluation | Treat if indicated: PT, OT Rehabilitation Potential: Maximize functional status, Return to independent living, Maintain present ADL Functional Activity: Activity as Tolerated Weight Bearing: Full Weight Assistance Devices: Walker"
--- NOTE | 2017-12-26 13:50 | DISCHARGE SUMMARY ---
Discharge Summary Admit Date: 12/20/17 Discharge Date: 12/26/17 Discharging Provider: ROSALIA Castellano Primary Care Provider: Chaparro Avina/Dr. 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 Multiple myeloma (C90.00) stable. UTI (urinary tract infection) (N39.0) treatment to continue with Cipro x3 days based on urine sensitivities. Weakness (R53.1) Recommend ongoing PT. Shortness of breath (R06.02) improved, no oxygen needed. DM2 (diabetes mellitus, type 2) (E11.9) chronic, stable. Urinary incontinence (R32) chronic, stable. HLD (hyperlipidemia) (E78.5) chronic, stable. Hypertension (I10) chronic, stable. Hx of benign essential tremor (Z86.69) chronic, stable. Insomnia (G47.00) chronic, stable. 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 The patient reported that this was a sudden onset of shortness of breath that was first noticed last night, and continued this morning. She denies any history of asthma, or COPD, fevers, chills, cough, or chest pain. A chest x-ray was unremarkable. The patient had significant elevated D-dimer. CTA revealed moderate to large clot burden with central embolus, consistent with associated right heart strain. [facility] intensive team recommendations were to treat with Heparin, no TPA in consideration of high risk of intracranial bleeding based on pt's age, and medical history. - HOSPITAL COURSE Hospital Course: The patient was found to have a saddle PE, was treated with a heparin gtt, then given Lovenox BID, and finally will be transitioned to Eliquis BID indefinitely. She qualified for SNF rehab and was transported via private car by family. Orders were sent to [facility] to ensure ongoing anticoagulation. - ALLERGIES Allergies/Adverse Reactions: Allergies Allergy/AdvReac Type Severity Reaction Status Date / Time phenazopyridine Allergy Unknown Nausea Verified 12/21/17 00:26 [Phenazopyridine] Sulfa (Sulfonamide Allergy Unknown Hives Verified 12/20/17 12:27 Antibiotics) adhesive Allergy Rash Verified 12/20/17 12:27 celecoxib [From Celebrex] Allergy Rash Verified 12/20/17 12:27 levofloxacin [From Levaquin] Allergy Hives Verified 12/20/17 12:27 Penicillins Allergy Rash Verified 12/20/17 12:27 morphine AdvReac Unknown Verified 12/20/17 20:44 - MEDICATIONS Home Medications: Ambulatory Orders Medication Instructions Recorded Confirmed Clobetasol 0.05% Oint [Temovate 1 applic TP DAILY PRN 10/11/12 12/21/17 0.05% Oint] Eszopiclone [Lunesta] 3 mg PO QPM PRN 10/11/12 12/20/17 Apixaban [Eliquis] 5 mg PO BID #60 tablet 12/26/17 Cholecalciferol (Vitamin D3) 2,000 unit PO DAILY #30 12/26/17 12/21/17 [Vitamin D3] Ciprofloxacin HCl [Cipro] 500 mg PO BID #6 tablet 12/26/17 Diphenoxylate HCl/Atropine 1 tab PO BID PRN #20 12/26/17 12/20/17 [Diphenoxylate-Atrop 2.5-0.025] Enoxaparin [Lovenox] 80 mg SUBQ BID #3 syringe 12/26/17 Estrogens, Conjugated [Premarin] 0.3 mg PO HS #30 12/26/17 12/20/17 Gabapentin [Neurontin] 600 mg PO TID #90 12/26/17 12/21/17 Ipratropium [place] 2 puffs NS DAILY #60 12/26/17 12/24/17 Levothyroxine Sodium 150 mcg PO DAILY #30 12/26/17 12/21/17 Melatonin 5 mg PO QPM #30 12/26/17 12/24/17 Multivitamin [Multivitamins] 1 each PO DAILY #30 12/26/17 12/21/17 Omeprazole 40 mg PO BIDAC #30 12/26/17 12/20/17 Oxycodone HCl/Acetaminophen 1 tab PO BID PRN #25 12/26/17 12/21/17 [Oxycodone-Acetaminophen 10-325] Primidone 200 mg PO DAILY #30 12/26/17 12/24/17 Primidone [Mysoline] 100 mg PO 1200 #60 12/26/17 12/24/17 Primidone [Mysoline] 100 mg PO QPM #60 12/26/17 12/24/17 Propranolol HCl 80 mg PO 1200 #30 12/26/17 12/24/17 Propranolol HCl 80 mg PO QPM #30 12/26/17 12/24/17 Propranolol [Inderal] 160 mg PO DAILY #120 12/26/17 12/24/17 Saccharomyces Boulardii [Florastor] 250 mg PO BID #60 capsule 12/26/17 Sertraline HCl 100 mg PO DAILY #30 12/26/17 12/20/17 tiZANidine [Zanaflex] 1 mg PO BID PRN #20 12/26/17 12/24/17 - PHYSICAL EXAM AT DISCHARGE General Appearance: positive: No acute distress, Alert Eyes Bilateral: positive: Normal inspection, PERRL ENT: positive: ENT inspection nml, Pharynx nml, No signs of dehydration Neck: positive: Nml inspection, Thyroid nml, No JVD Respiratory: positive: Chest non-tender, No respiratory distress, Other (scattered crackles throughout, bilaterally) Cardiovascular: positive: Regular rate & rhythm, No gallop, Systolic murmur, Decreased pulse(s) Peripheral Pulses: positive: 1+ Abdomen: positive: Non-tender, Nml bowel sounds, Other (rounded, soft) Back: positive: Nml inspection Skin: positive: No rash, Warm, Dry Extremities: positive: Non-tender, Pedal edema, Joint swelling Neurologic/Psychiatric: positive: Disoriented to time, Weakness, Sensory loss, Depressed mood/affect Reflexes: Bicep (R): 3+, Bicep (L): 3+ - LABS Result Diagrams: 12/25/17 05:15 12/25/17 05:15 - DIAGNOSTIC IMAGING Diagnostic Imaging Results: Final report reviewed Diagnostic Imaging Results Comments: EXAM: CHEST RADIOGRAPHY EXAM DATE: 12/23/2017 09:20 AM. IMPRESSION: 1. Prominence of the right hilum, which may correspond to enlarged branch of the right pulmonary artery, which demonstrated embolus on prior CTA. Prior CT demonstrated fairly large embolic burden with findings suggestive of right heart strain. 2. No significant change in mild hazy opacities over both lungs, corresponding to groundglass foci seen on CT. This may represent pneumonitis or perfusion abnormality related to pulmonary emboli. 3. Multiple lucent osseous lesions involving bilateral ribs and bilateral humeri, compatible with osseous metastatic disease seen on previous CT. ECHOCARDIOGRAM: Final read by Joe Neely MD on 12/21/17 1. Mild concentric LVH with normal systolic function, EF 65%. The LA is normal in size. 2. Moderate tricuspid regurg. Severely dilated RV with mild to moderately reduced function. 3. Mild to moderate tricuspid regurg but otherwise normal valve function. 4. Dilated coronary sinus suggestive of a persistent left-sided SVC noted. CT correlation may be helpful. - SEPSIS Current Stage of Sepsis: Resolved - TIME SPENT Time Spent in Discharge (Minutes): 70
[2017-12-26] MEDS ORDERED: IOPAMIDOL-300 100 ML VIAL IVP ONE (14:01)
[2017-12-26] MEDS ORDERED: APIXABAN 5 MG TABLET PO SCH (21:00)
== END 2017-12-26 14:39 | DRG 176 ==
LOC: EDSEX → EDUNIT# → ED 12:07 → OBS 16:03 → OBSVTOIN 19:18 → ICU 19:49 → MS2 12-24 15:32
PROVIDERS: ADMIT Nurse Practitioner Gerontology; ATTEND Nurse Practitioner Gerontology
DX: I26.99 Other pulmonary embolism without acute cor pulmonale (principal); I26.92 Saddle embolus of pulmonary artery without acute cor pulmonale; N30.00 Acute cystitis without hematuria; C90.00 Multiple myeloma not having achieved remission; N39.0 Urinary tract infection, site not specified; E78.00 Pure hypercholesterolemia, unspecified; D61.818 Other pancytopenia; E11.9 Type 2 diabetes mellitus without complications; R32 Unspecified urinary incontinence; D64.9 Anemia, unspecified; E78.5 Hyperlipidemia, unspecified; I10 Essential (primary) hypertension; G47.00 Insomnia, unspecified; I07.1 Rheumatic tricuspid insufficiency; K21.9 Gastro-esophageal reflux disease without esophagitis; G25.0 Essential tremor; G62.9 Polyneuropathy, unspecified; G89.29 Other chronic pain; M19.90 Unspecified osteoarthritis, unspecified site; M54.9 Dorsalgia, unspecified; F32.9 Major depressive disorder, single episode, unspecified; R79.89 Other specified abnormal findings of blood chemistry; Z66 Do not resuscitate; Z96.659 Presence of unspecified artificial knee joint; Z79.890 Hormone replacement therapy; Z79.52 Long term (current) use of systemic steroids; Z79.84 Long term (current) use of oral hypoglycemic drugs; Z79.891 Long term (current) use of opiate analgesic; Z85.528 Personal history of other malignant neoplasm of kidney; Z87.440 Personal history of urinary (tract) infections
CPT/HCPCS: 36415; 71045; 71275; 80053; 81001; 81003; 82272; 83036; 83605; 83690; 83735; 83880; 84443; 84484; 85025; 85027; 85379; 85520; 87077; 87086; 87150; 87181; 93005; 93306; 94640; 94664; 96374; 96375; 99284

== ENCOUNTER 2018-05-08 09:41 | Outpatient (CLI) | payer MEDICARE, OTHER | END 2018-05-08 09:42 | disposition critical access hospital (66) | LOC: EMS 09:41 | PROVIDERS: ATTEND Surgery | DX: R51 Headache (principal); R05 Cough; R68.83 Chills (without fever); R41.0 Disorientation, unspecified | CPT/HCPCS: A0425; A0427 ==

== ENCOUNTER 2018-05-08 10:01 | Emergency (ER) | payer MEDICARE, OTHER ==
--- NOTE | 2018-05-08 10:10 | ED Physician Documentation ---
History of Present Illness - Stated complaint Stated Complaint: WEAK/CONFUSED - History obtained from History obtained from: EMS - Additonal information Additional information: Patient is extremely poor historian, although she is cooperative with exam. History obtained from EMS, who also spoke to the patient's daughter. Patient's daughter reported to EMS that she last spoke to her mother about 4-5 days ago and believes that she seems slightly confused at that time. Daughter does not believe patient has fallen. Patient does state that she has not fallen recently. Patient and daughter also complaining of cough. EMS states that fara sebastian does not believe patient has been experiencing chest pain, abdominal pain, vomiting, diarrhea, urine changes, fever, headache, or other illnesses. Unsure as to if there are any improving or worsening factors to patient's symptoms. Review of Systems Unable to obtain: Other (Extremely limited due to patient being poor historian and largely obtained from EMS and daughter) Constitutional: denies: Fever Eyes: denies: Reviewed and negative Ears: denies: Reviewed and negative Nose: denies: Reviewed and negative Cardiac: denies: Chest pain / pressure Respiratory: reports: Cough PD PAST MEDICAL HISTORY - Past Medical History Cardiovascular: Hypertension, High cholesterol Respiratory: None Endocrine/Autoimmune: Type 2 diabetes GI: GERD HEENT: None Psych: Depression Musculoskeletal: Chronic back pain - Past Surgical History Past Surgical History: Yes General: Cholecystectomy Ortho: Knee replacement, Shoulder arthroplasty, Spine surgery, 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 HEENT: Cataracts - Present Medications Home Medications: Ambulatory Orders Medication Instructions Recorded Confirmed Apixaban [Eliquis] 5 mg PO BID #60 tablet 12/26/17 Cholecalciferol (Vitamin D3) 2,000 unit PO DAILY #30 12/26/17 12/21/17 [Vitamin D3] Diphenoxylate HCl/Atropine 1 tab PO BID PRN #20 12/26/17 12/20/17 [Diphenoxylate-Atrop 2.5-0.025] Gabapentin [Neurontin] 600 mg PO TID #90 12/26/17 12/21/17 Ipratropium [place] 2 puffs NS DAILY #60 12/26/17 12/24/17 Levothyroxine Sodium 150 mcg PO DAILY #30 12/26/17 12/21/17 Melatonin 5 mg PO QPM #30 12/26/17 12/24/17 Multivitamin [Multivitamins] 1 each PO DAILY #30 12/26/17 12/21/17 Omeprazole 40 mg PO BIDAC #30 12/26/17 12/20/17 Oxycodone HCl/Acetaminophen 1 tab PO BID PRN #25 12/26/17 12/21/17 [Oxycodone-Acetaminophen 10-325] Primidone [Mysoline] 100 mg PO 1200 #60 12/26/17 12/24/17 Primidone [Mysoline] 100 mg PO QPM #60 12/26/17 12/24/17 Propranolol HCl 80 mg PO 1200 #30 12/26/17 12/24/17 Propranolol HCl 80 mg PO QPM #30 12/26/17 12/24/17 Propranolol [Inderal] 160 mg PO DAILY #120 12/26/17 12/24/17 Saccharomyces Boulardii [Florastor] 250 mg PO BID #60 capsule 12/26/17 Sertraline HCl 100 mg PO DAILY #30 12/26/17 12/20/17 tiZANidine [Zanaflex] 1 mg PO BID PRN #20 12/26/17 12/24/17 Primidone 200 mg PO DAILY 05/08/18 - Allergies Allergies/Adverse Reactions: Allergies Allergy/AdvReac Type Severity Reaction Status Date / Time phenazopyridine Allergy Unknown Nausea Verified 05/08/18 10:10 [Phenazopyridine] Sulfa (Sulfonamide Allergy Unknown Hives Verified 05/08/18 10:10 Antibiotics) adhesive Allergy Rash Verified 05/08/18 10:10 celecoxib [From Celebrex] Allergy Rash Verified 05/08/18 10:10 levofloxacin [From Levaquin] Allergy Hives Verified 05/08/18 10:10 Penicillins Allergy Rash Verified 05/08/18 10:10 morphine AdvReac Unknown Verified 12/20/17 20:44 - Social History Does the pt smoke?: No Smoking Status: Never smoker Does the pt drink ETOH?: No Does the pt have substance abuse?: No - Immunizations Immunizations are current?: No Immunizations: TDAP >10years/unknown - POLST Patient has POLST: No POLST Status: Full Code PD ED PE NORMAL - General General: Other (Patient slightly restless in bed. Well-developed and nourished. No respiratory distress and speaking in full sentences.No evidence of trauma on exam.) - HEENT HEENT: Atraumatic, Moist mucous membranes, Pharynx benign - Neck Neck: Supple, no meningeal sign - Cardiac Cardiac: RRR, No murmur, Other (Port in place over chest without signs of infection or complication) - Respiratory Respiratory: No respiratory distress. No: Clear bilaterally (No wheezes or crackles, but diminished throughout. Dry cough present.) - Abdomen Abdomen: Normal bowel sounds, Soft, Non tender, Non distended - Derm Derm: Normal color, Warm and dry, No rash - Neuro Neuro: Other (No gross motor or sensory deficits and cooperative with exam. No obvious paralysis or paresthesias. Oriented to self only.) Results - Vitals Vitals: Vital Signs - 24 hr 05/08/18 05/08/18 05/08/18 10:07 11:04 11:50 Temperature 37.5 C Heart Rate 91 91 95 Respiratory 20 20 24 Rate Blood Pressure 129/72 144/76 H 140/83 H O2 Saturation 96 97 96 Oxygen O2 Source [] Nasal cannula O2 Source Room air - EKG (time done) 1019 Rate: Rate (enter#) (89) Rhythm: NSR Intervals: RBBB Ischemia: Non specific changes - Labs Labs: Laboratory Tests 05/08/18 05/08/18 05/08/18 10:15 10:35 10:35 WBC 3.1 L RBC 3.70 L Hgb 11.8 L Hct 35.0 L MCV 94.6 MCH 32.0 H MCHC 33.8 RDW 15.0 Plt Count 169 MPV 6.6 L Neut # (Auto) 2.4 Lymph # (Auto) 0.3 L [place] # (Auto) 0.4 Eos # (Auto) 0.0 Baso # (Auto) 0.0 Absolute Nucleated RBC 0.00 Nucleated RBC % 0.0 PT 12.3 INR 1.1 APTT 15.6 L Sodium Potassium Chloride Carbon Dioxide Anion Gap BUN Creatinine Estimated GFR (MDRD) Glucose Lactic Acid Calcium Total Bilirubin AST ALT Alkaline Phosphatase Troponin I Total Protein Albumin Globulin Albumin/Globulin Ratio Lipase Urine Color Urine Clarity Urine pH Ur Specific [place] Urine Protein Urine Glucose (UA) Urine Ketones Urine Occult Blood Urine Nitrite Urine Bilirubin Urine Urobilinogen Ur Leukocyte Esterase Urine RBC Urine WBC Urine WBC Clumps Ur Squamous Epith Cells Urine Bacteria Ur Microscopic Review Urine Culture Comments Influenza A (Rapid) POSITIVE H Influenza B (Rapid) Negative 05/08/18 05/08/18 05/08/18 10:35 10:35 10:35 WBC RBC Hgb Hct MCV MCH MCHC RDW Plt Count MPV Neut # (Auto) Lymph # (Auto) [place] # (Auto) Eos # (Auto) Baso # (Auto) Absolute Nucleated RBC Nucleated RBC % PT INR APTT Sodium 133 L Potassium 3.0 L Chloride 95 L Carbon Dioxide 26 Anion Gap 12.0 BUN 16 Creatinine 0.8 Estimated GFR (MDRD) 69 L Glucose 131 H Lactic Acid 1.0 Calcium 8.5 Total Bilirubin 1.1 H AST 21 ALT 14 Alkaline Phosphatase 87 Troponin I < 0.04 Total Protein 6.6 L Albumin 3.5 Globulin 3.1 Albumin/Globulin Ratio 1.1 Lipase 30 Urine Color Urine Clarity Urine pH Ur Specific [place] Urine Protein Urine Glucose (UA) Urine Ketones Urine Occult Blood Urine Nitrite Urine Bilirubin Urine Urobilinogen Ur Leukocyte Esterase Urine RBC Urine WBC Urine WBC Clumps Ur Squamous Epith Cells Urine Bacteria Ur Microscopic Review Urine Culture Comments Influenza A (Rapid) Influenza B (Rapid) 05/08/18 10:50 WBC RBC Hgb Hct MCV MCH MCHC RDW Plt Count MPV Neut # (Auto) Lymph # (Auto) [place] # (Auto) Eos # (Auto) Baso # (Auto) Absolute Nucleated RBC Nucleated RBC % PT INR APTT Sodium Potassium Chloride Carbon Dioxide Anion Gap BUN Creatinine Estimated GFR (MDRD) Glucose Lactic Acid Calcium Total Bilirubin AST ALT Alkaline Phosphatase Troponin I Total Protein Albumin Globulin Albumin/Globulin Ratio Lipase Urine Color YELLOW Urine Clarity HAZY Urine pH 6.0 Ur Specific [place] 1.020 Urine Protein TRACE Urine Glucose (UA) NEGATIVE Urine Ketones 15 H Urine Occult Blood NEGATIVE Urine Nitrite NEGATIVE Urine Bilirubin NEGATIVE Urine Urobilinogen 0.2 (NORMAL) Ur Leukocyte Esterase SMALL H Urine RBC 0-5 Urine WBC 11-25 H Urine WBC Clumps PRESENT Ur Squamous Epith Cells FEW Squamous Urine Bacteria Few Ur Microscopic Review INDICATED Urine Culture Comments INDICATED Influenza A (Rapid) Influenza B (Rapid) PD MEDICAL DECISION MAKING - ED course Complexity details: reviewed results, re-evaluated patient, considered differential, d/w patient, d/w family ED course: It was difficult to obtain a history given patient's a poor historian and no family members immediately present on patient arrival. EMS provided significant history, which was helpful. Started general workup including CT head to evaluate for any intracranial issues such as stroke or mass, which returned unremarkable. Also obtain chest x-ray to further evaluate for possible pneumonia and other complications, which returned unremarkable for acute pathology. Patient continued on IV fluids, but did not require any medications at this time. Patient remained afebrile. EKG and troponin unremarkable and do not have high suspicion for HI or cardiac pathology at this time.Influenza test also obtained which returned positive for influenza a. However, patient is likely outside of the treatment window for Tamiflu. Screening lab work and urinalysis also returned relatively unremarkable except for some mild electrolyte abnormalities and urine positive for infection. Daughter was able to arrive later on and we extensively discussed patient's workup including likely etiology of influenza causing most of her symptoms, as well as UTI. Patient's daughter reports that patient is expressing chronic UTIs and is already on antibiotic therapy and does not wish to change this therapy.At this time, feel that she is safe to discharge home, particularly as have low concerns for ACS, myocardial infarction, PE, stroke, intra-abdominal pathology, or other acute pathology or illness at this time. Daughter voiced understanding and is comfortable with discharge plan.
[2018-05-08 10:47] LABS: BASOPHILS % (AUTO) 0.3 %; HGB - HEMOGLOBIN 11.8 g/dL (12.0-16.0); LYMPHOCYTES # (AUTO) 0.3 10^3/uL (1.5-3.5); LYMPHOCYTES % (AUTO) 9.2 %; MEAN CORPUSCULAR HGB CONC 33.8 g/dL (32.0-36.0); MEAN CORPUSCULAR VOLUME 94.6 fL (81.0-99.0); MEAN PLATELET VOLUME 6.6 fL (7.9-10.8); MONOCYTES # (AUTO) 0.4 10^3/uL (0.0-1.0); NEUTROPHILS # (AUTO) 2.4 10^3/uL (1.5-6.6); NEUTROPHILS % (AUTO) 77.5 %; PLT - PLATELET COUNT 169 10^3/uL (130-450); WHITE BLOOD COUNT 3.1 x10^3/uL (4.8-10.8)
[2018-05-08 10:54] LABS: INR 1.1 (0.8-1.2); PT - PROTHROMBIN TIME 12.3 secs (9.9-12.6)
[2018-05-08 10:57] LABS: ALBUMIN 3.5 g/dL (3.2-5.5); ALBUMIN/GLOBULIN RATIO 1.1 (1.0-2.2); BILIRUBIN,TOTAL 1.1 mg/dL (0.2-1.0); CALCIUM 8.5 mg/dL (8.5-10.3); CREATININE 0.8 mg/dL (0.4-1.0); TOTAL PROTEIN 6.6 g/dL (6.7-8.2)
[2018-05-08 11:01] LABS: PARTIAL THROMBOPLASTIN TIME 15.6 secs (24.9-33.3)
[2018-05-08 11:10] LABS: BILIRUBIN,URINE NEGATIVE (NEGATIVE); GLUCOSE, URINE (UA) NEGATIVE (NEGATIVE); KETONES,URINE (UA) 15 mg/dL (NEGATIVE); LEUKOCYTE ESTERASE, URINE SMALL (NEGATIVE); NITRITE,URINE NEGATIVE (NEGATIVE); OCCULT BLOOD,URINE NEGATIVE (NEGATIVE); PROTEIN,URINE TRACE mg/dL (NEGATIVE); UROBILINOGEN,URINE 0.2 (NORMAL) E.U./dL (NORMAL)
--- NOTE | 2018-05-08 11:12 | XRAY Report ---
Reason: chest pain Procedure Date: 05/08/2018 Accession Number: [id number] / [id number] Procedure: XR - Chest 1 View X-Ray CPT Code: 60956 FULL RESULT: EXAM: CHEST RADIOGRAPHY EXAM DATE: 05/08/2018 10:50 AM. CLINICAL HISTORY: Chest pain. COMPARISON: CHEST 1 VIEW 12/23/2017 9:09 AM. TECHNIQUE: 1 view. FINDINGS: Lungs/Pleura: No consolidation. No vascular congestion. No pneumothorax. Clip projects over the superior right hilum as before. Mediastinum: Heart is enlarged. Aorta is mildly tortuous. Aortic atherosclerosis. Lobular prominent right hilar contour present. 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 Expansile left lateral rib lesions also likely present on the right are again evident. Lucent lesion in his left clavicle and also possibly in the distal right clavicle present. IMPRESSION: 1. Prominent right hilar contour similar to more prominent compared to 12/23/2017. 2. No consolidation. No vascular congestion. 3. Bilateral rib lesions. More prominent distal bilateral clavicular lesions. RADIA
[2018-05-08 11:14] LABS: CLARITY,URINE HAZY (CLEAR)
[2018-05-08 11:20] LABS: BACTERIA,URINE Few /HPF (None Seen); RBC,URINE 0-5 /HPF (0-5); SQUAMOUS EPITHELIAL CELL,UR FEW Squamous (<= Few); WBC CLUMPS,URINE PRESENT
--- NOTE | 2018-05-08 11:20 | CT Report ---
Reason: cough Procedure Date: 05/08/2018 Accession Number: [id number] / [id number] Procedure: CT - HEAD WO CPT Code: FULL RESULT: EXAM: CT HEAD EXAM DATE: 05/08/2018 10:51 AM. CLINICAL HISTORY: Confusion. COMPARISON: HEAD W/O 11/20/2017 9:42 AM. TECHNIQUE: Multiaxial CT images were obtained from the foramen magnum to the vertex. Reformats: Sagittal and coronal. IV contrast: None. In accordance with CT protocol optimization, one or more of the following dose reduction techniques were utilized for this exam: automated exposure control, adjustment of mA and/or KV based on patient size, or use of iterative reconstructive technique. FINDINGS: Parenchyma: No evidence of an acute vascular insult or acute parenchymal hemorrhage. No midline shift. No mass-effect. Mild parenchymal volume loss with periventricular regions of low attenuation. Extraaxial Spaces: Mildly prominent. No subdural or epidural collections identified. Ventricles: Mildly prominent although stable. Sinuses and Orbits: Severe left maxillary and mild to moderate bilateral ethmoid sinus disease. Mastoid air cells are clear. Bones: No acute fracture or bony lesion. Lucent areas are seen in the calvarium the largest in the right parietal/temporal bone, unchanged. Other: Changes are seen from bilateral lens surgery. Vascular calcifications. IMPRESSION: 1. No acute intracranial abnormality is identified. 2. Parenchymal volume loss and chronic white matter changes. 3. Severe left maxillary sinus disease as before with more prominent mild to moderate bilateral ethmoid sinus disease. RADIA
[2018-05-08] MEDS ORDERED: SODIUM CHLORIDE 0.9% 1,000 ML IV ONE (11:40)
--- NOTE | 2018-05-08 12:43 | ED Physician Documentation ---
ED Addendum - Addendum Addendum: 05/08/18 12:42 Diagnosis Influenza A Status: Good
[2018-05-08 14:45] VITALS: BP 142/79
== END 2018-05-08 14:46 | disposition home or self-care (01) ==
LOC: EDUNIT# → ED 10:01
DX: J10.1 Influenza due to other identified influenza virus with other respiratory manifestations (principal); N39.0 Urinary tract infection, site not specified; I10 Essential (primary) hypertension; E11.9 Type 2 diabetes mellitus without complications; I45.10 Unspecified right bundle-branch block; Z79.01 Long term (current) use of anticoagulants
CPT/HCPCS: 36415; 70450; 71045; 80053; 81001; 81003; 83605; 83690; 84484; 85025; 85610; 85730; 87040; 87077; 87086; 87181; 87275; 87276; 93005; 96360; 99284

== ENCOUNTER 2018-08-14 20:37 | Outpatient (CLI) | payer MEDICARE, OTHER | END 2018-08-14 20:38 | disposition critical access hospital (66) | LOC: EMS 20:37 | PROVIDERS: ATTEND Surgery | DX: R50.9 Fever, unspecified (principal); R11.2 Nausea with vomiting, unspecified | CPT/HCPCS: A0425; A0427 ==

== ENCOUNTER 2018-08-14 20:56 | Emergency (ER) | payer MEDICARE, OTHER ==
[2018-08-14 21:10] VITALS: BP 132/52
--- NOTE | 2018-08-14 21:29 | ED Physician Documentation ---
History of Present Illness - Stated complaint Stated Complaint: N/V, FEVER - Chief complaint Chief Complaint: Fever - History obtained from History obtained from: Patient, Family, EMS - History of Present Illness Timing: Today Improved by: nothing Worsened by: PO intake - Additonal information Additional information: BIBA. evaluated by PMD earlier today, "bad UTI" (per daughter, who is in ED at bedside) and prescribed macrobid. Since going home from PMD's office, she developed fever Tmax 102.6 and n/v; she was given dose of macrobid this evening and immediately vomited this medication. Review of Systems Unable to obtain: Dementia Constitutional: reports: Fever Cardiac: reports: Reviewed and negative Respiratory: reports: Reviewed and negative GI: reports: Nausea, Vomiting. 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, Other (nephrectomy) HEENT: Cataracts - Present Medications Home Medications: Ambulatory Orders Medication Instructions Recorded Confirmed Diphenoxylate HCl/Atropine 1 tab PO BID PRN #20 12/26/17 08/14/18 [Diphenoxylate-Atrop 2.5-0.025] Ipratropium [place] 2 puffs NS DAILY #60 12/26/17 08/14/18 Levothyroxine Sodium 150 mcg PO DAILY #30 12/26/17 08/14/18 Melatonin 5 mg PO QPM #30 12/26/17 08/14/18 Multivitamin [Multivitamins] 1 each PO DAILY #30 12/26/17 08/14/18 Omeprazole 40 mg PO BIDAC #30 12/26/17 08/14/18 Oxycodone HCl/Acetaminophen 1 tab PO BID PRN #25 12/26/17 08/14/18 [Oxycodone-Acetaminophen 10-325] Primidone [Mysoline] 100 mg PO 1200 #60 12/26/17 08/14/18 Propranolol HCl 80 mg PO QPM #30 12/26/17 08/14/18 Propranolol [Inderal] 160 mg PO DAILY #120 12/26/17 08/14/18 Sertraline HCl 100 mg PO DAILY #30 12/26/17 08/14/18 tiZANidine [Zanaflex] 1 mg PO BID PRN #20 12/26/17 08/14/18 Ixazomib Citrate [Ninlaro] 3 mg PO OAW 08/14/18 08/14/18 Nitrofurantoin Monohyd/M-Cryst 100 mg PO TID 08/14/18 08/14/18 [Macrobid 100 mg Capsule] Warfarin [Coumadin] 2.5 mg PO DAILY 08/14/18 08/14/18 - Allergies Allergies/Adverse Reactions: Allergies Allergy/AdvReac Type Severity Reaction Status Date / Time phenazopyridine Allergy Unknown Nausea Verified 08/14/18 21:10 [Phenazopyridine] Sulfa (Sulfonamide Allergy Unknown Hives Verified 08/14/18 21:10 Antibiotics) adhesive Allergy Rash Verified 08/14/18 21:10 celecoxib [From Celebrex] Allergy Rash Verified 08/14/18 21:10 levofloxacin [From Levaquin] Allergy Hives Verified 08/14/18 21:10 Penicillins Allergy Rash Verified 08/14/18 21:10 morphine AdvReac Unknown Verified 08/14/18 21:10 - Social History Does the pt smoke?: No Smoking Status: Never smoker Does the pt drink ETOH?: No Does the pt have substance abuse?: No - Immunizations Immunizations are current?: Yes Immunizations: TDAP >10years/unknown - POLST Patient has POLST: No POLST Status: Full Code PD ED PE NORMAL - Vitals Vital signs reviewed: Yes - General General: Well developed/nourished, Other (AAOx2). No: No acute distress (c/o right back pain which she says is chronic) - HEENT HEENT: Other (tacky/pasty mucous membranes) - Neck Neck: Supple, no meningeal sign - Cardiac Cardiac: RRR, No murmur - Respiratory Respiratory: No respiratory distress, Clear bilaterally - Abdomen Abdomen: Soft, Non tender, Non distended - Back Back: No CVA TTP, No spinal TTP, Other (midline old surgical scars (lower lumbar as well as thoracic)) - Derm Derm: Normal color, Warm and dry - Extremities Extremities: No edema Results - Vitals Vitals: Vital Signs - 24 hr 08/14/18 21:07 Temperature 37.7 C H Heart Rate 78 Respiratory 18 Rate Blood Pressure 132/52 H O2 Saturation 94 Oxygen O2 Source [With Activity] Nasal cannula O2 Source Room air - Labs Labs: Laboratory Tests 08/14/18 08/14/18 08/14/18 21:55 21:55 21:55 WBC 5.0 RBC 2.80 L Hgb 8.5 L Hct 27.4 L MCV 97.9 MCH 30.4 MCHC 31.0 L RDW 14.8 Plt Count 150 MPV 9.0 Neut # (Auto) 4.0 Lymph # (Auto) 0.2 L [place] # (Auto) 0.8 Eos # (Auto) 0.0 Baso # (Auto) 0.0 Absolute Nucleated RBC 0.00 Nucleated RBC % 0.0 PT 28.5 H INR 2.5 H APTT 29.9 Sodium 128 L Potassium 5.8 H Chloride 98 L Carbon Dioxide 17 L Anion Gap 13.0 BUN 65 H Creatinine 4.5 H Estimated GFR (MDRD) 9 L Glucose 117 H Lactic Acid Calcium 8.1 L Total Bilirubin 1.3 H AST 76 H ALT 57 Alkaline Phosphatase 118 Total Protein 6.1 L Albumin 3.3 Globulin 2.8 Albumin/Globulin Ratio 1.2 Lipase 31 Urine Color Urine Clarity Urine pH Ur Specific [place] Urine Protein Urine Glucose (UA) Urine Ketones Urine Occult Blood Urine Nitrite Urine Bilirubin Urine Urobilinogen Ur Leukocyte Esterase Urine RBC Urine WBC Ur Squamous Epith Cells Urine Bacteria Ur Microscopic Review Urine Culture Comments 08/14/18 08/14/18 08/15/18 21:55 22:35 02:05 WBC RBC Hgb Hct MCV MCH MCHC RDW Plt Count MPV Neut # (Auto) Lymph # (Auto) [place] # (Auto) Eos # (Auto) Baso # (Auto) Absolute Nucleated RBC Nucleated RBC % PT INR APTT Sodium 129 L Potassium 5.2 H Chloride 100 L Carbon Dioxide 18 L Anion Gap 11.0 BUN 65 H Creatinine 4.6 H Estimated GFR (MDRD) 9 L Glucose 193 H Lactic Acid 0.7 Calcium 8.0 L Total Bilirubin AST ALT Alkaline Phosphatase Total Protein Albumin Globulin Albumin/Globulin Ratio Lipase Urine Color YELLOW Urine Clarity CLOUDY Urine pH 6.0 Ur Specific [place] <=1.005 Urine Protein TRACE Urine Glucose (UA) NEGATIVE Urine Ketones NEGATIVE Urine Occult Blood SMALL H Urine Nitrite POSITIVE H Urine Bilirubin NEGATIVE Urine Urobilinogen 0.2 (NORMAL) Ur Leukocyte Esterase LARGE H Urine RBC 11-25 H Urine WBC >25 H Ur Squamous Epith Cells RARE Squamous Urine Bacteria Many H Ur Microscopic Review INDICATED Urine Culture Comments INDICATED PD MEDICAL DECISION MAKING - ED course Complexity details: reviewed old records, reviewed results, re-evaluated patient, considered differential, d/w patient, d/w family ED course: Records from ED and (inpatient) faxed to this ED and I reviewed them. D/W Dr. Dong ([facility]). She recommends taking measures to lower potassium before she can accept transfer (due to what types of beds are available). I thus ordered insulin with D50 and on recheck, the potassium has improved to 5.2. I recontacted Dr. Dong and she accepts transfer. Rocephin given in ED prior to transfer. EKG reveals RBBB and no acute findings (similar pattern compared to previous)
[2018-08-14] MEDS ORDERED: ONDANSETRON 4 MG/2 ML VIAL IVP STA (21:48)
[2018-08-14] MEDS ORDERED: SODIUM CHLORIDE 0.9% 500 ML IV STA (21:48)
[2018-08-14 22:01] LABS: BASOPHILS % (AUTO) 0.4 %; EOSINOPHILS % (AUTO) 0.2 %; HGB - HEMOGLOBIN 8.5 g/dL (12.0-16.0); LYMPHOCYTES # (AUTO) 0.2 10^3/uL (1.5-3.5); LYMPHOCYTES % (AUTO) 4.2 %; MEAN CORPUSCULAR HEMOGLOBIN 30.4 pg (27.0-31.0); MEAN CORPUSCULAR VOLUME 97.9 fL (81.0-99.0); MONOCYTES # (AUTO) 0.8 10^3/uL (0.0-1.0); MONOCYTES % (AUTO) 15.6 %; PLT - PLATELET COUNT 150 10^3/uL (130-450); RED CELL DISTRIBUTION WIDTH 14.8 % (12.0-15.0)
[2018-08-14 22:15] LABS: ALBUMIN 3.3 g/dL (3.2-5.5); ALBUMIN/GLOBULIN RATIO 1.2 (1.0-2.2); BILIRUBIN,TOTAL 1.3 mg/dL (0.2-1.0); CALCIUM 8.1 mg/dL (8.5-10.3); CREATININE 4.5 mg/dL (0.4-1.0); INR 2.5 (0.8-1.2); PT - PROTHROMBIN TIME 28.5 secs (9.9-12.6); TOTAL PROTEIN 6.1 g/dL (6.7-8.2)
[2018-08-14 22:22] LABS: PARTIAL THROMBOPLASTIN TIME 29.9 secs (24.9-33.3)
[2018-08-14 22:42] LABS: BILIRUBIN,URINE NEGATIVE (NEGATIVE); GLUCOSE, URINE (UA) NEGATIVE (NEGATIVE); KETONES,URINE (UA) NEGATIVE (NEGATIVE); LEUKOCYTE ESTERASE, URINE LARGE (NEGATIVE); NITRITE,URINE POSITIVE (NEGATIVE); OCCULT BLOOD,URINE SMALL (NEGATIVE); PROTEIN,URINE TRACE mg/dL (NEGATIVE); UROBILINOGEN,URINE 0.2 (NORMAL) E.U./dL (NORMAL)
[2018-08-14 22:45] LABS: CLARITY,URINE CLOUDY (CLEAR)
[2018-08-14 22:49] LABS: BACTERIA,URINE Many /HPF (None Seen); SQUAMOUS EPITHELIAL CELL,UR RARE Squamous (<= Few)
[2018-08-15] MEDS ORDERED: cefTRIAXone 1 GM in SODIUM CHLORIDE 0.9% MINIBAG 100 ML IV STA (00:21)
[2018-08-15] MEDS ORDERED: INSULIN REGULAR HUMAN 100 UNIT/1 ML 10 ML MDV SUBQ STA (00:26)
[2018-08-15] MEDS ORDERED: DEXTROSE 50% ABBOJECT 25 GM/50 ML SYRINGE IVP STA (00:28)
[2018-08-15 06:00] LABS: CREATININE 4.6 mg/dL (0.4-1.0)
== END 2018-08-15 09:17 | disposition home or self-care (01) ==
LOC: EDUNIT# → ED 20:56
DX: E87.5 Hyperkalemia (principal); N17.9 Acute kidney failure, unspecified; N39.0 Urinary tract infection, site not specified; I45.10 Unspecified right bundle-branch block; I10 Essential (primary) hypertension; E11.9 Type 2 diabetes mellitus without complications; F03.90 Unspecified dementia, unspecified severity, without behavioral disturbance, psychotic disturbance, mood disturbance, and anxiety; Z79.01 Long term (current) use of anticoagulants
CPT/HCPCS: 36415; 80048; 80053; 81001; 83605; 83690; 85025; 85610; 85730; 87077; 87086; 87181; 93005; 96374; 99283; 99284; J1815; 81003

== ENCOUNTER 2018-08-15 04:12 | Outpatient (CLI) | payer MEDICARE, OTHER | END 2018-08-15 04:13 | disposition short-term general hospital (02) | LOC: EMS 04:12 | PROVIDERS: ATTEND Surgery | DX: N17.9 Acute kidney failure, unspecified (principal); N39.0 Urinary tract infection, site not specified | CPT/HCPCS: A0425; A0426 ==

== ENCOUNTER 2018-10-25 12:31 | Outpatient (CLI) | payer MEDICARE, OTHER | END 2018-10-25 12:32 | disposition short-term general hospital (02) | LOC: EMS 12:31 | PROVIDERS: ATTEND Surgery | DX: R10.9 Unspecified abdominal pain (principal); R82.90 Unspecified abnormal findings in urine; R11.0 Nausea | CPT/HCPCS: A0425; A0429; A0888 ==

== ENCOUNTER 2018-11-16 10:22 | Outpatient (CLI) | payer MEDICARE, OTHER | END 2018-11-16 10:23 | disposition critical access hospital (66) | LOC: EMS 10:22 | PROVIDERS: ATTEND Surgery | DX: M25.552 Pain in left hip (principal) | CPT/HCPCS: A0425; A0429 ==

== ENCOUNTER 2018-11-20 14:48 | Outpatient (CLI) | payer MEDICARE, OTHER | END 2018-11-20 14:49 | LOC: EMS 14:48 | PROVIDERS: ATTEND Surgery | DX: M54.9 Dorsalgia, unspecified (principal); Z74.01 Bed confinement status | CPT/HCPCS: A0425; A0428 ==

== ENCOUNTER 2019-01-05 10:58 | Outpatient (CLI) | payer MEDICARE, OTHER, MEDICAID | END 2019-01-05 10:59 | disposition short-term general hospital (02) | LOC: EMS 10:58 | PROVIDERS: ATTEND Surgery | DX: M25.551 Pain in right hip (principal) | CPT/HCPCS: A0425; A0429 ==